=== PATIENT | female | born 1945 | race Caucasian/White ===

== ENCOUNTER → 2016-06-07 | Outpatient (CLI) | payer MEDICARE ==
[~2016-06-07] MED LIST: ASPI-587 PO; ESCI20TA2 PO; ESTR0.5T PO; FLT05NA16 NSEACH; MEDR2.5T PO; METO25TA PO; OMEG1CAP51 PO; PNT40TEC PO; SIMV40TA4 PO
--- OUTSIDE RECORDS SUMMARY | 2016-06-07 14:22 | XMS REPORT | Continuity of Care Document ---
Author Author [facility] Organization [facility] Address Unknown Phone Unavailable Allergies Active Description Code Type Severity Reaction Onset Reported/Identified Relationship to Patient Clinical Status Yes NKANo Known Allergies NKA Miscellaneous Allergy Mild N/A 11/10/2005 Medications Problems Date Dx Coded Attending Type Code Diagnosis Diagnosed By 10/29/2014 DEAN LUONG DO Ot 715.90 10/29/2014 DEAN LUONG DO Ot 724.3 11/21/2014 DEAN LUONG DO Ot 715.90 11/21/2014 DEAN LUONG DO Ot 724.3 11/27/2014 DEAN LUONG DO Ot 715.90 11/27/2014 DEAN LUONG DO Ot 724.3 Procedures Results Encounters ACCT No. Visit Date/Time Discharge Status Pt. Type Provider Facility Loc./Unit Complaint [id number] 10/27/2014 14:53:00 2014 23:59:59 CLS Outpatient DEAN LUONG DO [facility] RAD [id number] 06/18/2013 12:20:00 2013 15:55:00 DIS Outpatient [id number] 06/12/2013 07:29:00 2013 23:59:59 CLS Outpatient
--- NOTE | 2016-06-23 19:01 | Diagnostic Imaging Report ---
Bilateral screening mammogram The current study was also evaluated with a Computer Aided Detection (CAD) system. Indication: Screening. No current complaints stated on the questionnaire. COMPARISON: 04/09/15. FINDINGS: The breasts are composed of heterogeneously dense parenchyma which may decrease mammographic sensitivity. There are benign-appearing calcifications seen. Allowing for technique and positional differences, no suspicious change is seen. IMPRESSION: Dense breasts with no definite change. ACR BI-RADS Category 2: Benign findings. Result letter will be mailed to the patient. Note: At least 10% of breast cancer is not imaged by mammography. Dictated by: Dictated on workstation # [id number]
== END ==
LOC: RAD 14:19
PROVIDERS: ATTEND Obstetrics & Gynecology
DX: Z12.31 Encounter for screening mammogram for malignant neoplasm of breast (principal)
CPT/HCPCS: 77067

== ENCOUNTER → 2017-01-13 | Outpatient (CLI) | payer MEDICARE ==
[~2017-01-13] MED LIST changes: +CATHETER FLUSH 10 ML SYR IV PRN; +REGADENOSON 0.4 MG/5 ML SYR (LEXISCAN) IV ONE
[2017-01-13 08:07] VITALS: BP 176/103
--- NOTE | 2017-01-14 10:04 | STRESS TEST ---
DATE OF SERVICE: 01/13/2017 RESTING AND POST REGADENOSON TECHNETIUM 99M TETROFOSMIN SPECT CT IMAGING ORDERING PHYSICIAN: Dr. Lopes. PRIMARY PHYSICIAN: Dr. Lopes. CLINICAL DIAGNOSES: Fatigue, hypertension. Baseline images were carried out after injection of 10.75 mCi of technetium-99m Tetrofosmin. This was followed by 0.4 mg regadenoson and 30.5 mCi of technetium-99m Tetrofosmin under Dr. Lopes's supervision and the electrocardiographic portion of the study is reported separately by him. Review of images at rest and following stress does not indicate any significant perfusion defects consistent with any significant myocardial ischemia or infarction. Gated images show normal global left ventricular systolic function with normal regional wall motion. Left ventricular ejection fraction is calculated to be 67%. Left ventricular end-diastolic volume is 30 mL. TID is absent (1.11). CONCLUSIONS: 1. No evidence of any significant myocardial ischemia or infarction on this study. 2. Normal global left ventricular systolic function with a calculated ejection fraction of 67%. 3. Normal regional wall motion. Job ID: [id number] DocumentID: [id number] Dictated Date: 01/13/2017 10:12:00 Tour Operator Date: 01/13/2017 10:52:30 Dictated By: WILLIAM HENNING MD, MA, FACP, FACC,
== END ==
LOC: CARD 06:41
PROVIDERS: ATTEND Internal Medicine
DX: R53.83 Other fatigue (principal); I10 Essential (primary) hypertension
CPT/HCPCS: 78452; 93017

== ENCOUNTER 2018-08-07 05:34 | Outpatient (CLI) | payer MEDICARE ==
[~2018-08-07] VITALS: Ht 162.6 cm; Wt 59.4 kg
[~2018-08-07 05:34] MED LIST changes: -CATHETER FLUSH 10 ML SYR IV PRN; -REGADENOSON 0.4 MG/5 ML SYR (LEXISCAN) IV ONE
[2018-08-07] MEDS ORDERED: METO-370 PO (13:37)
[2018-08-07] MEDS ORDERED: UBID100C17 PO (13:37)
[2018-08-07] MEDS ORDERED: TR1C15 TP (13:37)
[2018-08-07] MEDS ORDERED: OMG1KC PO (13:37)
[2018-08-07] MEDS ORDERED: OMEP20CA12 PO (13:37)
[2018-08-07] MEDS ORDERED: CHOL500044 PO (13:37)
[2018-08-07] MEDS ORDERED: LORA10TA7 PO (13:37)
[2018-08-07] MEDS ORDERED: DOCU-238 PO (13:37)
[2018-08-07] MEDS ORDERED: ESCI20TA PO (13:37)
[2018-08-07] MEDS ORDERED: AMLO5TAB9 PO (13:37)
[2018-08-07] MEDS ORDERED: SIMV40TA4 PO (13:37)
[2018-08-07] MEDS ORDERED: FLUT9.9S NS (13:37)
[2018-08-07] MEDS ORDERED: ASPI-586 PO (13:37)
== END 2018-08-07 14:08 | disposition home or self-care (01) ==
LOC: PREOP 05:34
PROVIDERS: ATTEND Surgery
DX: Z01.818 Encounter for other preprocedural examination (principal)

== ENCOUNTER 2018-08-14 07:01 | Day surgery (SDC) | payer MEDICARE ==
[~2018-08-14] VITALS: Ht 162.6 cm; Wt 59.4 kg
[~2018-08-14 07:01] MED LIST changes: +AMLO5TAB9 PO; +ASPI-586 PO; +CHOL500044 PO; +DOCU-238 PO; +ESCI20TA PO; +FLUT9.9S NS; +LORA10TA7 PO; +METO-370 PO; +OMEP20CA12 PO; +OMG1KC PO; +TR1C15 TP; +UBID100C17 PO
[2018-08-14] MEDS ORDERED: LACTATED RINGERS 1,000 ML IV STA (07:02)
--- OUTSIDE RECORDS SUMMARY | 2018-08-14 07:04 | XMS REPORT | Continuity of Care Document ---
Author Organization Unknown Address Unknown Allergies Active Description Code Type Severity Reaction Onset Reported/Identified Relationship to Patient Clinical Status Yes NKANo Known Allergies NKA Miscellaneous Allergy Mild N/A 11/10/2005 Yes clindamycin [id number] Drug Allergy Mild RASH 08/07/2018 Yes phenytoin [id number] Drug Allergy Mild HIVES 08/07/2018 Medications There is no data. Problems Date Dx Coded Attending Type Code Diagnosis Diagnosed By 06/18/2013 LEWIS BUENO DO Ot 530.11 REFLUX ESOPHAGITIS 06/18/2013 LEWIS BUENO DO Ot 530.81 ESOPHAGEAL REFLUX 06/18/2013 LEWIS BUENO DO Ot 553.3 DIAPHRAGMATIC HERNIA 06/18/2013 LEWIS BUENO DO Ot 562.10 DIVERTICULOSIS COLON (W/O MENT OF HEMORR 06/18/2013 LEWIS BUENO DO Ot V16.0 FAMILY HX-GI MALIGNANCY 10/29/2014 DEAN LUONG DO Ot 715.90 10/29/2014 DEAN LUONG DO Ot 724.3 11/21/2014 DEAN LUONG DO Ot 715.90 11/21/2014 DEAN LUONG DO Ot 724.3 11/27/2014 DEAN LUONG DO Ot 715.90 11/27/2014 DEAN LUONG DO Ot 724.3 06/07/2016 ROLANDO TREVINO, GRACIELA Patel Ot Z12.31 ENCNTR SCREEN MAMMOGRAM FOR MALIGNANT NE 06/07/2016 GRACIELA MARSHALL MD Ot Z12.31 ENCNTR SCREEN MAMMOGRAM FOR MALIGNANT NE 06/07/2016 GRACIELA MARSHALL MD Ot Z12.31 ENCNTR SCREEN MAMMOGRAM FOR MALIGNANT NE 06/09/2016 LEWIS BUENO DO Ot V72.84 EXAM PRE-OPERATIVE NOS 06/09/2016 DEAN LUONG DO Ot 715.90 OSTEOARTHROS NOS-UNSPEC 06/09/2016 DEAN LUONG DO Ot 724.3 SCIATICA 06/09/2016 ROLANDO TREVINO, GRACIELA Patel Ot Z12.31 ENCNTR SCREEN MAMMOGRAM FOR MALIGNANT NE 06/28/2016 GRACIELA MARSHALL MD Ot Z12.31 ENCNTR SCREEN MAMMOGRAM FOR MALIGNANT NE 01/16/2017 DEAN LUONG DO Ot I10 ESSENTIAL (PRIMARY) HYPERTENSION 01/16/2017 DEAN LUONG DO Ot R53.83 OTHER FATIGUE 02/06/2017 DEAN LUONG DO Ot I10 ESSENTIAL (PRIMARY) HYPERTENSION 02/06/2017 DEAN LUONG DO Ot R53.83 OTHER FATIGUE 02/10/2017 DEAN LUONG DO Ot I10 ESSENTIAL (PRIMARY) HYPERTENSION 02/10/2017 DEAN LUONG DO Ot R53.83 OTHER FATIGUE 08/07/2018 LEWIS BUENO DO Ot Z01.818 ENCOUNTER FOR OTHER PREPROCEDURAL EXAMIN 08/10/2018 LEWIS BUENO DO Ot V72.84 EXAM PRE-OPERATIVE NOS 08/10/2018 DEAN LUONG DO Ot 715.90 OSTEOARTHROS NOS-UNSPEC 08/10/2018 DEAN LUONG DO Ot 724.3 SCIATICA 08/10/2018 ROLANDO TREVINO, GRACIELA Patel Ot Z12.31 ENCNTR SCREEN MAMMOGRAM FOR MALIGNANT NE 08/10/2018 DEAN LUONG DO Ot I10 ESSENTIAL (PRIMARY) HYPERTENSION 08/10/2018 DEAN LUONG DO Ot R53.83 OTHER FATIGUE Procedures There is no data. Results There is no data. Encounters ACCT No. Visit Date/Time Discharge Status Pt. Type Provider Facility Loc./Unit Complaint [id number] 08/07/2018 05:34:00 08/07/2018 14:08:00 DIS Outpatient LEWIS BUENO DO [facility] PREOP COLONOSCOPY/EGD [id number] 01/13/2017 06:41:00 01/13/2017 23:59:59 CLS Outpatient DEAN LUONG DO [facility] CARD FATIGUE,HTN [id number] 06/07/2016 14:19:00 06/07/2016 23:59:59 CLS Outpatient ROLANDO TREVINO, GRACIELA Patel [facility] RAD SCREENING [id number] 10/27/2014 14:53:00 10/27/2014 23:59:59 CLS Outpatient DEAN LUONG DO [facility] RAD SCIATICA OSTEOARTHRITIS [id number] 06/18/2013 12:20:00 06/18/2013 15:55:00 DIS [facility];REFLUX [id number] 06/12/2013 07:29:00 06/12/2013 23:59:59 CLS Outpatient LEWIS BUENO DO [facility] PREOP FAMILY HISTORY COLON CANCER;REFLUX [id number] 08/14/2018 08:00:00 PEN Preadmit LEWIS BUENO DO [facility] ENDO SCREENING/FAMILY HX COLON CA/GERD
[2018-08-14] MEDS ORDERED: LACTATED RINGERS 1,000 ML IV ONE (07:09)
[2018-08-14] MEDS ORDERED: HURRICAINE EXT TUBE (BENZOCAINE) XX PRN (07:15)
[2018-08-14 07:24] VITALS: BP 166/90
[2018-08-14] MEDS ORDERED: PROPOFOL INJECTION 50 ML IV ONE (07:28)
[2018-08-14] MEDS ORDERED: MIDAZOLAM 2 MG/2 ML (VERSED) VIAL ONE (07:28)
[2018-08-14] MEDS ORDERED: HURRICAINE EXT TUBE (BENZOCAINE) ONE (08:09)
--- NOTE | 2018-08-14 08:18 | Progress Note-Pre Operative ---
Pre-Operative Progress Note H&P Reviewed The H&P was reviewed, patient examined and no changes noted. Date Seen by Provider: August 14, 2018 Time Seen by Provider: 08:00 Date H&P Reviewed: August 14, 2018 Time H&P Reviewed: 08:00 Pre-Operative Diagnosis: family history colon cancer, gerd LEWIS BUENO DO August 14, 2018 08:18
--- NOTE | 2018-08-14 08:50 | Progress Note-Post Operative ---
Post-Operative Progess Note Surgeon (s)/Sales/Marketing (s) Surgeon LEWIS BUENO DO Sales/Marketing: na Pre-Operative Diagnosis family history colon cancer, gerd Post-Operative Diagnosis hiatal hernia, normal colon Procedure & Operative Findings Date of Procedure 08/14/18 Procedure Performed/Findings egd c biopsies, colonoscopy Anesthesia Type per rotor balancer Estimated Blood Loss Estimated blood loss (mL): none Specimens/Packing Specimens Removed antrum, ge LEWIS BUENO DO August 14, 2018 08:50
[2018-08-14] MEDS ORDERED: PANT40TA2 PO (08:51)
[2018-08-14 09:00] VITALS: BP 115/70
[2018-08-14 09:25] VITALS: BP 154/80
[2018-08-14 09:26] VITALS: BP 154/80
--- NOTE | 2018-08-14 11:12 | Anesthesia-General Post-Op ---
MAC Patient Condition Mental Status/LOC: Same as Preop Cardiovascular: Satisfactory Nausea/Vomiting: Absent Respiratory: Satisfactory Pain: Controlled Complications: Absent Post Op Complications Complications None Follow Up Care/Instructions Patient Instructions None needed. Anesthesiology Discharge Order Discharge Order Patient is doing well, no complaints, stable vital signs, no apparent adverse anesthesia problems. No complications reported per nursing. MARIA INES BROWN CRNA August 14, 2018 11:12
--- NOTE | 2018-08-14 12:43 | OPERATIVE REPORT ---
DATE OF SERVICE: 08/14/2018 PREOPERATIVE DIAGNOSES: Family history of colon cancer and GERD. POSTOPERATIVE DIAGNOSES: Hiatal hernia, normal colon. PROCEDURES: EGD with biopsies, colonoscopy. SURGEON: Lewis Santillan DO ANESTHESIA: Per PODOPEDIATRICIAN. ESTIMATED BLOOD LOSS: None. COMPLICATIONS: None. INDICATIONS: The patient is a 72-year-old female with a family history of colon cancer and increasing reflux symptoms. She understands the risk and benefits of procedure and wished to proceed with procedure. Consent was signed and on the chart. DESCRIPTION OF PROCEDURE: The patient was taken to the endoscopy suite, placed in left lateral recumbent position. Timeout was performed. Scope was inserted in the mouth, down the esophagus, stomach and into the duodenum without difficulty. There were no polyps, masses or ulcerations of the duodenum. Scope was then slowly retracted back into the stomach, which was further insufflated. No polyps, masses or ulcerations were present in the stomach. Biopsy of the antrum was obtained. Scope was retroflexed noting a small hiatal hernia. No other pathology was noted. Scope was returned to its normal position, slowly withdrawn to distal esophagus, which had no polyps, masses or ulcerations. Biopsy of the GE junction was obtained. Scope was then slowly retracted back to completely removed, noting no other pathology. Digital rectal exam was performed. No palpable polyps, masses or ulcerations. The scope was inserted in the rectum and advanced all the way to the cecum with minimal difficulty. Prep was adequate. Scope was then slowly retracted back. There were no polyps, masses or ulcerations in the cecum, ascending, transverse, descending and sigmoid colon. Once in the rectum, scope was retroflexed noting no other pathology. Scope was returned to its normal position, slowly withdrawn until completely removed. The patient tolerated the procedure well without any complication. She was taken to recovery room in stable condition. RECOMMENDATIONS: The patient will follow up in the office in 2 weeks to discuss pathology results. If she has any problems before that she should be seen at that time. We will stop the omeprazole and start Protonix 40 mg daily to see if she has any improvement. If no improvement, we will consider working up her gallbladder. Job ID: [id number] DocumentID: [id number] Dictated Date: 08/14/2018 08:54:24 Video Control Operator Date: 08/14/2018 12:43:01 Dictated By: LEWIS SANTILLAN DO
== END 2018-08-14 09:30 | disposition home or self-care (01) ==
LOC: ENDO 07:01
PROVIDERS: ATTEND Surgery
DX: Z12.11 Encounter for screening for malignant neoplasm of colon (principal); Z80.0 Family history of malignant neoplasm of digestive organs; K21.9 Gastro-esophageal reflux disease without esophagitis; K44.9 Diaphragmatic hernia without obstruction or gangrene; I10 Essential (primary) hypertension; E78.5 Hyperlipidemia, unspecified; F41.9 Anxiety disorder, unspecified; Z79.899 Other long term (current) drug therapy; Z79.82 Long term (current) use of aspirin
CPT/HCPCS: 43239; G0105

== ENCOUNTER → 2018-09-11 | Outpatient (CLI) | payer MEDICARE ==
[~2018-09-11] MED LIST changes: +PANT40TA2 PO
--- NOTE | 2018-09-11 10:16 | Diagnostic Imaging Report ---
PROCEDURE: US Gallbladder. TECHNIQUE: Multiple real-time grayscale images were obtained over the right upper quadrant in various projections. INDICATION: Epigastric pain. COMPARISON: None available. FINDINGS: The liver is normal in size and echogenicity. There is no focal hepatic mass. The main portal vein is patent with antegrade flow. The gallbladder is distended without gallstones, wall thickening, or pericholecystic fluid. The common bile duct measures up to 0.5 cm in diameter. No intrahepatic biliary dilation. The visualized portions of the pancreas are normal. Portions of the head and tail are obscured by overlying bowel gas. The right kidney is normal in size. No hydronephrosis, shadowing calculi, or suspicious mass lesion. IMPRESSION: 1. No cholelithiasis or features of acute cholecystitis. 2. No biliary duct dilatation. Dictated by: Dictated on workstation # [id number]
== END ==
LOC: RAD 07:52
PROVIDERS: ATTEND Surgery
DX: R10.13 Epigastric pain (principal)
CPT/HCPCS: 76705

== ENCOUNTER → 2018-09-24 | Outpatient (CLI) | payer MEDICARE ==
[~2018-09-24] MED LIST changes: +CATHETER FLUSH 10 ML SYR IV PRN
--- NOTE | 2018-09-24 20:33 | Diagnostic Imaging Report ---
INDICATION: Epigastric pain. TECHNIQUE: Acquisitions were acquired of the abdomen after the administration of 5.22 mCi of technetium-99m Choletec. The ejection fraction was calculated after the patient ingested 8 ounces of Ensure one hour into the examination. FINDINGS: There is homogeneous uptake of isotope throughout the liver. There is significant accumulation in the gallbladder by 30 minutes. There is free flow of activity in the small bowel. The ejection fraction was calculated to be 82%. IMPRESSION: Normal hepatobiliary scan and ejection fraction. Dictated by: Dictated on workstation # [id number]
== END ==
LOC: CARD 12:52
PROVIDERS: ATTEND Surgery
DX: R10.13 Epigastric pain (principal)
CPT/HCPCS: 78227

== ENCOUNTER 2019-05-06 19:58 | Outpatient (CLI) | payer MEDICARE ==
[~2019-05-06 19:58] MED LIST changes: -CATHETER FLUSH 10 ML SYR IV PRN; -METO-370 PO; +METO50TA7 PO; +OMEP-280 PO; -OMEP20CA12 PO; +SIMV40TA25 PO
== END 2019-05-07 06:42 | disposition home or self-care (01) ==
LOC: SLEEP 19:58
PROVIDERS: ATTEND Internal Medicine Sleep Medicine
DX: G47.33 Obstructive sleep apnea (adult) (pediatric) (principal); I10 Essential (primary) hypertension; E78.00 Pure hypercholesterolemia, unspecified; D32.9 Benign neoplasm of meninges, unspecified; Z80.2 Family history of malignant neoplasm of other respiratory and intrathoracic organs
CPT/HCPCS: 95811

== ENCOUNTER 2020-01-24 07:15 | Outpatient (RCR) | payer MEDICARE ==
[~2020-01-24] VITALS: Ht 162 cm; Wt 62.0 kg
[~2020-01-24 07:15] MED LIST changes: +AMLO-250 PO; -AMLO5TAB9 PO; -OMEP-280 PO; +OMEP20CA18 PO
[2020-01-24] MEDS ORDERED: CATHETER FLUSH 10 ML SYR IV PRN (07:30)
[2020-01-24] MEDS ORDERED: REGADENOSON 0.4 MG/5 ML SYR (LEXISCAN) IV ONE ×3 (08:03→08:45)
[2020-01-24 08:33] VITALS: BP 165/88
--- NOTE | 2020-01-24 11:22 | Cardiology Stress Test Report ---
Stress Test Report Date of Procedure/Referring: Date of Procedure: Jan 24, 2020 PCP Colton Lopes DO Admitting Physician Colton Lopes DO Indications: CAD Baseline Vital Signs Vital Signs Date Time Temp Pulse Resp B/P (MAP) Pulse Ox O2 Delivery O2 Flow Rate FiO2 01/24/20 08:33 88 18 165/88 (344) 97 Summary: Patient receive a resting and stress dose of Myoview, images were acquired and reviewed in the short axis view, horizontal long axis view and vertical long axis view. TID: 1.08 SSS: 0 SDS: 0 EF: 64 1. No ischemia or infarction on SPECT images 2. Normal left ventricular size, EF 64 percent HELEN VARGAS MD Jan 24, 2020 11:22
== END 2020-04-23 | disposition home or self-care (01) ==
LOC: CARD 07:15 → EDSTATUS 07:15 → CARD 08:16
PROVIDERS: ATTEND Internal Medicine
DX: I25.10 Atherosclerotic heart disease of native coronary artery without angina pectoris (principal); R19.7 Diarrhea, unspecified
CPT/HCPCS: 78452; 93017; A9502

== ENCOUNTER 2021-05-04 13:17 | Inpatient (IN) | payer MEDICARE ==
[~2021-05-04] VITALS: Ht 162.1 cm; Wt 63.0 kg
[~2021-05-04 13:17] MED LIST changes: +ACET-2267 PO; +ALPRAZolam 0.25 MG (XANAX) TAB PO PRN; +ASPI-1238 PO; +ATOR80TA76 PO; +BISACODYL 10 MG SUPP (DULCOLAX) PR PRN; +CALCIUM CARBONATE 500 MG (TUMS) TAB.CHEW PO PRN; +CHOL-34 PO; +DEXA4TAB PO; +DOCU-143 PO; -DOCU-238 PO; +DOCU-26 PO; +DOCUSATE SODIUM 100 MG (COLACE) CAP PO PRN; +ESCI20TA39 PO; +FAMO1TAB3 PO; +FLEET ENEMA ADULT 1 EA BTL PR PRN; +FLUT9.9S NSEACH; +LACTULOSE SYRUP 10GM/15ML (ENULOSE) 30ML UDC PO PRN; +LEVE500T95 PO; +LOPERAMIDE 2 MG (IMODIUM) TABLET PO PRN; +MELATONIN 3 MG TABLET PO PRN; +METH-731 PO; +METO50TA15 PO; +OMEG-157 PO; +ONDANSETRON 4 MG (ZOFRAN) ORAL DISSOLVE TAB PO PRN; +OXYC-473 PO; +SENN-109 PO; +UBID100C44 PO; +diphenhydrAMINE 25 MG TAB (BENADRYL) PO PRN; +guaiFENesin/CODEINE (ROBITUSSIN AC) 10ML UDC PO PRN
[2021-05-04 14:00] VITALS: BP 142/76
--- NOTE | 2021-05-04 14:14 | Occupational Therapy Eval ---
OT Evaluation-General/PLF Medical Diagnosis Admission Date May 04, 2021 at 13:17 Medical Diagnosis: CVA Onset Date: Apr 27, 2021 Therapy Diagnosis Therapy Diagnosis: decreased ADL status Height/Weight Height (Feet): 5 Height (Inches): 4.00 Weight (Pounds): 131 Weight (Ounces): 0.0 Referral Physician: Aurora Referral Reason: Activity Tolerance, Self Care, Evaluation/Treatment, Strengthening/ROM Medical History Additional Medical History arthritis, GERD, hiatal hernia, hyperlipidemia, HTN, meningioma s/p resection 2005, DILLON on CPAP Current History recurrent meningioma s/p 2nd resection 04/29/21. IR on 04/27 for pre op emboli complicated by thrombus in BETO; s/p IA tPA TICI achieved. Social History Home: Multilevel Current Living Status: Spouse Entry Into Home: Stairs With Railing Steps Into Home: 3 Steps Inside Home: 12 Pt lives in a 2 story house, her primary bedroom/bathroom in the basement. There is a bedroom/bathroom on the main level, but pt doesn't want to use. ADL-Prior Level of Function SCALE: Activities may be completed with or without assistive devices. 2-Eojngxajwg-pohqspn completes the activity by him/herself with no assistance from a helper. 5-Set-up or Clean-up Assistance-helper sets up or cleans up; patient completes activity. Avella assists only prior to or following the activity. 4-Supervision or Touching Assistance-helper provides verbal cues and/or touching/steadying and/or contact guard assistance as patient completes activity. Assistance may be provided throughout the activity or intermittently. 3-Partial/Moderate Assistance-helper does LESS THAN HALF the effort. Avella lifts, holds or supports trunk or limbs, but provides less than half the effort. 2-Substantial/Maximal Assistance-helper does MORE THAN HALF the effort. Avella lifts or holds trunk or limbs and provides more than half the effort. 6-Jvndclowv-zllvop does ALL the effort. Patient does none of the effort to complete the activity. Or, the assistance of 2 or more helpers is required for the patient to complete the activity. If activity was not attempted, code reason: 7-Patient Refused. 9-Not Applicable-not attempted and the patient did not perform the activity before the current illness, exacerbation or injury. 10-Not Attempted due to Environmental Limitations-(lack of equipment, weather restraints, etc.). 88-Not Attempted due to Medical Conditions or Safety Concerns. ADL PLOF Comments Pt reports IND with ADLs and functional mobility at [facility], no AD/AE. Pt is able to go up/down the flight of stairs within her home multiple times throughout the day. In the primary bathroom downstairs, she has a walk in shower with a SC. On the main level she has a bathroom with a tub/shower and one that is handicap accessible that has a shower and grab bars. Self Care: Independent Functional Cognition: Independent DME/Equipment: Bath Chair, Shower DME/Equipment Comments owns a walker and a cane OT Current Status Subjective Pt arrived to [facility] with daughter and . Pt denied pain Mental Status/Objective Patient Orientation: Person, Place, Situation Current Glasses/Contacts: Yes Hearing Aids: No Dentures/Partials: No Hand Dominance: Right Upper Extremity ROM WFL, BUE shoulder flexion to approx 150 degrees Upper Extremity Coordination WFL Upper Extremity Sensation WFL Upper Extremity Strength grossly 4+/5 ADL-Treatment Eating (QC): 6 (IND with breakfast per pt report.) Oral Hygiene (QC): 7 Shower/Bathe Self (QC): 7 Upper Body Dressing (QC): 7 Lower Body Dressing (QC): 7 On/Off Footwear (QC): 7 Toileting Hygiene (QC): 7 Other Treatments OT evaluation complete. OT/PT cotreat due to skill of 2 clinicians required which a rehabilitation caseworker could not perform in order to coordinate UE/LEs, decrease fall risk, focus on higher level balance tasks, and due to pt's limitations in strength and activity tolerance. OT focused on UE placement, cues for sequencing and safety, and ADLs, PT focused on LE placement, gross overall movements, transfers/mobility. Pt completed functional mobility around [facility] common area using FWW, car transfer, bed mobility, stairs, and uneven surface, taking rest breaks as needed. Pt completed visual scanning task, locating mcclain bags throughout upper/lower cabinets and drawers. Pt able to complete x2 trials, min verbal cues to locate all objects. Pt taken to therapy gym, completing balloon batting activity. Pt attempted to complete without UE support, but unsteady, instead completing 1 round using RUE and 1 round LUE. Pt returned to room, transferring to recliner. Post tx, pt in recliner, call light in reach and all needs met IND with rolling and supine to/from sit, sit to/from stand transfer CGA, CGA car transfer. Functional mobility 200' using FWW, CGA. Pt needed occasional cues for positioning and safety. Education OT Patient Education: Correct positioning, Energy conservation, Modified ADL techniques, Progress toward Goal/Update tx plan, Purpose of tx/functional activities, Rehab process Teaching Recipient: Patient Teaching Methods: Discussion Response to Teaching: Verbalize Understanding OT Short Term Goals Short Term Goals Time Frame: May 12, 2021 Toileting hygiene: 4 Upper body dressin Lower body dressin OT Shelter Goals Disability Benefits Specialist Goals Time Frame: May 28, 2021 Eating (QC): 6 Oral Hygiene (QC): 6 Toileting Hygiene (QC): 6 Shower/Bathe Self (QC): 6 Upper Body Dressing (QC): 6 Lower Body Dressing (QC): 6 On/Off Footwear (QC): 6 Additional Goals: 1-Demonstrate ADL Tasks, 2-Verbalize Understanding, 3- ImproveStrength/Liang 1=Demonstrate adherence to instructed precautions during ADL tasks. 2=Patient will verbalize/demonstrate understanding of assistive devices/modifications for ADL. 3=Patient will improve strength/tolerance for activity to enable patient to perform ADL's. OT Education/Plan Problem List/Assessment Assessment: Decreased Activ Tolerance, Decreased UE Strength, Impaired Funct Balance, Impaired I ADL's, Impaired Self-Care Skills Discharge Recommendations Plan/Recommendations: Continue POC Treatment Plan/Plan of Care Patient would benefit from OT for education, treatment and training to promote independence in ADL's, mobility, safety and/or upper extremity function for ADL's. Plan of Care: ADL Retraining, Functional Mobility, Group Exercise/Act as Ind, UE Funct Exercise/Act Treatment Duration: May 28, 2021 Frequency: At least 5 of 7 days/Wk (IRF) Estimated Hrs Per Day: 1.5 hours per day Agreement: Yes Rehab Potential: Good Time/GCodes Start Time: 13:25 Stop Time: 14:55 Total Time Billed (hr/min): 90 Billed Treatment Time 5545-9111 OT evaluation, 2942-6781 OT/PT cotreat 1, EVM (10'), FA 5 (80') HIREN HORN OT May 04, 2021 14:14
--- NOTE | 2021-05-04 14:31 | Progress Note ---
CHARO GROSSMAN 05/04/21 1431: Progress Note History and physical: Selena is a 75yo F referred to the rehabilitation unit from the [facility](). She was admitted to to have a repeat resection of a meningioma. On 04/27/21 she was having a preoperative intra-angiogram when she had a left BETO occlusion and MCA embolism. She had tPA done with complete perfusion achieved. After the cerebral infarction she had worsening expressive aphasia and a complete right facial droop. She had the resection of the meningioma done on 04/29/21 and it was successful without intraoperative complications. After her surgery she was meeting with PT/OT/ST to work on returning her to baseline activities. She had a high anion gap metabolic acidosis on 04/30/21. Due to impaired balance, fatigue, decreased activities of daily living, and moderately impaired written/verbal expression she was referred to the rehabilitation program. 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 No history of smoking, drinking, or illicit drug use. ROS- Patient says she can hear a squeaking sound in her head since her resection surgery. She finds it hard to concentrate during conversations because of the noise she is hearing. She says she feels fatigued and weak. She denies a headache, chest pain, palpitations, shortness of breath, dysuria, diarrhea, constipation, and vomiting. Exam- Patient was alert and eating a snack during the interview. She says the transport from [place] to [place] went well. CN 3-12 exam showed mild weakness of right facial muscles when smiling and raising eyebrows. 3/5 strength in the right arm with flexion and extension at the elbow with resistance. Bilateral lower extremities had 5/5 strength. Patient was oriented X3. Vitals- HR-78 RR-18 BP-142/76 KARLEY MARTÍNEZ DO 05/05/21 0548: Supervisory-Addendum Brief Verification & Attestation Participated in pt care: history, MDM, physical Personally performed: exam, history, MDM, supervision of care Care discussed with: Medical Student Procedures: n/a Results interpretation: Verified all documentation Verification and Attestation of Medical Student E/M Service A medical student performed and documented this service in my presence. I reviewed and verified all information documented by the medical student and made modifications to such information, when appropriate. I personally performed the physical exam and medical decision making. Karley Martínez, May 05, 2021,05:48 CHARO GROSSMAN May 04, 2021 14:31 KARLEY MARTÍNEZ DO May 05, 2021 05:48
--- NOTE | 2021-05-04 14:45 | Physical Therapy Evaluation ---
PT Evaluation-General Medical Diagnosis Admission Date May 04, 2021 at 13:17 Medical Diagnosis: CVA Onset Date: Apr 27, 2021 Therapy Diagnosis Therapy Diagnosis: impaired mobility, strength, endurance, balance Height/Weight Height (Feet): 5 Height (Inches): 4.00 Weight (Pounds): 131 Weight (Ounces): 0.0 Precautions Precautions/Isolations: Fall Prevention, Standard Precautions Referral Physician: Karley Simon DO Reason for Referral: Evaluation/Treatment Medical History Pertinent Medical History: Arthritis, GERD, HTN Additional Medical History hiatal hernia, hyperlipidemia, meningioma s/p resection 2005, DILLON on CPAP Current History recurrent meningioma s/p 2nd resection 04/29/21. IR on 04/27 for pre op emboli complicated by thrombus in BETO; s/p IA tPA TICI achieved. Reviewed History: Yes Social History Home: Multilevel Current Living Status: Spouse Entry Into Home: Stairs With Railing PT Steps Into Home: 3 PT Steps Inside Home: 12 Prior Prior Level of Function SCALE: Activities may be completed with or without assistive devices. 7-Djiocllkvl-npxnjzy completes the activity by him/herself with no assistance from a helper. 5-Set-up or Clean-up Assistance-helper sets up or cleans up; patient completes activity. [place] assists only prior to or following the activity. 4-Supervision or Touching Assistance-helper provides verbal cues and/or touching/steadying and/or contact guard assistance as patient completes activity. Assistance may be provided throughout the activity or intermittently. 3-Partial/Moderate Assistance-helper does LESS THAN HALF the effort. [place] lifts, holds or supports trunk or limbs, but provides less than half the effort. 2-Substantial/Maximal Assistance-helper does MORE THAN HALF the effort. [place] lifts or holds trunk or limbs and provides more than half the effort. 9-Gidvihras-xejurq does ALL the effort. Patient does none of the effort to complete the activity. Or, the assistance of 2 or more helpers is required for the patient to complete the activity. If activity was not attempted, code reason: 7-Patient Refused. 9-Not Applicable-not attempted and the patient did not perform the activity before the current illness, exacerbation or injury. 10-Not Attempted due to Environmental Limitations-(lack of equipment, weather restraints, etc.). 88-Not Attempted due to Medical Conditions or Safety Concerns. Bed Mobility: 6 Transfers (B,C,W/C): 6 Gait: 6 Stairs: 6 Indoor Mobility (Ambulation): Independent Stairs: Independent PT Evaluation-Current Subjective Patient comes to hospital via family transport, get the patient from there. Patient has no complaints of pain. Will be co-treating with OT for part of tx due to poor patient mobility, strength, endurance, severe fatigue after long drive, coordinate UE and LE during activity, safety and reduce risk of falls. Pt/Family Goals to be independent at home. Objective Patient Orientation: Person, Place, Situation ROM/Strength ROM Lower Extremities WNL Strength Lower Extremities LLE (hip flexion 3+/5, knee flexion 4+/5, knee extension 4+/5, dorsiflexion 3+/5), RLE (hip flexion 3+/5, knee flexion 4+/5, knee extension 4+/5, dorsiflexion 3+/5) Neuromuscular (Tone, Coordination, Reflexes) patient has intact peripheral vision and tracking Sensory Vision: Wears Glasses Hearing: Functional Hand Dominance: Right Sensation Right Lower Extremit: Intact Sensation Left Lower Extremity: Intact Transfers Roll Left & Right (QC): 6 Sit to Lying (QC): 6 Lying to Sitting/Side of Bed(Q: 6 Sit to Stand (QC): 4 Chair/Feu-db-Mebjr Xfer(QC): 4 Toilet Transfer (QC): 4 Car Transfer (QC): 4 Patient performs rolling and supine <-> sit with independence, sit <-> stand and transfers with CGA, car transfer CGA. Patient needs occasional cues for positioning and safety. Gait Does the Patient Walk?: Yes Mode of Locomotion: Walk Anticipated Mode of Locomotion: Walk Walk 10 feet (QC): 4 Walk 50 ft with 2 Turns(QC): 4 Walk 150 ft (QC): 4 Walking 10ft/uneven surface-QC: 4 Distance: 200', 120', 150' Gait Assistive Device: FWW Comments/Gait Description Patient can ambulate 200' with a rolling walker with CGA (including 50' with at least 2 turns of 90 degrees and 10' over an uneven surface). Patient has slow ambulation, moments of unsteadiness but no vaughn LOB Wheelchair Training Does the Pt Use a Wheelchair?: No Wheel 50 ft with 2 turns (QC): 9 Wheel 150 ft (QC): 9 Stairs #of Steps: 4 1 Step (curb) (QC): 4 4 Steps (QC): 4 12 Steps (QC): 88 Patient can go up and down 4 steps using 2 handrails with CGA, cues for safety and foot placement Balance Sitting Static: Normal Sitting Dynamic: Normal Standing Static: Good Standing Dynamic: Fair Picking up an Object (QC): 4 (using broadcast maintenance technician) Treatment PT performed bed mobility and transfers, ambulation, stair training, balance and safety during balance activity, OT performed balance activities, UE positioning and safety during activity. Patient performed a standing balance activity hitting balloon with one hand on walker, she tried it with no hands on walker but lost her balance too much. Patient also performed an activity where she had to use the walker and find objects and different heights and return them to a basket, working on balance and turning and vision. Assessment/Needs Patient in recliner post tx with nurse call, phone, tray, all needs met. Patient has impaired mobility, strength, endurance. Patient is mostly CGA with mobility, she does have some unsteadiness on occasion with ambulation. Rehab Potential: Fair PT Short Term Goals Short Term Goals Time Frame: May 11, 2021 Roll Left & Right: 6 Sit to lyin Lying to sitting on side of be: 6 Sit to stand: 4 (SBA) Chair/hrv-oi-iemvk transfer: 4 (SBA) Walk 10 feet: 4 (SBA) Walk 50 feet with two turns: 4 (SBA) Walk 150 feet: 4 (SBA) PT Personal Care Attendant Goals Personal Care Attendant Goals PT Personal Care Attendant Goals Time Frame: May 25, 2021 Roll Left & Right (QC): 6 Sit to Lying (QC): 6 Lying-Sitting on Side/Bed(QC): 6 Sit to Stand (QC): 6 Chair/Rbe-dp-Bvysg Xfer(QC): 6 Toilet Transfer (QC): 6 Car Transfer (QC): 6 Does the Patient Walk: Yes Walk 10 feet (QC): 6 Walk 50ft with 2 Turns (QC): 6 Walk 150 ft (QC): 6 Walking 10ft on Uneven Surface: 6 1 Step (curb) (QC): 4 (SBA) 4 Steps (QC): 4 (SBA) 12 Steps (QC): 4 (SBA) Picking up an Object (QC): 4 (SBA) Wheel 50 feet with 2 turns (QC: 9 Wheel 150 feet: 9 PT Plan Problem List Problem List: Activity Tolerance, Functional Strength, Safety, Balance, Gait, Transfer, Bed Mobility, ROM Treatment/Plan Treatment Plan: Continue Plan of Care Treatment Plan: Bed Mobility, Education, Functional Activity Liang, Functional Strength, Group Therapy, Gait, Safety, Therapeutic Exercise, Transfers Treatment Duration: May 25, 2021 Frequency: At least 5 of 7 days/Wk (IRF) Estimated Hrs Per Day: 1.5 hours per day Patient and/or Family Agrees t: Yes Safety Risks/Education Patient Education: Gait Training, Transfer Techniques, Steps, Correct Positioning, Safety Issues Teaching Recipient: Patient Teaching Methods: Demonstration, Discussion Response to Teaching: Reinforcement Needed Discharge Recommendations Plan Patient will perform bed mobility and transfer training, balance and endurance training, functional strengthening, stair training, gait training, and education, to improve functional mobility and independence at home. Therapy Discharge Recommendati: Home & Family, Post Acute PT Time/GCodes Time In: 1315 Time Out: 1455 Total Billed Treatment Time: 90 Total Billed Treatment 1 visit EVM 10' NM 30' FA 50' PT eval from [id number], OT eval from [id number], co-treat from [id number] ESMER LAWSON PT May 04, 2021 14:44
[2021-05-04] MEDS: DOCUSATE SODIUM 100 MG (COLACE) CAP PO SCH ×2 (15:39→20:23)
[2021-05-04] MEDS: polyethylene glycoL POWDER 17 GM (MIRALAX) PACK PO SCH ×2 (15:39→20:22)
[2021-05-04] MEDS: SENNA W/DOCUSATE (SENOKOT S) TABLET PO SCH ×2 (15:40→20:23)
--- NOTE | 2021-05-04 17:54 | PM&R Post Admission Assessment ---
PM&R HP Date of Visit: May 04, 2021 Time of Visit: 14:00 History of Present Illness CC: Debility from CVA HPI: 75 year old WF pt of Dr. Lopes with recurrent meningioma status post second resection on 04/29/21 at . With interventional radiology on 04/27/21 for pre-op embolization complicated by a thrombosis in the BETO. She is status post TPA with occlusion resolution. Pt has mild expressive aphasia and right vision loss. She has steroid induced hyperglycemia with vasogenic cerebral edema. She was previously independent without the use of an assisted device, currently she is walking 100 feet but needs help with ADLs. History and physical: Selena is a 75yo F referred to the rehabilitation unit from the [facility](). She was admitted to to have a repeat resection of a meningioma. On 04/27/21 she was having a preoperative intra-angiogram when she had a left BETO occlusion and MCA embolism. She had tPA done with complete perfusion achieved. After the cerebral infarction she had worsening expressive aphasia and a complete right facial droop. She had the resection of the meningioma done on 04/29/21 and it was successful without intraoperative complications. After her surgery she was meeting with PT/OT/ST to work on returning her to baseline activities. She had a high anion gap metabolic acidosis on 04/30/21. Due to impaired balance, fatigue, decreased activities of daily living, and moderately impaired written/verbal expression she was referred to the rehabilitation program. 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 No history of smoking, drinking, or illicit drug use. ROS- Patient says she can hear a squeaking sound in her head since her resection surgery. She finds it hard to concentrate during conversations because of the noise she is hearing. She says she feels fatigued and weak. She denies a headache, chest pain, palpitations, shortness of breath, dysuria, diarrhea, constipation, and vomiting. Exam- Patient was alert and eating a snack during the interview. She says the transport from [place] to [place] went well. CN 3-12 exam showed mild weakness of right facial muscles when smiling and raising eyebrows. 3/5 strength in the right arm with flexion and extension at the elbow with resistance. Bilateral lower extremities had 5/5 strength. Patient was oriented X3. Vitals- HR-78 RR-18 BP-142/76 Past Sxjlzhf-Dmnikz-Vhgkot Hx Past Med/Social Hx: Reviewed Nursing Past Med/Soc Hx, Reviewed and Corrections made Patient Social History Marrital Status: Employed/Student: retired Alcohol Use: Denies Use Smoking Status: Never a Smoker 2nd Hand Smoke Exposure: No Recent Hopitalizations: No Immunizations Up To Date Tetanus Booster (TDap): Unknown Date of Pneumonia Vaccine: Jan 10, 2016 Date of Influenza Vaccine: Jan 01, 2018 Seasonal Allergies Seasonal Allergies: Yes Past Medical History Currently Using CPAP: No Currently Using BIPAP: No Cardiac: High Cholesterol, Hypertension Neurological: Stroke Sexually Transmitted Disease: No HIV/AIDS: No Female Reproductive Disorders: Denies Gastrointestinal: Gastroesophageal Reflux, Chronic Constipation Musculoskeletal: Arthritis, Chronic Back Pain Loss of Vision: Denies Hearing Impairment: Denies Psychosocial: Anxiety, Depression History of Blood Disorders: No Adverse Reaction to Blood Shea: No (HAS HAD BLOOD WITH NO REACTION) Prior Level of Function Bed Mobility: 6 Transfers: 6 Gait: 6 Stairs: 6 Indoor Mobility (Ambulation): Independent Stairs: Independent Self Care: Independent Functional Cognition: Independent Current Level of Fuctioning Roll Left to Right: 6 Sit to Lyin Lying to Sitting/Side of Bed: 6 Sit to Stand: 4 Chair/Gmo-cz-Ixahq Xfer: 4 Car Transfer: 4 Does the Patient Walk: Yes Mode of Locomotion: Walk Anticipated Mode of Locomotion: Walk Walk 10 feet: 4 Walk 50 ft with 2 Turns: 4 Walk 150 ft: 4 Walking 10ft on uneven surface: 4 Gait Assistive Device: FWW Does the Pt Use a Wheelchair: No Wheel 50 ft with 2 turns: 9 Wheel 150 ft: 9 #of Steps: 4 1 Step (curb): 4 4 Steps: 4 12 Steps: 88 Picking up an Object: 4 (using supervising law enforcement analyst) Eatin (IND with breakfast per pt report.) Oral Hygiene: 7 Shower/Bathe Self: 7 Upper Body Dressin Lower Body Dressin On/Off Footwear: 7 Toileting Hygiene: 7 PM&R Allergy/Meds/Data Review Allergies Coded Allergies: clindamycin (Verified Allergy, Mild, RASH, 08/07/18) phenytoin (Verified Allergy, Mild, HIVES, 08/07/18) Home Medications Scheduled Acetaminophen (Tylenol Extra Strength), 1,000 MG PO Q6H, (Reported) Amlodipine Besylate (Amlodipine Besylate), 5 MG PO HS, (Reported) Aspirin (Aspirin EC), 81 MG PO DAILY, (Reported) Atorvastatin Calcium (Atorvastatin Calcium), 80 MG PO HS, (Reported) Cholecalciferol (Vitamin D3) (Vitamin D3), 100 MCG PO DAILY, (Reported) Dexamethasone (Dexamethasone), 4 MG PO Q12H, (Reported) Dexamethasone (Dexamethasone), 2 MG PO Q12H, (Reported) Escitalopram Oxalate (Escitalopram Oxalate), 20 MG PO HS, (Reported) Fluticasone Propionate (Flonase Allergy Relief), 1 SPRAY NSEACH HS, (Reported) Levetiracetam (Levetiracetam ER), 500 MG PO BID, (Reported) Loratadine (Loratadine), 10 MG PO DAILY, (Reported) Metoprolol Tartrate (Metoprolol Tartrate), 50 MG PO HS, (Reported) [place]-3S/Dha/Epa/Fish Oil (Sea-[place] 1,000 mg Softgel), 1 EACH PO DAILY, (Reported) Omeprazole (Omeprazole), 20 MG PO DAILY, (Reported) Triamcinolone Acet (Triamcinolone Acetonide 0.1% Cream), 1 APPLIC TP BID, (Reported) Ubidecarenone (Co Q-10), 100 MG PO DAILY, (Reported) Scheduled PRN Docusate Sodium (Colace), 100 MG PO DAILY PRN for CONSTIPATION-1ST LINE, (Reported) Famotidine/Ca Carb/Mag Hydrox (Tums Dual Action Tablet Chew), 1 EACH PO DAILY PRN for HEARTBURN, (Reported) Methocarbamol (Methocarbamol), 500 MG PO BID PRN for MUSCLE CRAMPS, (Reported) Oxycodone HCl (Roxicodone), 5-10 MG PO Q4H PRN for PAIN-SEVERE (8-10), (Reported) Sennosides/Docusate Sodium (Senna-S Tablet), 1 EACH PO BID PRN for CONSTIPATION- 6TH LINE, (Reported) Discontinued Medications Aspirin (Aspir 81), 81 MG PO DAILY, (Reported) Discontinued Reason: No Longer Taking Cholecalciferol (Vitamin D3) (Vitamin D3), 5,000 UNIT PO DAILY, (Reported) Discontinued Reason: No Longer Taking Docusate Sodium (Stool Softener), 100 MG PO DAILY, (Reported) Discontinued Reason: No Longer Taking Escitalopram Oxalate (Lexapro), 20 MG PO HS, (Reported) Discontinued Reason: No Longer Taking Fluticasone Propionate (Flonase Allergy Relief), 1 SPRAY NS DAILY, (Reported) Discontinued Reason: No Longer Taking Loratadine (Loratadine), 10 MG PO DAILY, (Reported) Discontinued Reason: No Longer Taking Metoprolol Succinate (Metoprolol Succinate), 50 MG PO DAILY, (Reported) Discontinued Reason: No Longer Taking [place] 3 Polyunsat Fatty Acids (Fish Oil 1,000 mg Capsule), 1,000 MG PO DAILY, ( Reported) Discontinued Reason: No Longer Taking Pantoprazole Sodium (Protonix), 40 MG PO DAILY Discontinued Reason: No Longer Taking Simvastatin (Simvastatin), 40 MG PO HS, (Reported) Discontinued Reason: No Longer Taking Triamcinolone Acet (Triamcinolone Acetonide 0.1% Cream), 15 GM TP PRN, (Reported) Discontinued Reason: No Longer Taking Ubidecarenone (Coq-10), PO DAILY, (Reported) Discontinued Reason: No Longer Taking Current Medications Current Medications Reviewed Review of Systems Constitutional: see HPI, malaise, weakness EENTM: blurred vision Respiratory: no symptoms reported Cardiovascular: no symptoms reported Gastrointestinal: no symptoms reported Genitourinary: no symptoms reported Musculoskeletal: back pain, joint pain Skin: no symptoms reported Psychiatric/Neurological: See HPI, Weakness All Other Systems Reviewed Negative Unless Noted: Yes Physical Exam Physical Exam Vital Signs Vital Signs - First Documented 05/04/21 14:00 Temp 36.2 Pulse 78 Resp 18 B/P (MAP) 142/76 (98) Pulse Ox 96 O2 Delivery Room Air Capillary Refill : Height, Weight, BMI Height: 5'4.00" Weight: 131lbs. 0.0oz. [id number]; 23.25 BMI Method: General Appearance: No Apparent Distress, WD/WN, Chronically ill Eyes: Bilateral Eye Normal Inspection, Bilateral Eye PERRL HEENT: PERRL/EOMI, Normal ENT Inspection, Pharynx Normal Neck: Full Range of Motion, Normal Inspection, Non Tender, Supple, Carotid Bruit Respiratory: Chest Non Tender, Lungs Clear, Normal Breath Sounds, No Accessory Muscle Use, No Respiratory Distress Cardiovascular: Regular Rate, Rhythm, No Edema, No Gallop, No JVD, No Murmur, Normal Peripheral Pulses Gastrointestinal: Normal Bowel Sounds, No Organomegaly, No Pulsatile Mass, Non Tender, Soft Back: Normal Inspection, No CVA Tenderness, No Vertebral Tenderness Extremity: Normal Capillary Refill, Normal Inspection, Normal Range of Motion, Non Tender, No Calf Tenderness, No Pedal Edema Neurologic/Psychiatric: Alert, Oriented x3, Abnormal Gait, Depressed Affect, Facial Droop (Right), Motor Weakness (Right-sided 3/5) Skin: Normal Color, Warm/Dry Lymphatic: No Adenopathy PM&R Medical Assessment & Plan REHAB/MEDICAL ASSESSMENT AND PLAN: REHAB IMPAIRMENT GROUP: CVA ETIOLOGIC DIAGNOSIS: CVA The comorbidities that impact the patients function and/or functional outcome by: Advanced age, severity of weakness, status post craniotomy REHAB PLAN: The patient is being admitted to our comprehensive inpatient rehabilitation facility and can tolerate the intensity of service consisting of at least: 180 minutes of therapy a day, 5 out of 7 days a week Rehab treatment will consist of: PT and OT will focus on use of assistive devices due to right upper extremity weakness and speech therapy will work on cognitive processes The patient/family has a good understanding of our discharge process and will benefit from an interdisciplinary inpatient rehabilitation program. The patient has potential to make improvement and is in need of at least two of the following multidisciplinary therapies including but not limited to physical, occupational, speech, and prosthetics and orthotics. Additionally the patient will need services from respiratory, nutritional services, wound care, psychology, etc. (Customize this to each patient). Given the patients complex condition and risk of further medical complications, rehabilitation services cannot be safely or effectively provided at a lower level of care such as a custodial facility. BARRIERS TO DISCHARGE: Severity weakness ESTIMATED LOS: 10 days DISPOSITION: Home RELEVANT CHANGES SINCE PREADMISSION SCREENING: I have compared the patients medical and functional status at the time of the preadmission screening and there are: PROGNOSIS: Good REHABILITATION GOALS: 1. PT and OT will focus on use of assistive devices due to right upper extremity weakness and speech therapy will work on cognitive processes All the above goals were reviewed with the patient and he/she is in agreement. By signing this document, I acknowledge that I have personally performed a full physical examination on this patient within 24 hours of admission to this inpatient rehabilitation facility and have determined the patient to be able to tolerate the above course of treatment at an intensive level for a reasonable period of time. I will be completing a detailed individualized Plan of Care for this patient by day #4 of the patients stay based upon the Preadmission Screen, the Post-Admission Evaluation, and the therapy evaluations. Admission Dx/Comorbidities: (1) Hypertension ICD Codes: I10 - Essential (primary) hypertension (2) Right arm weakness ICD Codes: R29.898 - Other symptoms and signs involving the musculoskeletal system (3) Facial droop ICD Codes: R29.810 - Facial weakness (4) S/P craniotomy ICD Codes: Z98.890 - Other specified postprocedural states (5) CVA (cerebral vascular accident) ICD Codes: I63.9 - Cerebral infarction, unspecified (6) GERD (gastroesophageal reflux disease) ICD Codes: K21.9 - Gastro-esophageal reflux disease without esophagitis Assessment/Plan Assessment and Plan Assess & Plan/Chief Complaint Assessment: CVA with right-sided weakness Right facial droop Hypertension Hyperlipidemia Depression Anxiety Status post craniotomy Plan: Restart home meds and [facility] meds Aggressive rehab Supportive care MASOOD MARTÍNEZ DO May 04, 2021 17:54
[2021-05-04] MEDS ORDERED: FAMOTIDINE PO PRN (18:00)
[2021-05-04] MEDS ORDERED: MAG HYDROX PO PRN (18:00)
[2021-05-04] MEDS ORDERED: METHOCARBAMOL 500 MG (ROBAXIN) TABLET PO PRN (18:00)
[2021-05-04] MEDS ORDERED: CA CARB PO PRN (18:00)
[2021-05-04] MEDS ORDERED: SENNA W/DOCUSATE (SENOKOT S) TABLET PO PRN (18:00)
[2021-05-04] MEDS ORDERED: [UNRECOGNIZED DRUG - OTHER] PO PRN (18:00)
[2021-05-04] MEDS ORDERED: DOCUSATE SODIUM 100 MG (COLACE) CAP PO PRN (18:00)
[2021-05-04] MEDS ORDERED: CALCIUM CARBONATE 500 MG (TUMS) TAB.CHEW FEEDING PRN (18:15)
[2021-05-04 20:00] VITALS: BP 173/74
[2021-05-04] MEDS: meTOprolol TARTRATE 50 MG (LOPRESSOR) TAB PO SCH (20:22)
[2021-05-04] MEDS: FLUTICASONE NASAL SPRAY (FLONASE) 16 GM BTL NS SCH (20:22)
[2021-05-04] MEDS: amLODIPine 5 MG (NORVASC) TAB PO SCH (20:22)
[2021-05-04] MEDS: TRIAMCINOLONE 0.1% CR (KENALOG) 15 GM TUBE TP SCH (20:24)
[2021-05-04] MEDS ORDERED: NON-FORMULARY MEDICATION 1 EA EA (Escitalopram Oxalate 20 MG) PO SCH (21:00)
[2021-05-04] MEDS ORDERED: NON-FORMULARY MEDICATION 1 EA EA (Fluticasone Propionate (Flonase Allergy Relief) 1 SPRAY) NSEACH SCH (21:00)
[2021-05-05 05:58] LABS: BASOPHILS % (AUTO) 0 % (0-10); EOSINOPHILS % (AUTO) 0 % (0-10); HEMATOCRIT 28 % (35-52); HEMOGLOBIN 8.8 g/dL (11.5-16.0); LYMPHOCYTES # (AUTO) 2.3 10^3/uL (1.0-4.0); LYMPHOCYTES % (AUTO) 14 % (12-44); MEAN CORPUSCULAR HEMOGLOBIN 28 pg (25-34); MEAN CORPUSCULAR HGB CONC 31 g/dL (32-36); MEAN CORPUSCULAR VOLUME 89 fL (80-99); MEAN PLATELET VOLUME 12.6 fL (9.0-12.2); MONOCYTES # (AUTO) 1.4 10^3/uL (0.0-1.0); MONOCYTES % (AUTO) 9 % (0-12); NEUTROPHILS # (AUTO) 11.6 10^3/uL (1.8-7.8); NEUTROPHILS % (AUTO) 73 % (42-75); PLATELET COUNT 416 10^3/uL (130-400); WHITE BLOOD COUNT 15.9 10^3/uL (4.3-11.0)
[2021-05-05 06:12] LABS: ALBUMIN 3.7 GM/DL (3.2-4.5); POTASSIUM 3.9 MMOL/L (3.6-5.0)
[2021-05-05 06:13] LABS: CALCIUM 8.3 MG/DL (8.5-10.1)
[2021-05-05 06:14] LABS: TOTAL PROTEIN 6.7 GM/DL (6.4-8.2)
[2021-05-05 06:16] LABS: BILIRUBIN,TOTAL 0.6 MG/DL (0.1-1.0)
[2021-05-05 06:19] LABS: CREATININE SERUM 0.65 MG/DL (0.60-1.30)
[2021-05-05 06:20] LABS: BAND NEUTROPHILS 3 %; BASOPHILS % (MANUAL) 0 %; EOSINOPHILS % (MANUAL) 0 %; LYMPHOCYTES % (MANUAL) 13 %; METAMYELOCYTES % 2 %; MONOCYTES % (MANUAL) 8 %; NEUTROPHILS % (MANUAL) 70 %; NUCLEATED RED BLOOD CELLS 4; REACTIVE LYMPHOCYTES 4 %
[2021-05-05 06:21] LABS: ANISOCYTOSIS SLIGHT; POLYCHROMASIA SLIGHT
--- NOTE | 2021-05-05 06:50 | Individualized Plan of Care ---
Individualized Plan of Care Rehab Nursing IPOC Order Admission Date May 04, 2021 at 13:17 Current Orders Orders Admission Order(Inpt,Obs,Sdc) (05/04/21 08:49) Michele Scales (05/04/21 08:49) Sequential Compression Device (05/04/21 08:49) Vp Organizational Development-Inpt Rehab Con (05/04/21 08:49) Rehab Nursing Orders-Ipoc (05/04/21 08:49) Physical Therapy Rehab Orders (05/04/21 08:49) Occupational Therapy Rehab Ord (05/04/21 08:49) Speech Therapy Rehab Orders (05/04/21 08:49) Cbc With Automated Diff (05/05/21 06:00) Comprehensive Metabolic Panel (05/05/21 06:00) Precautions (Aru) (05/04/21 08:49) Weekly Weight WEEK (05/04/21 08:49) Rehab-Intensity Of Therapy (05/04/21 08:49) Alprazolam Tablet (Xanax Tablet) (05/04/21 09:00) Calcium Carbonate Chew Tablet (Antacid C (05/04/21 09:00) Diphenhydramine Tablet (Benadryl Tablet) (05/04/21 09:00) Docusate Sodium Capsule (Colace Capsule) (05/04/21 09:00) Docusate Sodium Capsule (Colace Capsule) (05/04/21 09:00) Bisacodyl Suppository (Dulcolax Supposit (05/04/21 09:00) Lactulose Oral Solution (Enulose Oral So (05/04/21 09:00) Na Phos/Na Biphos Enema (Fleet Enema Jamari (05/04/21 09:00) Guaifenesin/Codeine Syrup (Robitussin Ac (05/04/21 09:00) Loperamide Tablet (Imodium Tablet) (05/04/21 09:00) Melatonin Tablet (Melatonin Tablet) (05/04/21 09:00) Polyethylene Glycol Powder Pkt (Miralax (05/04/21 09:00) Ondansetron Oral Dissolve Tab (Zofran (05/04/21 09:00) Senna S Tablet (Senokot S Tablet) (05/04/21 09:00) Acetaminophen Tablet/Caplet (Tylenol T (05/04/21 09:00) Code/Resuscitation (05/04/21 08:49) Sequential Compression Device ONCE (05/04/21 08:49) Initiate Admission Nursing Pro .admission (05/04/21 08:49) Admission Arrival Bed Request (05/04/21 13:17) General/Regular (05/04/21 Lunch) Transfer - Bed/Room/Location (05/04/21 13:15) Patient Visit (05/04/21 ) Pt Eval Moderate Complexity (05/04/21 ) Ex Neuromuscular, Ea 15 Min (05/04/21 ) Functional Activities, Ea 15 (05/04/21 ) Amlodipine Tablet (Norvasc Tablet) (05/04/21 21:00) Aspirin Enteric Coated Tablet (Ecotrin T (05/05/21 09:00) Atorvastatin Tablet (Lipitor Tablet) (05/04/21 21:00) Cholecalciferol Capsule/Tablet (Vitamin (05/05/21 09:00) Dexamethasone Tablet (Decadron Tablet) (05/04/21 18:00) Docusate Sodium Capsule (Colace Capsule) (05/04/21 18:00) Loratadine Tablet (Claritin Tablet) (05/05/21 09:00) Methocarbamol Tablet (Robaxin Tablet) (05/04/21 18:00) Metoprolol Tartrate (Ir) Tab (Lopressor (05/04/21 21:00) Omeprazole (Non-Formulary) (Prilosec (No (05/05/21 09:00) Oxycodone Immediate Rel Tablet (Oxyir Ta (05/04/21 18:00) Senna S Tablet (Senokot S Tablet) (05/04/21 18:00) Triamcinolone 0.1% Cream 15 Gm (Kenalog (05/04/21 21:00) (Nf) Escitalopram Oxalate (05/04/21 21:00) (Nf) Famotidine/Ca Carb/Mag Hydrox (Tums (05/04/21 18:00) (Nf) Fluticasone Propionate (Flonase All (05/04/21 21:00) (Nf) Levetiracetam (Levetiracetam Er) (05/04/21 21:00) (Nf) Reading-3s/Dha/Epa/Fish Oil (Sea-Omeg (05/05/21 09:00) (Nf) Ubidecarenone (Co Q-10) (05/05/21 09:00) Reading 3 Capsule (Fish Oil Capsule) (05/05/21 09:00) Pantoprazole Tablet (Protonix Tablet) (05/05/21 09:00) Citalopram Tablet (Celexa Tablet) (05/04/21 21:00) Fluticasone Nasal [place] (Flonase Nasal S (05/04/21 21:00) Famotidine Tablet (Pepcid Tablet) (05/04/21 18:15) Calcium Carbonate Chew Tablet (Antacid C (05/04/21 18:15) Levetiracetam Tablet (Keppra Tablet) (05/04/21 21:00) Manual Differential (05/05/21 05:23) Calcium Carbonate Chew Tablet (Antacid C (05/05/21 07:15) Patient May Use Own Med,Single (Patient (05/05/21 11:00) Patient Visit (05/05/21 ) Speech Sound Lang Comp (05/05/21 ) Treat. Speech/Lang/Voice (05/05/21 ) Patient Visit (05/05/21 ) Exercise Therap, Ea 15 Min (05/05/21 ) Gait Training, Ea 15 Min (05/05/21 ) Ex Neuromuscular, Ea 15 Min (05/05/21 ) Rehab Nursing Orders: Ongoing Assess. of Cognitive Status, Ongoing Assess. of Function Status, Bladder Management, Bladder Scan, Bladder Training, Bowel Management, Bowel Training, Disease Management & Educaiton, DVT Prophylaxis, Fall Prevention, Fluid/Electrolyte/Nutrition Mgmt, Infection Prevention, Medication Management & Education, Management of Risks & Complications, Management of Skin Intergrity, Nutrition Management, Pain Management, Patient/Family Support, Safety Management, Wound Management Intensity of Therapy to be met Patient to be seen: Min.3h per day/5 of 7d PT IPOC Problem List: Activity Tolerance, Functional Strength, Safety, Balance, Gait, Transfer, Bed Mobility, ROM Treatment Plan: Continue Plan of Care Bed Mobility, Education, Functional Activity Liang, Functional Strength, Group Therapy, Gait, Safety, Therapeutic Exercise, Transfers Treatment Duration: May 25, 2021 Frequency: At least 5 of 7 days/Wk (IRF) Estimated Hrs Per Day: 1.5 hours per day OT IPOC Problems: Decreased Activ Tolerance, Decreased UE Strength, Impaired Funct Balance, Impaired I ADL's, Impaired Self-Care Skills OT Treatment, Training and Edu: Yes Plan of Care: ADL Retraining, Functional Mobility, Group Exercise/Act as Ind, UE Funct Exercise/Act Treatment Duration: May 28, 2021 Frequency: At least 5 of 7 days/Wk (IRF) Estimated Hrs Per Day: 1.[address] IPOC Speech Therapy Treatment Plan: Continue Plan of Care Treatment Duration: May 05, 2021 Frequency: 5 times per week Estimated Hrs Per Day: Other Vp Organizational Development/Case Mgmt Vp Organizational Development/Case Managemen: Discharge Planning Dietitian/Title Officer Dietitian/Title Officer to monitor nutritional status and make changes and/or recommendations as needed and work with speech pathology on dietary upgrades as the occur. Physician IPOC Medical Issues being managed closely and that require the 24 hour availability of a physician: Reason neurosurgery with craniotomy along with steroid administration and elevated liver enzymes will require close monitoring for any decline in decompensation risk Medical Issues: Bowel/Bladder Function, DVT Prophylaxis, Falls Precautions, Fluid/Electrolyte/Nutrition Balance, Infection Protection, Pain Management, Wound Care Brief Synthesis of Preadmission Screen, Post-Admission Evaluation, and Therapy Evaluations: PT and OT will focus on regaining function of right arm with the use of assistive devices in order to regain enough function to go home to live indepen dently Medical Prognosis: Good Anticipated Length of Stay: 7 days MASOOD MARTÍNEZ DO May 05, 2021 06:50
--- NOTE | 2021-05-05 06:50 | PM&R Progress Note ---
Subjective HPI/CC On Admission Date Seen by Provider: May 05, 2021 Time Seen by Provider: 11:00 Subjective/Events-last exam 05/05/2021: Pt is doing very well Working on stationary bike Checked meds and labs Hemoglobin was 8.8 [place] [address] on steroids Checked bp Overall feels really good Review of Systems General: Fatigue, Malaise Neurological: Weakness Objective Exam Vital Signs Vital Signs Date Time Temp Pulse Resp B/P (MAP) Pulse Ox O2 Delivery O2 Flow Rate FiO2 05/05/21 20:27 99 Room Air 05/05/21 20:24 36.6 68 18 176/80 (112) Capillary Refill : General Appearance: No Apparent Distress, WD/WN, Chronically ill HEENT: PERRL/EOMI, Normal ENT Inspection, Pharynx Normal Neck: Full Range of Motion, Normal Inspection, Non Tender, Supple, Carotid Bruit Respiratory: Chest Non Tender, Lungs Clear, Normal Breath Sounds, No Accessory Muscle Use, No Respiratory Distress Cardiovascular: Regular Rate, Rhythm, No Edema, No Gallop, No JVD, No Murmur, Normal Peripheral Pulses Gastrointestinal: Normal Bowel Sounds, No Organomegaly, No Pulsatile Mass, Non Tender, Soft Back: Normal Inspection, No CVA Tenderness, No Vertebral Tenderness Extremity: Normal Capillary Refill, Normal Inspection, Normal Range of Motion, Non Tender, No Calf Tenderness, No Pedal Edema Neurologic/Psychiatric: Alert, Oriented x3, Abnormal Gait, Depressed Affect, Facial Droop (Right), Motor Weakness (Right-sided 3/5) Skin: Normal Color, Warm/Dry Lymphatic: No Adenopathy Results/Procedures Lab Laboratory Tests 05/05/21 05:23 Patient resulted labs reviewed. FIM Transfers Therapy Code Descriptions/Definitions Functional [place] Measure: 0=Not Assessed/NA 4=Minimal Assistance 1=Total Assistance 5=Supervision or Setup 2=Maximal Assistance 6=Modified [place] 3=Moderate Assistance 7=Complete IndependenceSCALE: Activities may be completed with or without assistive devices. 9-Ddamtonezw-mjsyise completes the activity by him/herself with no assistance from a helper. 5-Set-up or Clean-up Assistance-helper sets up or cleans up; patient completes activity. [place] assists only prior to or following the activity. 4-Supervision or Touching Assistance-helper provides verbal cues and/or touching/steadying and/or contact guard assistance as patient completes activity. Assistance may be provided throughout the activity or intermittently. 3-Partial/Moderate Assistance-helper does LESS THAN HALF the effort. [place] lifts, holds or supports trunk or limbs, but provides less than half the effort. 2-Substantial/Maximal Assistance-helper does MORE THAN HALF the effort. [place] lifts or holds trunk or limbs and provides more than half the effort. 1-Gyytjkydt-ifiyci does ALL the effort. Patient does none of the effort to complete the activity. Or, the assistance of 2 or more helpers is required for the patient to complete the activity. If activity was not attempted, code reason: 7-Patient Refused. 9-Not Applicable-not attempted and the patient did not perform the activity before the current illness, exacerbation or injury. 10-Not Attempted due to Environmental Limitations-(lack of equipment, weather restraints, etc.). 88-Not Attempted due to Medical Conditions or Safety Concerns. Roll Left to Right (QC): 6 Sit to Lying (QC): 6 Sit to Stand (QC): 4 Chair/Tqe-qf-Xzcht Xfer(QC): 4 Car Transfer (QC): 4 Gait Training Does the Patient Walk?: Yes Walk 10 feet (QC): 4 Walk 50 ft with 2 Turns(QC): 4 Walk 150 ft (QC): 4 Walking 10ft/uneven surface-QC: 4 Gait Assistive Device: FWW Wheelchair Training Does the Pt Use a Wheelchair?: No Wheel 50 ft with 2 turns (QC): 9 Wheel 150 ft (QC): 9 Stair Training #of Steps: 4 1 Step (curb) (QC): 4 4 Steps (QC): 4 12 Steps (QC): 88 Balance Picking up an Object (QC): 4 (using gallery manager) ADL-Treatment Eating (QC): 6 (IND with breakfast per pt report.) Oral Hygiene (QC): 7 Shower/Bathe Self (QC): 7 Upper Body Dressing (QC): 7 Lower Body Dressing (QC): 7 On/Off Footwear (QC): 7 Toileting Hygiene (QC): 7 Assessment/Plan Assessment and Plan Assess & Plan/Chief Complaint Assessment: CVA with right-sided weakness Right facial droop Hypertension Hyperlipidemia Depression Anxiety Status post craniotomy Anemia Leukocytosis from steroids Elevated liver enzymes Elevated platelet count Plan: Restart home meds and [facility] meds Aggressive rehab Supportive care 05/05/2021: Pain control Aggressive rehab (1) Hypertension (2) Right arm weakness (3) Facial droop (4) S/P craniotomy (5) CVA (cerebral vascular accident) (6) GERD (gastroesophageal reflux disease) MASOOD MARTÍNEZ DO May 05, 2021 06:50
[2021-05-05 07:10] VITALS: BP 166/76
[2021-05-05] MEDS ORDERED: CALCIUM CARBONATE 500 MG (TUMS) TAB.CHEW FEEDING PRN (07:15)
[2021-05-05] MEDS: SENNA W/DOCUSATE (SENOKOT S) TABLET PO SCH ×2 (08:51→20:15)
[2021-05-05] MEDS: LORATADINE (CLARITIN) 10 MG TAB PO SCH (08:51)
[2021-05-05] MEDS: DOCUSATE SODIUM 100 MG (COLACE) CAP PO SCH ×2 (08:51→20:15)
[2021-05-05] MEDS: OMEGA 3 (FISH OIL) 1000 MG CAP PO SCH (08:51)
[2021-05-05] MEDS: PANTOPRAZOLE 20 MG TABLET (PROTONIX) PO SCH (08:51)
[2021-05-05] MEDS: ASPIRIN E.C. 81 MG (ECOTRIN) TAB PO SCH (08:51)
[2021-05-05] MEDS: VITAMIN D3 25 MCG (1,000 UNITS) TABLET PO SCH (08:54)
[2021-05-05] MEDS: polyethylene glycoL POWDER 17 GM (MIRALAX) PACK PO SCH ×2 (08:56→20:15)
[2021-05-05] MEDS: TRIAMCINOLONE 0.1% CR (KENALOG) 15 GM TUBE TP SCH ×2 (08:56→20:15)
[2021-05-05] MEDS ORDERED: EPA PO SCH (09:00)
[2021-05-05] MEDS ORDERED: FISH OIL PO SCH (09:00)
[2021-05-05] MEDS ORDERED: OMEGA PO SCH (09:00)
[2021-05-05] MEDS ORDERED: NON-FORMULARY MEDICATION 1 EA EA (Ubidecarenone (Co Q-10) 100 MG) PO SCH (09:00)
[2021-05-05] MEDS ORDERED: [UNRECOGNIZED DRUG - OTHER] PO SCH (09:00)
[2021-05-05] MEDS ORDERED: DHA PO SCH (09:00)
[2021-05-05] MEDS ORDERED: OMEPRAZOLE 20 MG (PriLOSEC) CAP NON-FORMULARY PO SCH (09:00)
--- NOTE | 2021-05-05 09:10 | Occupational Ther Daily Note ---
OT Current Status-Daily Note Subjective Pt alert, sitting in recliner when OT entered. Pt agreed to therapy. Pt stated she was feeling crummy this morning. Mental Status/Objective Patient Orientation: Person, Place, Time, Situation Attachments: IV ADL-Treatment Pt agreed to complete shower. Pt sit-stand from recliner to FWW with CGA. Pt ambulated to bathroom using FWW and transferred to toilet with CGA. Pt completed toilet hygiene with close supervision. Pt transferred to shower bench. While standing, pt doffed LB dressing. Pt threaded BLE out of LB dressing by using figure 4 technique. Pt became unstable when threading LLE over R leg due to decreased dynamic sitting balance. Pt was able to quickly regain balance. Pt was able to cleanse/dry UB, chest, abdomen, upper LB and LB, buttocks, and jonn area. Pt required shower bench, grab bars, hand held shower head to complete shower safely. Pt SPT from shower bench to chair. Pt required min A to don UB dressing due to stitches on head. After set up, pt able to don footwear using figure 4 technique. Pt required min A to thread LLE through LB dressing. Pt sit stand from chair to FWW to hike LB dressing with CGA. Pt ambulated to bathroom sink using FWW and completed oral hygiene while standing with CGA. After session, pt sitting in recliner. All needs met and call light in reach. Therapy Code Descriptions/Definitions Functional [place] Measure: 0=Not Assessed/NA 4=Minimal Assistance 1=Total Assistance 5=Supervision or Setup 2=Maximal Assistance 6=Modified [place] 3=Moderate Assistance 7=Complete IndependenceSCALE: Activities may be completed with or without assistive devices. 8-Jggrvnihdd-nyrhqom completes the activity by him/herself with no assistance from a helper. 5-Set-up or Clean-up Assistance-helper sets up or cleans up; patient completes activity. [place] assists only prior to or following the activity. 4-Supervision or Touching Assistance-helper provides verbal cues and/or touching/steadying and/or contact guard assistance as patient completes activity. Assistance may be provided throughout the activity or intermittently. 3-Partial/Moderate Assistance-helper does LESS THAN HALF the effort. [place] lifts, holds or supports trunk or limbs, but provides less than half the effort. 2-Substantial/Maximal Assistance-helper does MORE THAN HALF the effort. [place] lifts or holds trunk or limbs and provides more than half the effort. 8-Etzdsqhui-njmewg does ALL the effort. Patient does none of the effort to complete the activity. Or, the assistance of 2 or more helpers is required for the patient to complete the activity. If activity was not attempted, code reason: 7-Patient Refused. 9-Not Applicable-not attempted and the patient did not perform the activity before the current illness, exacerbation or injury. 10-Not Attempted due to Environmental Limitations-(lack of equipment, weather restraints, etc.). 88-Not Attempted due to Medical Conditions or Safety Concerns. Oral Hygiene (QC): 4 Bathing Location: L Arm, R Arm, L Upper Leg, R Upper Leg, L Lower Leg (including foot), R Lower Leg (including foot), Chest, Abdomen, Buttocks, Perineal Area Shower/Bathe Self (QC): 4 (Pt required CGA when cleansing buttocks in standing.) Upper Body Dressing (QC): 3 Lower Body Dressing (QC): 3 On/Off Footwear: 5 Toileting Hygiene (QC): 4 Toilet Transfer (QC): 4 Throughout treatment, pt required frequent resting breaks to catch breath. Pt r equired demonstration of pursed lip breathing. Education OT Patient Education: Correct positioning, Modified ADL techniques, Purpose of tx/functional activities, Transfer techniques Teaching Recipient: Patient Teaching Methods: Demonstration, Discussion Response to Teaching: Verbalize Understanding, Return Demonstration OT Short Term Goals Short Term Goals Time Frame: May 12, 2021 Toileting hygiene: 4 Upper body dressin Lower body dressin OT [facility] Goals Forepart Rounder Goals Time Frame: May 28, 2021 Eating (QC): 6 Oral Hygiene (QC): 6 Toileting Hygiene (QC): 6 Shower/Bathe Self (QC): 6 Upper Body Dressing (QC): 6 Lower Body Dressing (QC): 6 On/Off Footwear (QC): 6 Additional Goals: 1-Demonstrate ADL Tasks, 2-Verbalize Understanding, 3- ImproveStrength/Liang 1=Demonstrate adherence to instructed precautions during ADL tasks. 2=Patient will verbalize/demonstrate understanding of assistive devices/modifications for ADL. 3=Patient will improve strength/tolerance for activity to enable patient to perform ADL's. OT Education/Plan Problem List/Assessment Assessment: Decreased Activ Tolerance, Decreased Safety Aware, Impaired Coordination, Impaired Funct Balance, Impaired I ADL's, Impaired Self-Care Skills Discharge Recommendations Plan/Recommendations: Continue POC Treatment Plan/Plan of Care Patient would benefit from OT for education, treatment and training to promote independence in ADL's, mobility, safety and/or upper extremity function for ADL's. Plan of Care: ADL Retraining, Functional Mobility, Group Exercise/Act as Ind, UE Funct Exercise/Act Treatment Duration: May 28, 2021 Frequency: At least 5 of 7 days/Wk (IRF) Estimated Hrs Per Day: 1.5 hours per day Agreement: Yes Rehab Potential: Fair Time/GCodes Start Time: 08:00 Stop Time: 09:15 Total Time Billed (hr/min): 75 Billed Treatment Time 1 visit- ADL 5 ( 75 mins) NERY FELIX May 05, 2021 09:10
[2021-05-05] MEDS ORDERED: PATIENT MAY USE OWN MED,SINGLE MED PO SCH (11:00)
[2021-05-05] MEDS: LEVETIRACETAM 500 MG PO SCH ×3 (11:24→20:16)
--- NOTE | 2021-05-05 11:27 | ST Cognitive Linguistic Eval ---
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 Karley Simon Reason for Referral: Evaluation/Treatment Medical History Pertinent Medical History: Arthritis, GERD, HTN Current History The patient is a 75 year-old female, who was referred to the rehabilitation unit from the [facility] (). She was admitted to to have a repeat resection of a meningioma. On 04/27/21 she was having a preoperative intra-angiogram when she had a left BETO occlusion and MCA embolism. She had tPA done with complete perfusion achieved. After the cerebral infarction she had worsening expressive aphasia and a complete right facial droop. She had the resection of the meningioma done on 04/29/21 and it was successful without intraoperative complications. After her surgery she was meeting with PT/OT/ST to work on returning her to baseline activities. She had a high anion gap metabolic acidosis on 04/30/21. Due to impaired balance, fatigue, decreased activities of daily living, and moderately impaired written/verbal expression she was referred to the rehabilitation program. Past medical history- Expressive aphasia, Adies pupil, cerebral infarct, right homonymous hemianopia, hypertension, meningioma, GERD, hyperlipidemia, hiatal hernia, arthritis, restless leg syndrome, obstructive sleep apnea on CPAP, history of blood transfusions Reviewed History: Yes Social History Current Living Status: Spouse Speech PLF-Current Status Prior Level of Function Prior to hospitalization, the patient was independent with ADL's. Subjective The patient was seated upright in her recliner upon entrance to the room. The patient greeted the clinician appropriately and was agreeable to participation in the cognitive linguistic evaluation. Prior to the evaluation, the patient denied concerns or difficulties with her speech, language, cognition, or swallowing. Language Eval: Auditory Comprehends Simple Yes/No Ques: Functional Indent/Objects Multiple [place]: Functional Ident/Pics in Multiple [place]: Functional Follows 1-Step Commands: Functional Follows Complex Directions: Functional Follows General Conversations: Functional Language Eval: Verbal Language Completes Spontaneous Greeting: Functional Produces Auto, Serial Info: Functional Imitates Simple Words/Phrases: Functional Word Finding: Moderate Requests Basic Needs: Functional States Basic Personal Info: Functional Expresses Complex Ideas: Mild Language Evaluation: Writing Writes to Simple Dictation: Mild (Per patient, writing is difficult due to her right visual impairment.) Cognitive Patient Orientation The patient is independently oriented to self, location, city, month, day of week, date, and year. Objective Cognitive Domain Attention: Mild Memory: Mild Problem Solving: Mild Executive Functions: Mild Visuospatial Skills: Moderate Clock Drawing Severity Rating: Mild Objective Formal/Standardized Tests [facility] Results The patient displayed a result of +13/30 on the SLUMS correlating to a result of "dementia." Oral Motor/Speech Production The patient did not display dysarthria or apraxia of speech on this date. The patient remained 100% intelligible in known and unknown contexts. Impression The patient displayed moderate expressive aphasia on this date, most notably in the area of word-finding. While the patient did display a +13/30 on the SLUMS, the clinician believes the score was negatively impacted by the patient's language impairment rather than a true severe cognitive deficit. The patient displayed difficulties in the areas of attention, executive function, word- finding, and memory. The patient reported fatigue on two occasions throughout the session, therefore, two to five minute cognitive breaks were provided. Speech Patient Assess Expression of Ideas/Wants: Exhibits (3) Understanding Verbal Content: Understands (4) Brief Interview-Mental Status: Yes Repetition of Three Words: Three (3) Temporal Orientation: Year: Correct (3) Temporal Orientation: Month: Accurate within 5 days(2) Temporal Orientation: Day: Correct (1) Recall : Wear to say "Sock": Yes, no cue required (2) Recall : Color: Yes, no cue required (2) Recall : Bed: Yes, no cue required (2) Memory/Recall Ability: Current season, That he or she is in a hsp/hsp unit Speech Short Term Goals Short Term Goals Short Term Goals 1. The patient will demonstrate word-finding strategies with 90% accuracy, independently. 2. The patient will demonstrate 90% accuracy with executive function tasks, independently. Speech Technical Clerk Goals Technical Clerk Goals 1. The patient will demonstrate increased functional language and cognition for safe discharge to the least restricted environment. Speech-Plan Treatment Plan Speech Therapy Treatment Plan: Continue Plan of Care Frequency: 4 times per week (Four to five.) Estimated Hrs Per Day: .5 hour per day Rehab Potential: Fair Pt/Family Agrees to Plan: Yes Safety Risks/Education Teaching Recipient: Patient Teaching Methods: Discussion Response to Teaching: Verbalize Understanding Education Topics Provided: Plan of care, Goals of Speech Pathology Time Speech Therapy Time In: 09:15 Speech Therapy Time Out: 09:45 Total Billed Time: 30 Billed Treatment Time 1, MIKA GIVENS [facility] ST May 05, 2021 11:27
--- NOTE | 2021-05-05 12:16 | Physical Therapy Daily Note ---
PT Daily Note-Current Subjective Pt. agrees to Rx, shares that she is overwhelmed and a bit depressed. "My is older than me, he needs my help, he is diabetic, there is no money, my daughter really only comes for holidays" Pt. states she is having joint pain that she had had previously "come back" Pt. c/o pain in her knees and hands at 4/10 with activity Pain Numeric Pain Scale: 4 Location: Left (and rigt ) Location Body Site: Knee Pain Description: Ache Mental Status Patient Orientation: Normal For Age Transfers SCALE: Activities may be completed with or without assistive devices. 5-Rhienwvyuj-kranfgv completes the activity by him/herself with no assistance from a helper. 5-Set-up or Clean-up Assistance-helper sets up or cleans up; patient completes activity. [place] assists only prior to or following the activity. 4-Supervision or Touching Assistance-helper provides verbal cues and/or touching/steadying and/or contact guard assistance as patient completes activity. Assistance may be provided throughout the activity or intermittently. 3-Partial/Moderate Assistance-helper does LESS THAN HALF the effort. [place] lifts, holds or supports trunk or limbs, but provides less than half the effort. 2-Substantial/Maximal Assistance-helper does MORE THAN HALF the effort. [place] lifts or holds trunk or limbs and provides more than half the effort. 9-Uhixhrwpv-dhbdmq does ALL the effort. Patient does none of the effort to complete the activity. Or, the assistance of 2 or more helpers is required for the patient to complete the activity. If activity was not attempted, code reason: 7-Patient Refused. 9-Not Applicable-not attempted and the patient did not perform the activity before the current illness, exacerbation or injury. 10-Not Attempted due to Environmental Limitations-(lack of equipment, weather restraints, etc.). 88-Not Attempted due to Medical Conditions or Safety Concerns. Roll Left & Right (QC): 6 Sit to Lying (QC): 6 Lying to Sitting/Side of Bed(Q: 6 Sit to Stand (QC): 6 Chair/Yvj-oh-Wpjky Xfer(QC): 6 Gait Training Does the Patient Walk?: Yes Walk 10 feet (QC): 5 Walk 50 ft with 2 Turns(QC): 5 Walk 150 ft (QC): 5 Gait Persons Needed: 1 Gait Assistive Device: FWW pt. needs lead to destination, states her right leg "just isnt doing what I ask" no LOB, no incident Exercises Supine Ex: Bridging, Ankle pumps, Rolling, Heel Slides, Straight leg raise, Hip abd/add (sidelying) Supine Reps: 12 Seated Therapy Exercises: Ankle pumps, Sit to stand, Long arc quads, Hip flexion, Hip abd/add Seated Reps: 12 Standing: Hip Abduction, Hamstring curls, Heel/toe raises, Marching Standing Reps: 12 NuStep Minutes: 8 NuStep Workload: 1 Treatments LE ex seated, supine and in standing, Nustep, gait with FWW, pt. fatigues quickly, needs rests Assessment Current Status: Good Progress PT Short Term Goals Short Term Goals Time Frame: May 11, 2021 Roll Left & Right: 6 Sit to lyin Lying to sitting on side of be: 6 Sit to stand: 4 (SBA) Chair/vqe-tb-iyxot transfer: 4 (SBA) Walk 10 feet: 4 (SBA) Walk 50 feet with two turns: 4 (SBA) Walk 150 feet: 4 (SBA) PT Welder Railcar Mechanic Goals Welder Railcar Mechanic Goals PT Welder Railcar Mechanic Goals Time Frame: May 25, 2021 Roll Left & Right (QC): 6 Sit to Lying (QC): 6 Lying-Sitting on Side/Bed(QC): 6 Sit to Stand (QC): 6 Chair/Etf-hd-Twpof Xfer(QC): 6 Toilet Transfer (QC): 6 Car Transfer (QC): 6 Does the Patient Walk: Yes Walk 10 feet (QC): 6 Walk 50ft with 2 Turns (QC): 6 Walk 150 ft (QC): 6 Walking 10ft on Uneven Surface: 6 1 Step (curb) (QC): 4 (SBA) 4 Steps (QC): 4 (SBA) 12 Steps (QC): 4 (SBA) Picking up an Object (QC): 4 (SBA) Wheel 50 feet with 2 turns (QC: 9 Wheel 150 feet: 9 PT Plan Treatment/Plan Treatment Plan: Continue Plan of Care Treatment Plan: Bed Mobility, Education, Functional Activity Liang, Functional Strength, Group Therapy, Gait, Safety, Therapeutic Exercise, Transfers Treatment Duration: May 25, 2021 Frequency: At least 5 of 7 days/Wk (IRF) Estimated Hrs Per Day: 1.5 hours per day Patient and/or Family Agrees t: Yes Safety Risks/Education Patient Education: Gait Training, Transfer Techniques, Correct Positioning, Safety Issues Teaching Recipient: Patient Teaching Methods: Demonstration, Discussion Response to Teaching: Verbalize Understanding, Return Demonstration, Reinforcement Needed Time/GCodes Time In: 1100 Time Out: 1200 Total Billed Treatment Time: 60 Total Billed Treatment 1,GT25m,EX35m VALARIE GRACIA SCENIC ARTIST May 05, 2021 12:16
--- NOTE | 2021-05-05 13:58 | Physical Therapy Daily Note ---
PT Daily Note-Current Subjective Pt. agrees to Rx. Wants a snack and then wants to go to bed after Tx. Pain Location: No Pain Reported Mental Status Patient Orientation: Normal For Age Transfers SCALE: Activities may be completed with or without assistive devices. 5-Vqcrisbths-pirhzqs completes the activity by him/herself with no assistance from a helper. 5-Set-up or Clean-up Assistance-helper sets up or cleans up; patient completes activity. [place] assists only prior to or following the activity. 4-Supervision or Touching Assistance-helper provides verbal cues and/or touching/steadying and/or contact guard assistance as patient completes activity. Assistance may be provided throughout the activity or intermittently. 3-Partial/Moderate Assistance-helper does LESS THAN HALF the effort. [place] lifts, holds or supports trunk or limbs, but provides less than half the effort. 2-Substantial/Maximal Assistance-helper does MORE THAN HALF the effort. [place] lifts or holds trunk or limbs and provides more than half the effort. 4-Rmqmmvchk-ihynuv does ALL the effort. Patient does none of the effort to complete the activity. Or, the assistance of 2 or more helpers is required for the patient to complete the activity. If activity was not attempted, code reason: 7-Patient Refused. 9-Not Applicable-not attempted and the patient did not perform the activity bef ore the current illness, exacerbation or injury. 10-Not Attempted due to Environmental Limitations-(lack of equipment, weather r estraints, etc.). 88-Not Attempted due to Medical Conditions or Safety Concerns. all chair and bed TRFs as well as toilet TRFs SBA Gait Training Gait Assistive Device: FWW about her room 50 ft x3 SBA to CGA Neuromuscular pt. participated in balance challenges derived from BRANDON , will complete BRANDON 2- 10 Treatments gait, TRFs and balance challenges Assessment Current Status: Good Progress PT Short Term Goals Short Term Goals Time Frame: May 11, 2021 Roll Left & Right: 6 Sit to lyin Lying to sitting on side of be: 6 Sit to stand: 4 (SBA) Chair/etp-yn-tigwq transfer: 4 (SBA) Walk 10 feet: 4 (SBA) Walk 50 feet with two turns: 4 (SBA) Walk 150 feet: 4 (SBA) PT It Disaster Recovery Manager Goals It Disaster Recovery Manager Goals PT [facility] Goals Time Frame: May 25, 2021 Roll Left & Right (QC): 6 Sit to Lying (QC): 6 Lying-Sitting on Side/Bed(QC): 6 Sit to Stand (QC): 6 Chair/Cko-vv-Pgary Xfer(QC): 6 Toilet Transfer (QC): 6 Car Transfer (QC): 6 Does the Patient Walk: Yes Walk 10 feet (QC): 6 Walk 50ft with 2 Turns (QC): 6 Walk 150 ft (QC): 6 Walking 10ft on Uneven Surface: 6 1 Step (curb) (QC): 4 (SBA) 4 Steps (QC): 4 (SBA) 12 Steps (QC): 4 (SBA) Picking up an Object (QC): 4 (SBA) Wheel 50 feet with 2 turns (QC: 9 Wheel 150 feet: 9 PT Plan Treatment/Plan Treatment Plan: Continue Plan of Care Treatment Plan: Bed Mobility, Education, Functional Activity Liang, Functional Strength, Group Therapy, Gait, Safety, Therapeutic Exercise, Transfers Treatment Duration: May 25, 2021 Frequency: At least 5 of 7 days/Wk (IRF) Estimated Hrs Per Day: 1.5 hours per day Patient and/or Family Agrees t: Yes Safety Risks/Education Patient Education: Transfer Techniques, Correct Positioning, Safety Issues Teaching Recipient: Patient Teaching Methods: Demonstration, Discussion Response to Teaching: Verbalize Understanding, Return Demonstration, Reinforcement Needed Time/GCodes Time In: 1300 Time Out: 1320 Total Billed Treatment Time: 20 Total Billed Treatment 1,NM 20m VALARIE GRACIA [employer]RIX SYSTEMS ADMINISTRATOR May 05, 2021 13:58
[2021-05-05] MEDS: FAMOTIDINE 20 MG (PEPCID) TABLET PO PRN (16:21)
[2021-05-05] MEDS: FLUTICASONE NASAL SPRAY (FLONASE) 16 GM BTL NS SCH (20:14)
[2021-05-05] MEDS: meTOprolol TARTRATE 50 MG (LOPRESSOR) TAB PO SCH (20:16)
[2021-05-05] MEDS: amLODIPine 5 MG (NORVASC) TAB PO SCH (20:16)
[2021-05-05 20:24] VITALS: BP 176/80
[2021-05-06 07:13] VITALS: BP 134/60
[2021-05-06] MEDS: PANTOPRAZOLE 20 MG TABLET (PROTONIX) PO SCH (08:45)
[2021-05-06] MEDS: OMEGA 3 (FISH OIL) 1000 MG CAP PO SCH (08:45)
[2021-05-06] MEDS: ASPIRIN E.C. 81 MG (ECOTRIN) TAB PO SCH (08:45)
[2021-05-06] MEDS: VITAMIN D3 25 MCG (1,000 UNITS) TABLET PO SCH (08:45)
[2021-05-06] MEDS: LORATADINE (CLARITIN) 10 MG TAB PO SCH (08:45)
[2021-05-06] MEDS: DOCUSATE SODIUM 100 MG (COLACE) CAP PO SCH ×2 (08:48→20:11)
[2021-05-06] MEDS: polyethylene glycoL POWDER 17 GM (MIRALAX) PACK PO SCH ×2 (08:48→20:11)
[2021-05-06] MEDS: SENNA W/DOCUSATE (SENOKOT S) TABLET PO SCH ×2 (08:48→20:12)
[2021-05-06] MEDS: LEVETIRACETAM 500 MG PO SCH ×2 (08:52→20:10)
[2021-05-06] MEDS: TRIAMCINOLONE 0.1% CR (KENALOG) 15 GM TUBE TP SCH ×2 (08:54→20:11)
--- NOTE | 2021-05-06 08:55 | Physical Therapy Daily Note ---
PT Daily Note-Current Subjective Patient in recliner pre tx, agrees to PT, has minor pain in head. Appearance Patient in recliner post tx with nurse call, phone, tray, all needs met. Mental Status Patient Orientation: Person, Place, Situation Transfers SCALE: Activities may be completed with or without assistive devices. 4-Avwjmiieey-aiztwtw completes the activity by him/herself with no assistance from a helper. 5-Set-up or Clean-up Assistance-helper sets up or cleans up; patient completes activity. [place] assists only prior to or following the activity. 4-Supervision or Touching Assistance-helper provides verbal cues and/or touchi ng/steadying and/or contact guard assistance as patient completes activity. Assistance may be provided throughout the activity or intermittently. 3-Partial/Moderate Assistance-helper does LESS THAN HALF the effort. [place] lifts, holds or supports trunk or limbs, but provides less than half the effort. 2-Substantial/Maximal Assistance-helper does MORE THAN HALF the effort. [place] lifts or holds trunk or limbs and provides more than half the effort. 9-Kkrydfoij-dyxiwn does ALL the effort. Patient does none of the effort to complete the activity. Or, the assistance of 2 or more helpers is required for the patient to complete the activity. If activity was not attempted, code reason: 7-Patient Refused. 9-Not Applicable-not attempted and the patient did not perform the activity before the current illness, exacerbation or injury. 10-Not Attempted due to Environmental Limitations-(lack of equipment, weather restraints, etc.). 88-Not Attempted due to Medical Conditions or Safety Concerns. Sit to Stand (QC): 4 Chair/Npx-xe-Anqnm Xfer(QC): 4 SBA Gait Training Distance: 300', 150'x2 Walk 10 feet (QC): 4 Walk 50 ft with 2 Turns(QC): 4 Walk 150 ft (QC): 4 Gait Persons Needed: 1 Gait Assistive Device: FWW SBA, slow but steady ambulation, has a bit of a deviating path Exercises Standing: Heel/toe raises, Mini squats Standing Reps: 20 Attempted step-ups onto the airex for balance training with two fingers on parallel bars for balance but patient had too much difficulty to continue and she had some stiffness in her right leg and significant fatigue. NuStep Minutes: 15 NuStep Workload: 5 Treatments transfers, ambulation, balance training, functional strengthening Assessment Current Status: Fair Progress Patient seemed to fatigue very easily today PT Short Term Goals Short Term Goals Time Frame: May 11, 2021 Roll Left & Right: 6 Sit to lyin Lying to sitting on side of be: 6 Sit to stand: 4 (SBA) Chair/vca-ed-bfvte transfer: 4 (SBA) Walk 10 feet: 4 (SBA) Walk 50 feet with two turns: 4 (SBA) Walk 150 feet: 4 (SBA) PT Compressed Yeast Supervisor Goals [place] Goals PT Compressed Yeast Supervisor Goals Time Frame: May 25, 2021 Roll Left & Right (QC): 6 Sit to Lying (QC): 6 Lying-Sitting on Side/Bed(QC): 6 Sit to Stand (QC): 6 Chair/Jjn-ic-Dswlk Xfer(QC): 6 Toilet Transfer (QC): 6 Car Transfer (QC): 6 Does the Patient Walk: Yes Walk 10 feet (QC): 6 Walk 50ft with 2 Turns (QC): 6 Walk 150 ft (QC): 6 Walking 10ft on Uneven Surface: 6 1 Step (curb) (QC): 4 (SBA) 4 Steps (QC): 4 (SBA) 12 Steps (QC): 4 (SBA) Picking up an Object (QC): 4 (SBA) Wheel 50 feet with 2 turns (QC: 9 Wheel 150 feet: 9 PT Plan Problem List Problem List: Activity Tolerance, Functional Strength, Safety, Balance, Gait, Transfer, Bed Mobility, ROM Treatment/Plan Treatment Plan: Continue Plan of Care Treatment Plan: Bed Mobility, Education, Functional Activity Liang, Functional Strength, Group Therapy, Gait, Safety, Therapeutic Exercise, Transfers Treatment Duration: May 25, 2021 Frequency: At least 5 of 7 days/Wk (IRF) Estimated Hrs Per Day: 1.5 hours per day Patient and/or Family Agrees t: Yes Safety Risks/Education Patient Education: Gait Training, Transfer Techniques, Correct Positioning, Safety Issues Teaching Recipient: Patient Teaching Methods: Demonstration, Discussion Response to Teaching: Reinforcement Needed Time/GCodes Time In: 0800 Time Out: 0900 Total Billed Treatment Time: 60 Total Billed Treatment 1 visit EX 30' FA 30' ESMER LAWSON PT May 06, 2021 08:55
--- NOTE | 2021-05-06 09:44 | Speech Therapy Daily Note ---
Speech Daily Progress Note Subjective Date Seen by Provider: May 06, 2021 Time Seen by Provider: 09:00 The patient was seated upright in her recliner upon entrance. The patient greeted the clinician appropriately and was agreeable to participation in the cognitive linguistic treatment session. The patient denied pain or discomfort to the clinician at this time. Objective -Orientation: The patient is oriented to date, month, year, day of the week, place, and city. Initially, the patient stated her prior hospital location, however, self-corrected without the use of clinician cues. - MOCA Version One: The clinician initiated the MoCA Version One on this date. The patient appears to cognitively fatigue quickly, requesting frequent breaks (approximately two minutes in length) periodically throughout the treatment session. The patient completed trail-making, repetition of five digits forward and three digits in reverse, repetition of phrases, and comparison of two items with 100% accuracy. The patient displayed difficulty with serial seven subtraction, cube copying, and placing the clock hands on the accurate time. Assessment Assessment Current Status: Fair Progress Treatment Plan Continue Plan of Care Speech Short Term Goals Short Term Goals Short Term Goals 1. The patient will demonstrate word-finding strategies with 90% accuracy, independently. 2. The patient will demonstrate 90% accuracy with executive function tasks, independently. Speech Brazing Furnace Operator Goals [facility] Goals 1. The patient will demonstrate increased functional language and cognition for safe discharge to the least restricted environment. Speech-Plan Treatment Plan Speech Therapy Treatment Plan: Continue Plan of Care Treatment Duration: May 05, 2021 Frequency: 5 times per week Estimated Hrs Per Day: Other Rehab Potential: Fair Safety Risks/Education Teaching Recipient: Patient Teaching Methods: Discussion Response to Teaching: Verbalize Understanding Education Topics Provided: Plan of Care, Results of MoCA Time Speech Therapy Time In: 09:00 Speech Therapy Time Out: 09:30 Total Billed Time: 30 Billed Treatment Time 1CRISTABRANNON AGUILARHENRRY Anders May 06, 2021 09:44
--- NOTE | 2021-05-06 10:19 | PM&R Progress Note ---
Subjective HPI/CC On Admission Date Seen by Provider: May 06, 2021 Time Seen by Provider: 18:30 Subjective/Events-last exam 05/06/2021: Pt is doing well Took a shower Right sided weakness improved Depression screening for behavioral health consult will be ordered due to daughter's concern Checked meds and labs Overall has no concerns 05/05/2021: Pt is doing very well Working on stationary bike Checked meds and labs Hemoglobin was 8.8 [place] was [address] on steroids Checked bp Overall feels really good Review of Systems General: Fatigue, Malaise Neurological: Weakness Objective Exam Vital Signs Vital Signs Date Time Temp Pulse Resp B/P (MAP) Pulse Ox O2 Delivery O2 Flow Rate FiO2 05/06/21 20:22 98 Room Air 05/06/21 20:00 36.7 67 20 173/74 (107) Capillary Refill : General Appearance: No Apparent Distress, WD/WN, Chronically ill HEENT: PERRL/EOMI, Normal ENT Inspection, Pharynx Normal Neck: Full Range of Motion, Normal Inspection, Non Tender, Supple, Carotid Bruit Respiratory: Chest Non Tender, Lungs Clear, Normal Breath Sounds, No Accessory Muscle Use, No Respiratory Distress Cardiovascular: Regular Rate, Rhythm, No Edema, No Gallop, No JVD, No Murmur, Normal Peripheral Pulses Gastrointestinal: Normal Bowel Sounds, No Organomegaly, No Pulsatile Mass, Non Tender, Soft Back: Normal Inspection, No CVA Tenderness, No Vertebral Tenderness Extremity: Normal Capillary Refill, Normal Inspection, Normal Range of Motion, Non Tender, No Calf Tenderness, No Pedal Edema Neurologic/Psychiatric: Alert, Oriented x3, Abnormal Gait, Depressed Affect, Facial Droop (Right), Motor Weakness (Right-sided 3/5) Skin: Normal Color, Warm/Dry Lymphatic: No Adenopathy Results/Procedures Lab Patient resulted labs reviewed. FIM Transfers Therapy Code Descriptions/Definitions Functional [place] Measure: 0=Not Assessed/NA 4=Minimal Assistance 1=Total Assistance 5=Supervision or Setup 2=Maximal Assistance 6=Modified [place] 3=Moderate Assistance 7=Complete IndependenceSCALE: Activities may be completed with or without assistive devices. 1-Jthlhkpxrd-pizdwdz completes the activity by him/herself with no assistance from a helper. 5-Set-up or Clean-up Assistance-helper sets up or cleans up; patient completes activity. [place] assists only prior to or following the activity. 4-Supervision or Touching Assistance-helper provides verbal cues and/or touching/steadying and/or contact guard assistance as patient completes activity. Assistance may be provided throughout the activity or intermittently. 3-Partial/Moderate Assistance-helper does LESS THAN HALF the effort. [place] lifts, holds or supports trunk or limbs, but provides less than half the effort. 2-Substantial/Maximal Assistance-helper does MORE THAN HALF the effort. [place] lifts or holds trunk or limbs and provides more than half the effort. 2-Wjswtwvtk-eivgxw does ALL the effort. Patient does none of the effort to complete the activity. Or, the assistance of 2 or more helpers is required for the patient to complete the activity. If activity was not attempted, code reason: 7-Patient Refused. 9-Not Applicable-not attempted and the patient did not perform the activity before the current illness, exacerbation or injury. 10-Not Attempted due to Environmental Limitations-(lack of equipment, weather restraints, etc.). 88-Not Attempted due to Medical Conditions or Safety Concerns. Roll Left to Right (QC): 6 Sit to Lying (QC): 6 Sit to Stand (QC): 4 Chair/Rah-cz-Hhegd Xfer(QC): 4 Car Transfer (QC): 4 Gait Training Does the Patient Walk?: Yes Distance: 300', 150'x2 Walk 10 feet (QC): 4 Walk 50 ft with 2 Turns(QC): 4 Walk 150 ft (QC): 4 Walking 10ft/uneven surface-QC: 4 Gait Persons Needed: 1 Gait Assistive Device: FWW Wheelchair Training Does the Pt Use a Wheelchair?: No Wheel 50 ft with 2 turns (QC): 9 Wheel 150 ft (QC): 9 Stair Training #of Steps: 4 1 Step (curb) (QC): 4 4 Steps (QC): 4 12 Steps (QC): 88 Balance Picking up an Object (QC): 4 (using creative services intern) ADL-Treatment Eating (QC): 6 (IND with breakfast per pt report.) Oral Hygiene (QC): 4 Bathing Location: L Arm, R Arm, L Upper Leg, R Upper Leg, L Lower Leg (including foot), R Lower Leg (including foot), Chest, Abdomen, Buttocks, Perineal Area Shower/Bathe Self (QC): 4 (Pt required CGA when cleansing buttocks in standing.) Upper Body Dressing (QC): 3 Lower Body Dressing (QC): 3 On/Off Footwear (QC): 5 Toileting Hygiene (QC): 4 Toilet Transfer (QC): 4 Assessment/Plan Assessment and Plan Assess & Plan/Chief Complaint Assessment: CVA with right-sided weakness Right facial droop Hypertension Hyperlipidemia Depression Anxiety Status post craniotomy Anemia Leukocytosis from steroids Elevated liver enzymes Elevated platelet count Major depression evaluated by behavioral consult 05/06/2021 Plan: Restart home meds and [facility] meds Aggressive rehab Supportive care 05/05/2021: Pain control Aggressive rehab 05/06/2021: Review home meds for necessity Entertain changing Lexapro or adding Effexor (1) Hypertension (2) Right arm weakness (3) Facial droop (4) S/P craniotomy (5) CVA (cerebral vascular accident) (6) GERD (gastroesophageal reflux disease) MASOOD MARTÍNEZ DO May 06, 2021 10:19
--- NOTE | 2021-05-06 10:56 | Occupational Ther Daily Note ---
OT Current Status-Daily Note Subjective Pt alert, sitting in recliner. Pt states that she is depressed. Pt appears frustrated and tired. Pt agrees to therapy though closes eyes and has difficulty with choosing between 2 options. Mental Status/Objective Patient Orientation: Person, Place, Time, Situation Attachments: IV ADL-Treatment Supervision for safety to complete toileting and toilet transfer with FWW. Cues to call staff when finished with toileting for safety. Pt agrees to shower. Setup and SBA for shower, sitting in shower bench pt able to complete shower using grabbars and hand held shower for safety. SBA while pt stands to cleanse buttocks/jonn area. Verbal cues to have pt sit during certain tasks for safety. Pt able to doff lower body clothing and bra, assist to doff shirt due to bringing over head to miss kb. After set up, pt able to don lower body clothing with SBA for safety then dons bra and footwear by self. Assist to don shirt due to kb. Pt declines to complete oral care. After therapy, pt sitting in recliner with call light/phone in reach. All needs met in room. Therapy Code Descriptions/Definitions Functional [place] Measure: 0=Not Assessed/NA 4=Minimal Assistance 1=Total Assistance 5=Supervision or Setup 2=Maximal Assistance 6=Modified [place] 3=Moderate Assistance 7=Complete IndependenceSCALE: Activities may be completed with or without assistive devices. 9-Qekuucsohq-ozuyunf completes the activity by him/herself with no assistance from a helper. 5-Set-up or Clean-up Assistance-helper sets up or cleans up; patient completes activity. [place] assists only prior to or following the activity. 4-Supervision or Touching Assistance-helper provides verbal cues and/or touching/steadying and/or contact guard assistance as patient completes activity. Assistance may be provided throughout the activity or intermittently. 3-Partial/Moderate Assistance-helper does LESS THAN HALF the effort. [place] lifts, holds or supports trunk or limbs, but provides less than half the effort. 2-Substantial/Maximal Assistance-helper does MORE THAN HALF the effort. [place] lifts or holds trunk or limbs and provides more than half the effort. 7-Ghhmppxgv-gdgbfa does ALL the effort. Patient does none of the effort to complete the activity. Or, the assistance of 2 or more helpers is required for the patient to complete the activity. If activity was not attempted, code reason: 7-Patient Refused. 9-Not Applicable-not attempted and the patient did not perform the activity before the current illness, exacerbation or injury. 10-Not Attempted due to Environmental Limitations-(lack of equipment, weather restraints, etc.). 88-Not Attempted due to Medical Conditions or Safety Concerns. Eating (QC): 6 (per clinical judgment.) Oral Hygiene (QC): 7 Shower/Bathe Self (QC): 4 (SBA) Upper Body Dressing (QC): 3 (Kb in head, assist to thread shirt over head) Lower Body Dressing (QC): 4 On/Off Footwear: 5 Toileting Hygiene (QC): 4 (supervision) OT Short Term Goals Short Term Goals Time Frame: May 12, 2021 Toileting hygiene: 4 Upper body dressin Lower body dressin OT Robotic Machine Operator Goals Long-Term Goals Time Frame: May 28, 2021 Eating (QC): 6 Oral Hygiene (QC): 6 Toileting Hygiene (QC): 6 Shower/Bathe Self (QC): 6 Upper Body Dressing (QC): 6 Lower Body Dressing (QC): 6 On/Off Footwear (QC): 6 Additional Goals: 1-Demonstrate ADL Tasks, 2-Verbalize Understanding, 3- ImproveStrength/Liang 1=Demonstrate adherence to instructed precautions during ADL tasks. 2=Patient will verbalize/demonstrate understanding of assistive devices/modifications for ADL. 3=Patient will improve strength/tolerance for activity to enable patient to perform ADL's. OT Education/Plan Problem List/Assessment Assessment: Decreased Activ Tolerance, Decreased Safety Aware, Impaired Cognition, Impaired Self-Care Skills Discharge Recommendations Plan/Recommendations: Continue POC Treatment Plan/Plan of Care Patient would benefit from OT for education, treatment and training to promote independence in ADL's, mobility, safety and/or upper extremity function for ADL's. Plan of Care: ADL Retraining, Functional Mobility, Group Exercise/Act as Ind, UE Funct Exercise/Act Treatment Duration: May 28, 2021 Frequency: At least 5 of 7 days/Wk (IRF) Estimated Hrs Per Day: 1.5 hours per day Agreement: Yes Rehab Potential: Fair Time/GCodes Start Time: 09:30 Stop Time: 10:45 Total Time Billed (hr/min): 75 Billed Treatment Time 1 visit-ADL 5 (75 min) ELIDIA SAHA May 06, 2021 10:56
--- NOTE | 2021-05-06 11:03 | Physical Therapy Daily Note ---
PT Daily Note-Current Subjective Patient in recliner pre tx, agrees to PT, states she doesn't have much pain. Patient states she is very tired from therapy, she agrees to seated LE exercises. Appearance Patient in recliner post tx with nurse call, phone, tray, all needs met. Mental Status Patient Orientation: Person, Place, Situation Transfers SCALE: Activities may be completed with or without assistive devices. 7-Dtldhtdxdh-whfmtaz completes the activity by him/herself with no assistance from a helper. 5-Set-up or Clean-up Assistance-helper sets up or cleans up; patient completes activity. [place] assists only prior to or following the activity. 4-Supervision or Touching Assistance-helper provides verbal cues and/or touching/steadying and/or contact guard assistance as patient completes activity. Assistance may be provided throughout the activity or intermittently. 3-Partial/Moderate Assistance-helper does LESS THAN HALF the effort. [place] lifts, holds or supports trunk or limbs, but provides less than half the effort. 2-Substantial/Maximal Assistance-helper does MORE THAN HALF the effort. [place] lifts or holds trunk or limbs and provides more than half the effort. 0-Rdoakrilh-wqyazd does ALL the effort. Patient does none of the effort to complete the activity. Or, the assistance of 2 or more helpers is required for the patient to complete the activity. If activity was not attempted, code reason: 7-Patient Refused. 9-Not Applicable-not attempted and the patient did not perform the activity before the current illness, exacerbation or injury. 10-Not Attempted due to Environmental Limitations-(lack of equipment, weather restraints, etc.). 88-Not Attempted due to Medical Conditions or Safety Concerns. Exercises Seated Therapy Exercises: Ankle pumps, Hip flexion, Hip abd/add (with ball and RTB) LAQ alternating for 5 min Treatments LE strengthening Assessment Current Status: Fair Progress overall progressing with functional mobility PT Short Term Goals Short Term Goals Time Frame: May 11, 2021 Roll Left & Right: 6 Sit to lyin Lying to sitting on side of be: 6 Sit to stand: 4 (SBA) Chair/ymd-dn-ikndd transfer: 4 (SBA) Walk 10 feet: 4 (SBA) Walk 50 feet with two turns: 4 (SBA) Walk 150 feet: 4 (SBA) PT Retirement Goals Retirement Goals PT Cinder Pit Crane Operator Goals Time Frame: May 25, 2021 Roll Left & Right (QC): 6 Sit to Lying (QC): 6 Lying-Sitting on Side/Bed(QC): 6 Sit to Stand (QC): 6 Chair/Vso-ct-Wiugc Xfer(QC): 6 Toilet Transfer (QC): 6 Car Transfer (QC): 6 Does the Patient Walk: Yes Walk 10 feet (QC): 6 Walk 50ft with 2 Turns (QC): 6 Walk 150 ft (QC): 6 Walking 10ft on Uneven Surface: 6 1 Step (curb) (QC): 4 (SBA) 4 Steps (QC): 4 (SBA) 12 Steps (QC): 4 (SBA) Picking up an Object (QC): 4 (SBA) Wheel 50 feet with 2 turns (QC: 9 Wheel 150 feet: 9 PT Plan Problem List Problem List: Activity Tolerance, Functional Strength, Safety, Balance, Gait, Transfer, Bed Mobility, ROM Treatment/Plan Treatment Plan: Continue Plan of Care Treatment Plan: Bed Mobility, Education, Functional Activity Liang, Functional Strength, Group Therapy, Gait, Safety, Therapeutic Exercise, Transfers Treatment Duration: May 25, 2021 Frequency: At least 5 of 7 days/Wk (IRF) Estimated Hrs Per Day: 1.5 hours per day Patient and/or Family Agrees t: Yes Safety Risks/Education Patient Education: Correct Positioning, Safety Issues Teaching Recipient: Patient Teaching Methods: Demonstration, Discussion Response to Teaching: Reinforcement Needed Time/GCodes Time In: 1045 Time Out: 1100 Total Billed Treatment Time: 15 Total Billed Treatment 1 visit EX ESMER DIAZ PT May 06, 2021 11:03
--- NOTE | 2021-05-06 14:52 | Behavioral Health Consult ---
Consult- Consult Date Seen by Provider: May 06, 2021 Time Seen by Provider: 12:50 CPT Code: 70294 Psychodiagnostic Examination, 89073 +Interactive Complexity, 1 unit(s) Start Time: 1250 Stop Time: 1345 Chief Complaint: depression Referral: Selena Gibson is a 75-year-old, , female referred by Dr. Simon for a clinical diagnostic assessment. Information for this evaluation was gathered from self-report and medical records. Therapists talked with RN and manager social services prior to meeting with Selena. Presenting Problem: The presenting clinical problem is depression. Selena acknowledge that she has depression and has been on Lexapro for many years. She thought it has been over 20 years. She reported that one time it was increased, but then she has remained on the same dose for a long time. She stated she is uncertain about the effectiveness of Lexapro and is open to having it increased or changed. She reported she is open to having all her medications evaluated as she does not feel like they have been really looked at in many years. She denied any suicidal thoughts. Therapist was informed that Selena made a statement about wishing she had during surgery. Therapist asked Selena about this and she stated that she does not recall making this statement. She stated she does not want to do anything to hurt herself but is ready to when her time comes. She reported frustration that her tumor returned but is hopeful she will recover as she did last time. She talked about the unused space in her house where her mother lived prior to her . She stated she does not know what to do with all the things in that part of the house as no one wants the items. She reported it was overwhelming so she just stopped doing anything with all it. Overall symptoms observed or reported requiring current level of care include appetite disturbance, depressed mood, familial stress/strain, grief, irritability, medical problems, memory problems, and worry. Observations/Mental Status: Selena was sitting in a chair in her hospital room when therapist arrived. Overall appearance was unremarkable clinically. Selena appeared to be an adequate historian. Observed gait and gross motor movements were not observed. In regards to pain, no problems were reported. Laure general approach to the evaluation was guarded at first, but then cooperative. Orientation was intact for person, place, time, and situation. Selena evidenced good understanding of the reason for the appointment. Laure in-session behavior was cooperative. The predominant mood was depressed with restricted affect. Immediate attention and concentration was grossly intact. Memory functioning appeared to be intact. Level of intellectual functioning compared to same age peers was estimated to be in the average range. Thought processes were found to be appropriate and focused during the appointment. Thought content appeared normal. There was no report or evidence of hallucinations or delusions. Psychomotor functioning was within normal limits. Tone of voice was normal and controlled. Expressive speech was marked by fluent speech and language. Eye contact was good. Insight was average. Overall, style of interacting during the appointment was appropriate and motivated. Current/Previous Mental Health Treatment: Past psychiatric history was reported as prescribed Lexapro by her PCP for many years. She denied any psychotherapy. History of self or other harm: denied. Abuse history: none reported. Medical History: Medical conditions were reported as expressive aphasia, Adies pupil, cerebral infarct, right homonymous hemianopia, hypertension, meningioma, GERD, hyperlipidemia, hiatal hernia, arthritis, restless leg syndrome, obstructive sleep apnea on CPAP, and history of blood transfusions. Drug allergies: clindamycin and phenytoin. Current physician is Dr. Lopes. Recreational Drug Usage: Substance abuse history was reported as none. 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 Legal History: Legal history was reported as none. Family and Social Histories: Selena lives with her in [place], [place]. She stated she has a daughter that lives in [place], [place] and two adult grandchildren. She reported her has health issues and she had taken care of him. She stated she does not have any activities and mostly cleans her house during the day. Strengths/Weaknesses: Strengths/Resources: supportive family Liabilities/Barriers: health problems Summary and Recommendations: Selena is a 75-year-old female with history of depression and significant health issues. Following current assessment, presenting problem and symptoms appear consistent with a preliminary diagnosis of F33.1 Major Depressive Disorder, Recurrent, Moderate. Current emotional symptoms are of moderate intensity. Overall, prognosis is estimated to be good. Overall Selena seems to be doing well emotional given her significant health issues. She admits to depression but denies any suicidal ideation. She talked about future activities. She reported some struggles with memory but could not describe. She stated they seem to be improving. She appeared positive about her progress. It is recommended that her antidepressant be evaluated to determine if an increase or change in medication is appropriate. She reported that she has been on many of her medications for a while and that a doctor should look at them and make sure she still needs to be on them. She denied any need for psychotherapy at this time. Therapist told her how to access services if she changes her mind. ICD-10 Diagnostic Impressions: F33.1 Major Depressive Disorder, Recurrent, Moderate ALVIN [facility] May 06, 2021 14:52
[2021-05-06 20:00] VITALS: BP 173/74
[2021-05-06] MEDS: amLODIPine 5 MG (NORVASC) TAB PO SCH (20:07)
[2021-05-06] MEDS: meTOprolol TARTRATE 50 MG (LOPRESSOR) TAB PO SCH (20:07)
[2021-05-06] MEDS: ACETAMINOPHEN 325 MG TABLET PO PRN (20:08)
[2021-05-06] MEDS: FLUTICASONE NASAL SPRAY (FLONASE) 16 GM BTL NS SCH (20:10)
--- NOTE | 2021-05-07 06:19 | PM&R Progress Note ---
Subjective HPI/CC On Admission Date Seen by Provider: May 07, 2021 Time Seen by Provider: 09:00 Subjective/Events-last exam 05/07/2021: Patient doing well No pain is reported Will review a change to her Lexapro Check meds labs Major depression diagnosed by [facility] 05/06/2021: Pt is doing well Took a shower Right sided weakness improved Depression screening for behavioral health consult will be ordered due to daughter's concern Checked meds and labs Overall has no concerns 05/05/2021: Pt is doing very well Working on stationary bike Checked meds and labs Hemoglobin was 8.8 [place] [address] on steroids Checked bp Overall feels really good Review of Systems General: Fatigue, Malaise Objective Exam Vital Signs Vital Signs Date Time Temp Pulse Resp B/P (MAP) Pulse Ox O2 Delivery O2 Flow Rate FiO2 05/07/21 20:50 98 Room Air 05/07/21 20:15 36.3 67 20 155/70 (98) Capillary Refill : General Appearance: No Apparent Distress, WD/WN, Chronically ill HEENT: PERRL/EOMI, Normal ENT Inspection, Pharynx Normal Neck: Full Range of Motion, Normal Inspection, Non Tender, Supple, Carotid Bruit Respiratory: Chest Non Tender, Lungs Clear, Normal Breath Sounds, No Accessory Muscle Use, No Respiratory Distress Cardiovascular: Regular Rate, Rhythm, No Edema, No Gallop, No JVD, No Murmur, Normal Peripheral Pulses Gastrointestinal: Normal Bowel Sounds, No Organomegaly, No Pulsatile Mass, Non Tender, Soft Back: Normal Inspection, No CVA Tenderness, No Vertebral Tenderness Extremity: Normal Capillary Refill, Normal Inspection, Normal Range of Motion, Non Tender, No Calf Tenderness, No Pedal Edema Neurologic/Psychiatric: Alert, Oriented x3, Abnormal Gait, Depressed Affect, Facial Droop (Right), Motor Weakness (Right-sided 3/5) Skin: Normal Color, Warm/Dry Lymphatic: No Adenopathy Results/Procedures Lab Patient resulted labs reviewed. FIM Transfers Therapy Code Descriptions/Definitions Functional [place] Measure: 0=Not Assessed/NA 4=Minimal Assistance 1=Total Assistance 5=Supervision or Setup 2=Maximal Assistance 6=Modified [place] 3=Moderate Assistance 7=Complete IndependenceSCALE: Activities may be completed with or without assistive devices. 4-Hxrrhuevxn-jdwmwcf completes the activity by him/herself with no assistance from a helper. 5-Set-up or Clean-up Assistance-helper sets up or cleans up; patient completes activity. [place] assists only prior to or following the activity. 4-Supervision or Touching Assistance-helper provides verbal cues and/or touching/steadying and/or contact guard assistance as patient completes activity. Assistance may be provided throughout the activity or intermittently. 3-Partial/Moderate Assistance-helper does LESS THAN HALF the effort. [place] lifts, holds or supports trunk or limbs, but provides less than half the effort. 2-Substantial/Maximal Assistance-helper does MORE THAN HALF the effort. [place] lifts or holds trunk or limbs and provides more than half the effort. 9-Kctvhvkvv-mxaxrw does ALL the effort. Patient does none of the effort to complete the activity. Or, the assistance of 2 or more helpers is required for the patient to complete the activity. If activity was not attempted, code reason: 7-Patient Refused. 9-Not Applicable-not attempted and the patient did not perform the activity before the current illness, exacerbation or injury. 10-Not Attempted due to Environmental Limitations-(lack of equipment, weather restraints, etc.). 88-Not Attempted due to Medical Conditions or Safety Concerns. Roll Left to Right (QC): 6 Sit to Lying (QC): 6 Sit to Stand (QC): 4 Chair/Umn-ea-Lkcfs Xfer(QC): 4 Car Transfer (QC): 4 Gait Training Does the Patient Walk?: Yes Distance: 300', 150'x2 Walk 10 feet (QC): 4 Walk 50 ft with 2 Turns(QC): 4 Walk 150 ft (QC): 4 Walking 10ft/uneven surface-QC: 4 Gait Persons Needed: 1 Gait Assistive Device: FWW Wheelchair Training Does the Pt Use a Wheelchair?: No Wheel 50 ft with 2 turns (QC): 9 Wheel 150 ft (QC): 9 Stair Training #of Steps: 4 1 Step (curb) (QC): 4 4 Steps (QC): 4 12 Steps (QC): 88 Balance Picking up an Object (QC): 4 (using meat and seafood clerk) ADL-Treatment Eating (QC): 6 (per clinical judgment.) Oral Hygiene (QC): 7 Bathing Location: L Arm, R Arm, L Upper Leg, R Upper Leg, L Lower Leg (including foot), R Lower Leg (including foot), Chest, Abdomen, Buttocks, Per ineal Area Shower/Bathe Self (QC): 4 (SBA) Upper Body Dressing (QC): 3 ([place] in head, assist to thread shirt over head) Lower Body Dressing (QC): 4 On/Off Footwear (QC): 5 Toileting Hygiene (QC): 4 (supervision) Toilet Transfer (QC): 4 Assessment/Plan Assessment and Plan Assess & Plan/Chief Complaint Assessment: CVA with right-sided weakness Right facial droop Hypertension Hyperlipidemia Depression Anxiety Status post craniotomy Anemia Leukocytosis from steroids Elevated liver enzymes Elevated platelet count Major depression evaluated by behavioral consult 05/06/2021 Plan: Restart home meds and [facility] meds Aggressive rehab Supportive care 05/05/2021: Pain control Aggressive rehab 05/06/2021: Review home meds for necessity Entertain changing Lexapro or adding Effexor 05/07/2021: Still reviewing all of her medication as she requested Supportive care (1) Hypertension (2) Right arm weakness (3) Facial droop (4) S/P craniotomy (5) CVA (cerebral vascular accident) (6) GERD (gastroesophageal reflux disease) MASOOD MARTÍNEZ DO May 07, 2021 06:19
[2021-05-07 07:22] VITALS: BP 146/67
[2021-05-07] MEDS: ASPIRIN E.C. 81 MG (ECOTRIN) TAB PO SCH (07:22)
[2021-05-07] MEDS: LORATADINE (CLARITIN) 10 MG TAB PO SCH (07:23)
[2021-05-07] MEDS: PANTOPRAZOLE 20 MG TABLET (PROTONIX) PO SCH (07:23)
[2021-05-07] MEDS: OMEGA 3 (FISH OIL) 1000 MG CAP PO SCH (07:24)
[2021-05-07] MEDS: VITAMIN D3 25 MCG (1,000 UNITS) TABLET PO SCH (07:24)
[2021-05-07] MEDS: DOCUSATE SODIUM 100 MG (COLACE) CAP PO SCH ×2 (07:25→20:39)
[2021-05-07] MEDS: SENNA W/DOCUSATE (SENOKOT S) TABLET PO SCH ×2 (07:25→20:39)
[2021-05-07] MEDS: TRIAMCINOLONE 0.1% CR (KENALOG) 15 GM TUBE TP SCH (07:27)
[2021-05-07] MEDS: LEVETIRACETAM 500 MG PO SCH ×2 (07:27→20:38)
[2021-05-07] MEDS: polyethylene glycoL POWDER 17 GM (MIRALAX) PACK PO SCH ×2 (08:24→20:53)
--- NOTE | 2021-05-07 09:01 | Occupational Ther Daily Note ---
OT Current Status-Daily Note Subjective Pt alert, sitting in recliner. Pt agrees to therapy. No c/o pain at this time. Pt does have difficulty with choices of 2 items and loses track of what she is doing next, cues needed when this happens. Mental Status/Objective Patient Orientation: Person, Place, Time, Situation ADL-Treatment Pt declines shower, stating that one was completed yesterday. Pt independent with eating. Nrsg in room to administer meds. Pt ambulated with FWW to bathroom to complete oral care and grooming standing at sink independently, stabilizing with counter. Pt then ambulated to closet to retrieve clothing, cues given to place clothes over FWW instead of carrying with one arm and using other arm to push FWW. Pt then completed dressing, assist to problem solve what to initiate first then to follow through when pt had difficulty with remembering what to do next. Pt able to dress self with cues. Pt then ambulated using FWW to laundry room in anticipation of pt completing own laundry at later time. This was completed for pt's comfort if family unable to launder clothing. After therapy, pt sitting in recliner with call light/phone in reach. All needs met in room. Therapy Code Descriptions/Definitions Functional [place] Measure: 0=Not Assessed/NA 4=Minimal Assistance 1=Total Assistance 5=Supervision or Setup 2=Maximal Assistance 6=Modified [place] 3=Moderate Assistance 7=Complete IndependenceSCALE: Activities may be completed with or without assistive devices. 6-Yxhhhylvfl-stlqcax completes the activity by him/herself with no assistance from a helper. 5-Set-up or Clean-up Assistance-helper sets up or cleans up; patient completes activity. [place] assists only prior to or following the activity. 4-Supervision or Touching Assistance-helper provides verbal cues and/or touching/steadying and/or contact guard assistance as patient completes activity. Assistance may be provided throughout the activity or intermittently. 3-Partial/Moderate Assistance-helper does LESS THAN HALF the effort. [place] lifts, holds or supports trunk or limbs, but provides less than half the effort. 2-Substantial/Maximal Assistance-helper does MORE THAN HALF the effort. [place] lifts or holds trunk or limbs and provides more than half the effort. 3-Qwrjzjlbl-bddxpw does ALL the effort. Patient does none of the effort to complete the activity. Or, the assistance of 2 or more helpers is required for the patient to complete the activity. If activity was not attempted, code reason: 7-Patient Refused. 9-Not Applicable-not attempted and the patient did not perform the activity before the current illness, exacerbation or injury. 10-Not Attempted due to Environmental Limitations-(lack of equipment, weather restraints, etc.). 88-Not Attempted due to Medical Conditions or Safety Concerns. Eating (QC): 6 Oral Hygiene (QC): 6 Upper Body Dressing (QC): 4 Lower Body Dressing (QC): 4 On/Off Footwear: 4 OT Short Term Goals Short Term Goals Time Frame: May 12, 2021 Toileting hygiene: 4 Upper body dressin Lower body dressin OT Nursing Home Goals Nursing Home Goals Time Frame: May 28, 2021 Eating (QC): 6 Oral Hygiene (QC): 6 Toileting Hygiene (QC): 6 Shower/Bathe Self (QC): 6 Upper Body Dressing (QC): 6 Lower Body Dressing (QC): 6 On/Off Footwear (QC): 6 Additional Goals: 1-Demonstrate ADL Tasks, 2-Verbalize Understanding, 3- ImproveStrength/Liang 1=Demonstrate adherence to instructed precautions during ADL tasks. 2=Patient will verbalize/demonstrate understanding of assistive devices/modifications for ADL. 3=Patient will improve strength/tolerance for activity to enable patient to perform ADL's. OT Education/Plan Problem List/Assessment Assessment: Decreased Activ Tolerance, Decreased Safety Aware, Impaired Cognition Discharge Recommendations Plan/Recommendations: Continue POC Treatment Plan/Plan of Care Patient would benefit from OT for education, treatment and training to promote independence in ADL's, mobility, safety and/or upper extremity function for ADL's. Plan of Care: ADL Retraining, Functional Mobility, Group Exercise/Act as Ind, UE Funct Exercise/Act Treatment Duration: May 28, 2021 Frequency: At least 5 of 7 days/Wk (IRF) Estimated Hrs Per Day: 1.5 hours per day Agreement: Yes Rehab Potential: Fair Time/GCodes Start Time: 07:00 Stop Time: 08:15 Total Time Billed (hr/min): 75 Billed Treatment Time 1 visit-ADL 5 (75 min) ELIDIA SAHA May 07, 2021 09:01
--- NOTE | 2021-05-07 09:46 | Speech Therapy Daily Note ---
Speech Daily Progress Note Subjective Date Seen by Provider: May 07, 2021 Time Seen by Provider: 09:00 The patient was seated upright in her recliner, awake and alert upon entrance. The patient greeted the clinician appropriately and was agreeable to participation in the cognitive linguistic treatment session however does report fatigue. Objective - Orientation: The patient remains independently oriented to self, location, city, month, day of week, date, and year. - The patient completed the MoCA on this date. The patient's score was a +24/30 correlating to a mild cognitive linguistic impairment. The patient displayed impairment in the areas of delayed recall (recalled two of five items following a five minute delay), serial seven subtraction, cube copying (executive functioning), and word finding (the patient was able to name four animal within a minute, WNL=15). - Word Finding Task: The patient was provided a specific category and asked to provide a word beginning with the initial letter provided. The patient displayed fair accuracy with moderate clinician verbal cueing. The patient required one three minute break in the middle of the treatment session due to fatigue. Assessment Assessment Current Status: Fair Progress Treatment Plan Continue Plan of Care Speech Short Term Goals Short Term Goals Short Term Goals 1. The patient will demonstrate word-finding strategies with 90% accuracy, indep endently. 2. The patient will demonstrate 90% accuracy with executive function tasks, independently. Speech Piano Teacher Goals Assisted Goals 1. The patient will demonstrate increased functional language and cognition for safe discharge to the least restricted environment. Speech-Plan Treatment Plan Speech Therapy Treatment Plan: Continue Plan of Care Treatment Duration: May 05, 2021 Frequency: 5 times per week Estimated Hrs Per Day: Other Rehab Potential: Fair Safety Risks/Education Teaching Recipient: Patient Teaching Methods: Discussion Response to Teaching: Verbalize Understanding, Reinforcement Needed Education Topics Provided: Plan of Care, MoCA Results Time Speech Therapy Time In: 09:00 Speech Therapy Time Out: 09:30 Total Billed Time: 30 Billed Treatment Time Saundra CRISTABRANNON HENRRY MACHADO May 07, 2021 09:46
--- NOTE | 2021-05-07 10:22 | Physical Therapy Daily Note ---
PT Daily Note-Current Subjective Pt.agrees to Rx reluctantly, "what exactly are we doing"?"why do we have to go in that room" ? " Its so confusing". Pain Numeric Pain Scale: 5-Moderate Pain Location: Left (and right) Location Body Site: Knee Pain Description: Ache Mental Status pt. appears depressed perhaps, mentions that she doesnt know what to do about her home and her future Transfers SCALE: Activities may be completed with or without assistive devices. 0-Wzriagbrih-mngmhup completes the activity by him/herself with no assistance from a helper. 5-Set-up or Clean-up Assistance-helper sets up or cleans up; patient completes activity. [place] assists only prior to or following the activity. 4-Supervision or Touching Assistance-helper provides verbal cues and/or touching/steadying and/or contact guard assistance as patient completes activity. Assistance may be provided throughout the activity or intermittently. 3-Partial/Moderate Assistance-helper does LESS THAN HALF the effort. [place] lifts, holds or supports trunk or limbs, but provides less than half the effort. 2-Substantial/Maximal Assistance-helper does MORE THAN HALF the effort. [place] lifts or holds trunk or limbs and provides more than half the effort. 0-Nxosnzsvl-dffjcn does ALL the effort. Patient does none of the effort to complete the activity. Or, the assistance of 2 or more helpers is required for the patient to complete the activity. If activity was not attempted, code reason: 7-Patient Refused. 9-Not Applicable-not attempted and the patient did not perform the activity b efore the current illness, exacerbation or injury. 10-Not Attempted due to Environmental Limitations-(lack of equipment, weather restraints, etc.). 88-Not Attempted due to Medical Conditions or Safety Concerns. Roll Left & Right (QC): 6 Sit to Lying (QC): 6 Lying to Sitting/Side of Bed(Q: 6 Sit to Stand (QC): 6 Chair/Qxv-vi-Wbarl Xfer(QC): 6 Gait Training Does the Patient Walk?: Yes Walk 10 feet (QC): 5 Walk 50 ft with 2 Turns(QC): 5 Walk 150 ft (QC): 5 Gait Persons Needed: 1 Gait Assistive Device: FWW gait 400ft x 2 150 ft x 1, SBA and many cues for direction and turning, side stepping , retro gait with FWW, 360 deg turns bilat, fig 8s x 4, no LOB but needs instructd several times Stair Training Stair Training: Handrails/: 2 handrails #of Steps: 4 4 Steps (QC): 4 Stairs: Pattern: Step to pt. with knee pain ascended and descended protecting left Exercises Seated Therapy Exercises: Ankle pumps, Sit to stand, Long arc quads, Hip flexion, Hip abd/add Seated Reps: 15 Standing: Hip Abduction, Heel/toe raises, Marching, Side steps Standing Reps: 15 NuStep Minutes: 10 Assessment Current Status: Good Progress PT Short Term Goals Short Term Goals Time Frame: May 11, 2021 Roll Left & Right: 6 Sit to lyin Lying to sitting on side of be: 6 Sit to stand: 4 (SBA) Chair/gap-uh-yylnq transfer: 4 (SBA) Walk 10 feet: 4 (SBA) Walk 50 feet with two turns: 4 (SBA) Walk 150 feet: 4 (SBA) PT Driver/Sales Workers Goals Driver/Sales Workers Goals PT Driver/Sales Workers Goals Time Frame: May 25, 2021 Roll Left & Right (QC): 6 Sit to Lying (QC): 6 Lying-Sitting on Side/Bed(QC): 6 Sit to Stand (QC): 6 Chair/Udh-zj-Djrzh Xfer(QC): 6 Toilet Transfer (QC): 6 Car Transfer (QC): 6 Does the Patient Walk: Yes Walk 10 feet (QC): 6 Walk 50ft with 2 Turns (QC): 6 Walk 150 ft (QC): 6 Walking 10ft on Uneven Surface: 6 1 Step (curb) (QC): 4 (SBA) 4 Steps (QC): 4 (SBA) 12 Steps (QC): 4 (SBA) Picking up an Object (QC): 4 (SBA) Wheel 50 feet with 2 turns (QC: 9 Wheel 150 feet: 9 PT Plan Treatment/Plan Treatment Plan: Continue Plan of Care Treatment Plan: Bed Mobility, Education, Functional Activity Liang, Functional Strength, Group Therapy, Gait, Safety, Therapeutic Exercise, Transfers Treatment Duration: May 25, 2021 Frequency: At least 5 of 7 days/Wk (IRF) Estimated Hrs Per Day: 1.5 hours per day Patient and/or Family Agrees t: Yes Safety Risks/Education Patient Education: Gait Training, Transfer Techniques, Steps, Correct Positioning, Disease Process, Safety Issues Teaching Recipient: Patient Teaching Methods: Demonstration, Discussion Response to Teaching: Verbalize Understanding, Return Demonstration, Reinforcement Needed Time/GCodes Time In: 815 Time Out: 900 Total Billed Treatment Time: 45 Total Billed Treatment 1,GT20m,FA10m,EX15m VALARIE GRACIA EMERGENCY DEPARTMENT AIDE May 07, 2021 10:22
--- NOTE | 2021-05-07 11:37 | Physical Therapy Daily Note ---
PT Daily Note-Current Subjective Pt. agrees to Rx but needs repeated cues as she asks many times what we are doing. Pt. asks to be lead through all of the exercises and wants the CHIEF OF VITAL STATISTICS to count as she feels it is too confusing. Pt. was also tasked to find her room and remember her room number with assist. Pt. asks multiple times for bottled water stating she will not drink the water here, Pt. has approx 1/2 cup water in her Dasani bottle but states it is "stale" and she will not drink it. Bottled water was ordered from cafeteria for pt. to her room Pain Numeric Pain Scale: 4 Location: Left (and right) Location Body Site: Knee Pain Description: Ache Mental Status Patient Orientation: Confused Transfers SCALE: Activities may be completed with or without assistive devices. 6-Qncjuufkal-rdxxtjw completes the activity by him/herself with no assistance from a helper. 5-Set-up or Clean-up Assistance-helper sets up or cleans up; patient completes activity. [place] assists only prior to or following the activity. 4-Supervision or Touching Assistance-helper provides verbal cues and/or touching/steadying and/or contact guard assistance as patient completes activity. Assistance may be provided throughout the activity or intermittently. 3-Partial/Moderate Assistance-helper does LESS THAN HALF the effort. [place] lifts, holds or supports trunk or limbs, but provides less than half the effort. 2-Substantial/Maximal Assistance-helper does MORE THAN HALF the effort. [place] lifts or holds trunk or limbs and provides more than half the effort. 5-Siulmpogi-hkgbdm does ALL the effort. Patient does none of the effort to complete the activity. Or, the assistance of 2 or more helpers is required for the patient to complete the activity. If activity was not attempted, code reason: 7-Patient Refused. 9-Not Applicable-not attempted and the patient did not perform the activity before the current illness, exacerbation or injury. 10-Not Attempted due to Environmental Limitations-(lack of equipment, weather restraints, etc.). 88-Not Attempted due to Medical Conditions or Safety Concerns. in out chair, bed and on off toilet Mod I to SBA Gait Training Does the Patient Walk?: Yes Gait Assistive Device: FWW 175 ft , 200 ft FWW with challenge of finding her room, pt. made her way around entire unit and needed cuing to follow signage and room numbers etc Exercises Supine Ex: Bridging, Ankle pumps, Quad Set, Rolling, Glut sets, Lower trunk rotation, Heel Slides, Short Arc Quads, Scooting, Straight leg raise, Hip abd/add Supine Reps: 12 Treatments up in recliner after above described Tx, call johnson at hand PT Short Term Goals Short Term Goals Time Frame: May 11, 2021 Roll Left & Right: 6 Sit to lyin Lying to sitting on side of be: 6 Sit to stand: 4 (SBA) Chair/tju-mj-ggofw transfer: 4 (SBA) Walk 10 feet: 4 (SBA) Walk 50 feet with two turns: 4 (SBA) Walk 150 feet: 4 (SBA) PT Calender Runner Goals Prison Goals PT Prison Goals Time Frame: May 25, 2021 Roll Left & Right (QC): 6 Sit to Lying (QC): 6 Lying-Sitting on Side/Bed(QC): 6 Sit to Stand (QC): 6 Chair/Xii-gv-Pysjm Xfer(QC): 6 Toilet Transfer (QC): 6 Car Transfer (QC): 6 Does the Patient Walk: Yes Walk 10 feet (QC): 6 Walk 50ft with 2 Turns (QC): 6 Walk 150 ft (QC): 6 Walking 10ft on Uneven Surface: 6 1 Step (curb) (QC): 4 (SBA) 4 Steps (QC): 4 (SBA) 12 Steps (QC): 4 (SBA) Picking up an Object (QC): 4 (SBA) Wheel 50 feet with 2 turns (QC: 9 Wheel 150 feet: 9 PT Plan Treatment/Plan Treatment Plan: Continue Plan of Care Treatment Plan: Bed Mobility, Education, Functional Activity Liang, Functional Strength, Group Therapy, Gait, Safety, Therapeutic Exercise, Transfers Treatment Duration: May 25, 2021 Frequency: At least 5 of 7 days/Wk (IRF) Estimated Hrs Per Day: 1.5 hours per day Patient and/or Family Agrees t: Yes Safety Risks/Education Patient Education: Gait Training, Correct Positioning Teaching Recipient: Patient Response to Teaching: Reinforcement Needed Time/GCodes Time In: 1100 Time Out: 1130 Total Billed Treatment Time: 30 Total Billed Treatment 1,GT15m,EX15m VALARIE GRACIA CHIEF OF VITAL STATISTICS May 07, 2021 11:37
[2021-05-07 20:15] VITALS: BP 155/70
[2021-05-07] MEDS: FLUTICASONE NASAL SPRAY (FLONASE) 16 GM BTL NS SCH (20:37)
[2021-05-07] MEDS: amLODIPine 5 MG (NORVASC) TAB PO SCH (20:39)
[2021-05-07] MEDS: meTOprolol TARTRATE 50 MG (LOPRESSOR) TAB PO SCH (20:40)
[2021-05-07] MEDS: ACETAMINOPHEN 325 MG TABLET PO PRN (20:47)
--- NOTE | 2021-05-08 06:48 | PM&R Progress Note ---
Subjective HPI/CC On Admission Date Seen by Provider: May 08, 2021 Time Seen by Provider: 12:00 Subjective/Events-last exam 05/08/2021: Patient very depressed Effexor started today to add to Celexa to give her a boost I talked to her about her Lipitor dose Checked meds and labs 05/07/2021: Patient doing well No pain is reported Will review a change to her Lexapro Check meds labs Major depression diagnosed by [facility] 05/06/2021: Pt is doing well Took a shower Right sided weakness improved Depression screening for behavioral health consult will be ordered due to daughter's concern Checked meds and labs Overall has no concerns 05/05/2021: Pt is doing very well Working on stationary bike Checked meds and labs Hemoglobin was 8.8 [place] 72785 on steroids Checked bp Overall feels really good Review of Systems General: Fatigue Objective Exam Vital Signs Vital Signs Date Time Temp Pulse Resp B/P (MAP) Pulse Ox O2 Delivery O2 Flow Rate FiO2 05/08/21 20:58 97 Room Air 05/08/21 20:51 127/72 (90) 05/08/21 19:53 36.4 73 16 Capillary Refill : General Appearance: No Apparent Distress, WD/WN, Chronically ill HEENT: PERRL/EOMI, Normal ENT Inspection, Pharynx Normal Neck: Full Range of Motion, Normal Inspection, Non Tender, Supple, Carotid Bruit Respiratory: Chest Non Tender, Lungs Clear, Normal Breath Sounds, No Accessory Muscle Use, No Respiratory Distress Cardiovascular: Regular Rate, Rhythm, No Edema, No Gallop, No JVD, No Murmur, Normal Peripheral Pulses Gastrointestinal: Normal Bowel Sounds, No Organomegaly, No Pulsatile Mass, Non Tender, Soft Back: Normal Inspection, No CVA Tenderness, No Vertebral Tenderness Extremity: Normal Capillary Refill, Normal Inspection, Normal Range of Motion, Non Tender, No Calf Tenderness, No Pedal Edema Neurologic/Psychiatric: Alert, Oriented x3, Abnormal Gait, Depressed Affect, Facial Droop (Right), Motor Weakness (Right-sided 3/5) Skin: Normal Color, Warm/Dry Lymphatic: No Adenopathy Results/Procedures Lab Patient resulted labs reviewed. [facility]IM Transfers Therapy Code Descriptions/Definitions Functional [place] Measure: 0=Not Assessed/NA 4=Minimal Assistance 1=Total Assistance 5=Supervision or Setup 2=Maximal Assistance 6=Modified [place] 3=Moderate Assistance 7=Complete IndependenceSCALE: Activities may be completed with or without assistive devices. 1-Loactbhkjo-jesjjbo completes the activity by him/herself with no assistance from a helper. 5-Set-up or Clean-up Assistance-helper sets up or cleans up; patient completes activity. [place] assists only prior to or following the activity. 4-Supervision or Touching Assistance-helper provides verbal cues and/or touching/steadying and/or contact guard assistance as patient completes activity. Assistance may be provided throughout the activity or intermittently. 3-Partial/Moderate Assistance-helper does LESS THAN HALF the effort. [place] lifts, holds or supports trunk or limbs, but provides less than half the effort. 2-Substantial/Maximal Assistance-helper does MORE THAN HALF the effort. [place] lifts or holds trunk or limbs and provides more than half the effort. 5-Lglbrodje-ggjpyx does ALL the effort. Patient does none of the effort to complete the activity. Or, the assistance of 2 or more helpers is required for the patient to complete the activity. If activity was not attempted, code reason: 7-Patient Refused. 9-Not Applicable-not attempted and the patient did not perform the activity before the current illness, exacerbation or injury. 10-Not Attempted due to Environmental Limitations-(lack of equipment, weather restraints, etc.). 88-Not Attempted due to Medical Conditions or Safety Concerns. Roll Left to Right (QC): 6 Sit to Lying (QC): 6 Sit to Stand (QC): 6 Chair/Umd-ys-Sairr Xfer(QC): 6 Car Transfer (QC): 4 Gait Training Does the Patient Walk?: Yes Distance: 300', 150'x2 Walk 10 feet (QC): 5 Walk 50 ft with 2 Turns(QC): 5 Walk 150 ft (QC): 5 Walking 10ft/uneven surface-QC: 4 Gait Persons Needed: 1 Gait Assistive Device: FWW Wheelchair Training Does the Pt Use a Wheelchair?: No Wheel 50 ft with 2 turns (QC): 9 Wheel 150 ft (QC): 9 Stair Training Stair Training: Handrails/: 2 handrails #of Steps: 4 1 Step (curb) (QC): 4 4 Steps (QC): 4 12 Steps (QC): 88 Stairs: Pattern: Step to Balance Picking up an Object (QC): 4 (using ocular care technician) ADL-Treatment Eating (QC): 6 Oral Hygiene (QC): 6 Bathing Location: L Arm, R Arm, L Upper Leg, R Upper Leg, L Lower Leg (including foot), R Lower Leg (including foot), Chest, Abdomen, Buttocks, Pe rineal Area Shower/Bathe Self (QC): 4 (SBA) Upper Body Dressing (QC): 4 Lower Body Dressing (QC): 4 On/Off Footwear (QC): 4 Toileting Hygiene (QC): 4 (supervision) Toilet Transfer (QC): 4 Assessment/Plan Assessment and Plan Assess & Plan/Chief Complaint Assessment: CVA with right-sided weakness Right facial droop Hypertension Hyperlipidemia Depression Anxiety Status post craniotomy Anemia Leukocytosis from steroids Elevated liver enzymes Elevated platelet count Major depression evaluated by behavioral consult 05/06/2021 so added Effexor to her Celexa Plan: Restart home meds and [facility] meds Aggressive rehab Supportive care 05/05/2021: Pain control Aggressive rehab 05/06/2021: Review home meds for necessity Entertain changing Lexapro or adding Effexor 05/07/2021: Still reviewing all of her medication as she requested Supportive care 05/08/2021: Supportive care Effexor (1) Hypertension (2) Right arm weakness (3) Facial droop (4) S/P craniotomy (5) CVA (cerebral vascular accident) (6) GERD (gastroesophageal reflux disease) MASOOD MARTÍNEZ DO May 08, 2021 06:48
[2021-05-08] MEDS: LORATADINE (CLARITIN) 10 MG TAB PO SCH (08:23)
[2021-05-08] MEDS: polyethylene glycoL POWDER 17 GM (MIRALAX) PACK PO SCH ×2 (08:23→20:37)
[2021-05-08] MEDS: VITAMIN D3 25 MCG (1,000 UNITS) TABLET PO SCH (08:23)
[2021-05-08] MEDS: ASPIRIN E.C. 81 MG (ECOTRIN) TAB PO SCH (08:23)
[2021-05-08] MEDS: PANTOPRAZOLE 20 MG TABLET (PROTONIX) PO SCH (08:23)
[2021-05-08] MEDS: OMEGA 3 (FISH OIL) 1000 MG CAP PO SCH (08:23)
[2021-05-08] MEDS: DOCUSATE SODIUM 100 MG (COLACE) CAP PO SCH ×2 (08:23→20:51)
[2021-05-08] MEDS: SENNA W/DOCUSATE (SENOKOT S) TABLET PO SCH ×2 (08:23→20:51)
[2021-05-08] MEDS: LEVETIRACETAM 500 MG PO SCH ×2 (08:26→20:50)
[2021-05-08 08:27] VITALS: BP 100/57
--- NOTE | 2021-05-08 11:30 | Physical Therapy Daily Note ---
PT Daily Note-Current Subjective Pt in recliner upon arrival and agrees to PT. No pain reported Mental Status Patient Orientation: Person, Place, Time, Normal For Age Transfers SCALE: Activities may be completed with or without assistive devices. 4-Ocpodgnkxw-wmmzast completes the activity by him/herself with no assistance from a helper. 5-Set-up or Clean-up Assistance-helper sets up or cleans up; patient completes activity. [place] assists only prior to or following the activity. 4-Supervision or Touching Assistance-helper provides verbal cues and/or touching/steadying and/or contact guard assistance as patient completes activity. Assistance may be provided throughout the activity or intermittently. 3-Partial/Moderate Assistance-helper does LESS THAN HALF the effort. [place] lifts, holds or supports trunk or limbs, but provides less than half the effort. 2-Substantial/Maximal Assistance-helper does MORE THAN HALF the effort. [place] lifts or holds trunk or limbs and provides more than half the effort. 3-Jzahgepfh-bcllbg does ALL the effort. Patient does none of the effort to complete the activity. Or, the assistance of 2 or more helpers is required for the patient to complete the activity. If activity was not attempted, code reason: 7-Patient Refused. 9-Not Applicable-not attempted and the patient did not perform the activity before the current illness, exacerbation or injury. 10-Not Attempted due to Environmental Limitations-(lack of equipment, weather restraints, etc.). 88-Not Attempted due to Medical Conditions or Safety Concerns. Sit to Stand (QC): 4 Gait Training Does the Patient Walk?: Yes Distance: 500' x 1 Walk 10 feet (QC): 5 Walk 50 ft with 2 Turns(QC): 5 Walk 150 ft (QC): 4 Gait Persons Needed: 1 Gait Assistive Device: FWW Get close to objects on R d/t vision loss Exercises Seated Therapy Exercises: Ankle pumps, Long arc quads, Hip flexion Seated Reps: 20 Treatments Pt amb 500' and then TFs back to recliner and performs seated exs. Pt in recliner upon departure of PT w/ all needs met and call light nearby. Assessment Current Status: Good Progress Reqiures skilled verbal cues for hand and foot placement during TFs. Pt amb slowly and gets close to objects of R side. PT Short Term Goals Short Term Goals Time Frame: May 11, 2021 Roll Left & Right: 6 Sit to lyin Lying to sitting on side of be: 6 Sit to stand: 4 (SBA) Chair/gaa-vp-idfzp transfer: 4 (SBA) Walk 10 feet: 4 (SBA) Walk 50 feet with two turns: 4 (SBA) Walk 150 feet: 4 (SBA) PT Detention Goals Investment Specialist Goals PT Detention Goals Time Frame: May 25, 2021 Roll Left & Right (QC): 6 Sit to Lying (QC): 6 Lying-Sitting on Side/Bed(QC): 6 Sit to Stand (QC): 6 Chair/[place] Xfer(QC): 6 Toilet Transfer (QC): 6 Car Transfer (QC): 6 Does the Patient Walk: Yes Walk 10 feet (QC): 6 Walk 50ft with 2 Turns (QC): 6 Walk 150 ft (QC): 6 Walking 10ft on Uneven Surface: 6 1 Step (curb) (QC): 4 (SBA) 4 Steps (QC): 4 (SBA) 12 Steps (QC): 4 (SBA) Picking up an Object (QC): 4 (SBA) Wheel 50 feet with 2 turns (QC: 9 Wheel 150 feet: 9 PT Plan Problem List Problem List: Activity Tolerance, Functional Strength, Safety Treatment/Plan Treatment Plan: Continue Plan of Care Treatment Plan: Bed Mobility, Education, Functional Activity Liang, Functional Strength, Group Therapy, Gait, Safety, Therapeutic Exercise, Transfers Treatment Duration: May 25, 2021 Frequency: At least 5 of 7 days/Wk (IRF) Estimated Hrs Per Day: 1.5 hours per day Patient and/or Family Agrees t: Yes Safety Risks/Education Patient Education: Gait Training, Transfer Techniques Teaching Recipient: Patient Teaching Methods: Discussion Response to Teaching: Return Demonstration Time/GCodes Time In: 900 Time Out: 915 Total Billed Treatment Time: 15 Total Billed Treatment 1, Ex 15min JIN VASQUEZ SYSTEM ADMINISTRATION MANAGER May 08, 2021 11:30
[2021-05-08] MEDS: VENlafaxine XR 37.5 MG (EFFEXOR XR) CAP PO SCH (12:36)
[2021-05-08] MEDS: FAMOTIDINE 20 MG (PEPCID) TABLET PO PRN (17:58)
[2021-05-08 19:53] VITALS: BP 110/59
[2021-05-08 20:51] VITALS: BP 127/72
[2021-05-08] MEDS: meTOprolol TARTRATE 50 MG (LOPRESSOR) TAB PO SCH (20:51)
[2021-05-08] MEDS: ACETAMINOPHEN 500 MG TAB (TYLENOL) PO PRN (20:51)
[2021-05-08] MEDS: amLODIPine 5 MG (NORVASC) TAB PO SCH (20:51)
[2021-05-08] MEDS: FLUTICASONE NASAL SPRAY (FLONASE) 16 GM BTL NS SCH (20:54)
--- NOTE | 2021-05-09 06:54 | PM&R Progress Note ---
Subjective HPI/CC On Admission Date Seen by Provider: May 09, 2021 Time Seen by Provider: 12:00 Subjective/Events-last exam 05/09/21: Patient doing a lot better Still depressed Check meds labs No falls No pain 05/08/2021: Patient very depressed Effexor started today to add to Celexa to give her a boost I talked to her about her Lipitor dose Checked meds and labs 05/07/2021: Patient doing well No pain is reported Will review a change to her Lexapro Check meds labs Major depression diagnosed by [facility] 05/06/2021: Pt is doing well Took a shower Right sided weakness improved Depression screening for behavioral health consult will be ordered due to daughter's concern Checked meds and labs Overall has no concerns 05/05/2021: Pt is doing very well Working on stationary bike Checked meds and labs Hemoglobin was 8.8 [place] [address] on steroids Checked bp Overall feels really good Review of Systems General: Fatigue, Malaise Objective Exam Vital Signs Vital Signs Date Time Temp Pulse Resp B/P (MAP) Pulse Ox O2 Delivery O2 Flow Rate FiO2 05/09/21 21:00 97 Room Air 05/09/21 19:43 36.5 77 16 116/56 (76) Capillary Refill : General Appearance: No Apparent Distress, WD/WN, Chronically ill HEENT: PERRL/EOMI, Normal ENT Inspection, Pharynx Normal Neck: Full Range of Motion, Normal Inspection, Non Tender, Supple, Carotid Bruit Respiratory: Chest Non Tender, Lungs Clear, Normal Breath Sounds, No Accessory Muscle Use, No Respiratory Distress Cardiovascular: Regular Rate, Rhythm, No Edema, No Gallop, No JVD, No Murmur, Normal Peripheral Pulses Gastrointestinal: Normal Bowel Sounds, No Organomegaly, No Pulsatile Mass, Non Tender, Soft Back: Normal Inspection, No CVA Tenderness, No Vertebral Tenderness Extremity: Normal Capillary Refill, Normal Inspection, Normal Range of Motion, Non Tender, No Calf Tenderness, No Pedal Edema Neurologic/Psychiatric: Alert, Oriented x3, Abnormal Gait, Depressed Affect, Facial Droop (Right), Motor Weakness (Right-sided 3/5) Skin: Normal Color, Warm/Dry Lymphatic: No Adenopathy Results/Procedures Lab Patient resulted labs reviewed. FIM Transfers Therapy Code Descriptions/Definitions Functional [place] Measure: 0=Not Assessed/NA 4=Minimal Assistance 1=Total Assistance 5=Supervision or Setup 2=Maximal Assistance 6=Modified [place] 3=Moderate Assistance 7=Complete IndependenceSCALE: Activities may be completed with or without assistive devices. 0-Qbtmowntvq-czyasho completes the activity by him/herself with no assistance from a helper. 5-Set-up or Clean-up Assistance-helper sets up or cleans up; patient completes activity. [place] assists only prior to or following the activity. 4-Supervision or Touching Assistance-helper provides verbal cues and/or touching/steadying and/or contact guard assistance as patient completes activity. Assistance may be provided throughout the activity or intermittently. 3-Partial/Moderate Assistance-helper does LESS THAN HALF the effort. [place] lifts, holds or supports trunk or limbs, but provides less than half the effort. 2-Substantial/Maximal Assistance-helper does MORE THAN HALF the effort. [place] lifts or holds trunk or limbs and provides more than half the effort. 9-Rrtqxuxon-jlawtf does ALL the effort. Patient does none of the effort to complete the activity. Or, the assistance of 2 or more helpers is required for the patient to complete the activity. If activity was not attempted, code reason: 7-Patient Refused. 9-Not Applicable-not attempted and the patient did not perform the activity before the current illness, exacerbation or injury. 10-Not Attempted due to Environmental Limitations-(lack of equipment, weather restraints, etc.). 88-Not Attempted due to Medical Conditions or Safety Concerns. Roll Left to Right (QC): 6 Sit to Lying (QC): 6 Sit to Stand (QC): 4 Chair/Hnz-ij-Vxohb Xfer(QC): 6 Car Transfer (QC): 4 Gait Training Does the Patient Walk?: Yes Distance: 500' x 1 Walk 10 feet (QC): 5 Walk 50 ft with 2 Turns(QC): 5 Walk 150 ft (QC): 4 Walking 10ft/uneven surface-QC: 4 Gait Persons Needed: 1 Gait Assistive Device: FWW Wheelchair Training Does the Pt Use a Wheelchair?: No Wheel 50 ft with 2 turns (QC): 9 Wheel 150 ft (QC): 9 Stair Training Stair Training: Handrails/: 2 handrails #of Steps: 4 1 Step (curb) (QC): 4 4 Steps (QC): 4 12 Steps (QC): 88 Stairs: Pattern: Step to Balance Picking up an Object (QC): 4 (using loin puller) ADL-Treatment Eating (QC): 6 Oral Hygiene (QC): 6 Bathing Location: L Arm, R Arm, L Upper Leg, R Upper Leg, L Lower Leg (includi ng foot), R Lower Leg (including foot), Chest, Abdomen, Buttocks, Perineal Area Shower/Bathe Self (QC): 4 (SBA) Upper Body Dressing (QC): 4 Lower Body Dressing (QC): 4 On/Off Footwear (QC): 4 Toileting Hygiene (QC): 4 (supervision) Toilet Transfer (QC): 4 Assessment/Plan Assessment and Plan Assess & Plan/Chief Complaint Assessment: CVA with right-sided weakness Right facial droop Hypertension Hyperlipidemia Depression Anxiety Status post craniotomy Anemia Leukocytosis from steroids Elevated liver enzymes Elevated platelet count Major depression evaluated by behavioral consult 05/06/2021 so added Effexor to her Celexa Plan: Restart home meds and [facility] meds Aggressive rehab Supportive care 05/05/2021: Pain control Aggressive rehab 05/06/2021: Review home meds for necessity Entertain changing Lexapro or adding Effexor 05/07/2021: Still reviewing all of her medication as she requested Supportive care 05/08/2021: Supportive care Effexor 05/09/2021: Depression treatment Supportive care (1) Hypertension (2) Right arm weakness (3) Facial droop (4) S/P craniotomy (5) CVA (cerebral vascular accident) (6) GERD (gastroesophageal reflux disease) MASOOD MARTÍNEZ DO May 09, 2021 06:54
[2021-05-09] MEDS: VENlafaxine XR 37.5 MG (EFFEXOR XR) CAP PO SCH (06:57)
[2021-05-09 07:30] VITALS: BP 124/60
[2021-05-09] MEDS: VITAMIN D3 25 MCG (1,000 UNITS) TABLET PO SCH (08:02)
[2021-05-09] MEDS: OMEGA 3 (FISH OIL) 1000 MG CAP PO SCH (08:02)
[2021-05-09] MEDS: LORATADINE (CLARITIN) 10 MG TAB PO SCH (08:02)
[2021-05-09] MEDS: ASPIRIN E.C. 81 MG (ECOTRIN) TAB PO SCH (08:02)
[2021-05-09] MEDS: PANTOPRAZOLE 20 MG TABLET (PROTONIX) PO SCH (08:02)
[2021-05-09] MEDS: LEVETIRACETAM 500 MG PO SCH ×2 (08:03→21:15)
[2021-05-09] MEDS: polyethylene glycoL POWDER 17 GM (MIRALAX) PACK PO SCH ×2 (08:20→21:17)
[2021-05-09] MEDS: SENNA W/DOCUSATE (SENOKOT S) TABLET PO SCH ×2 (08:20→21:17)
[2021-05-09] MEDS: DOCUSATE SODIUM 100 MG (COLACE) CAP PO SCH ×2 (08:20→21:14)
[2021-05-09 19:43] VITALS: BP 116/56
[2021-05-09] MEDS: amLODIPine 5 MG (NORVASC) TAB PO SCH (21:14)
[2021-05-09] MEDS: meTOprolol TARTRATE 50 MG (LOPRESSOR) TAB PO SCH (21:14)
[2021-05-09] MEDS: ACETAMINOPHEN 500 MG TAB (TYLENOL) PO PRN (21:14)
[2021-05-09] MEDS: FLUTICASONE NASAL SPRAY (FLONASE) 16 GM BTL NS SCH (21:15)
[2021-05-10] MEDS: VENlafaxine XR 37.5 MG (EFFEXOR XR) CAP PO SCH (06:39)
[2021-05-10 06:43] LABS: BASOPHILS % (AUTO) 0 % (0-10); EOSINOPHILS # (AUTO) 0.5 10^3/uL (0.0-0.3); EOSINOPHILS % (AUTO) 3 % (0-10); HEMATOCRIT 29 % (35-52); HEMOGLOBIN 8.6 g/dL (11.5-16.0); LYMPHOCYTES # (AUTO) 2.5 10^3/uL (1.0-4.0); LYMPHOCYTES % (AUTO) 15 % (12-44); MEAN CORPUSCULAR HEMOGLOBIN 27 pg (25-34); MEAN CORPUSCULAR HGB CONC 30 g/dL (32-36); MEAN CORPUSCULAR VOLUME 91 fL (80-99); MEAN PLATELET VOLUME 11.2 fL (9.0-12.2); MONOCYTES # (AUTO) 1.4 10^3/uL (0.0-1.0); MONOCYTES % (AUTO) 8 % (0-12); NEUTROPHILS # (AUTO) 11.2 10^3/uL (1.8-7.8); NEUTROPHILS % (AUTO) 67 % (42-75); PLATELET COUNT 424 10^3/uL (130-400); WHITE BLOOD COUNT 16.8 10^3/uL (4.3-11.0)
[2021-05-10 06:54] LABS: ALBUMIN 3.2 GM/DL (3.2-4.5); POTASSIUM 4.3 MMOL/L (3.6-5.0)
[2021-05-10 06:55] LABS: CALCIUM 7.8 MG/DL (8.5-10.1)
[2021-05-10 06:57] LABS: TOTAL PROTEIN 5.5 GM/DL (6.4-8.2)
[2021-05-10 06:58] LABS: BILIRUBIN,TOTAL 0.5 MG/DL (0.1-1.0)
[2021-05-10 07:00] LABS: CREATININE SERUM 0.63 MG/DL (0.60-1.30)
--- NOTE | 2021-05-10 07:33 | Occupational Ther Daily Note ---
OT Current Status-Daily Note Subjective Pt alert, sitting in recliner. Pt agrees to therapy. No c/o pain. Co-treat with PT([id number]), skills of 2 clinicians required to decrease fall risk during higher level balance tasks. Mental Status/Objective Patient Orientation: Person, Place, Time, Situation ADL-Treatment Pt agrees to shower. Pt independent with eating. Set up for dressing and bathing, pt is able to gather supples though when sequence is interrupted, pt has difficulty problem solving new situation. Safety awareness issues during rote tasks when pt has a certain way of completing task without awareness of issues that have developed since hospital stay, ie problem solving deficits. Independent with eating, oral care and toileting. Pt requires multiple recovery breaks throughout session. After session, pt sitting in recliner with call light/phone in reach. All needs met in room. Therapy Code Descriptions/Definitions Functional [place] Measure: 0=Not Assessed/NA 4=Minimal Assistance 1=Total Assistance 5=Supervision or Setup 2=Maximal Assistance 6=Modified [place] 3=Moderate Assistance 7=Complete IndependenceSCALE: Activities may be completed with or without assistive devices. 6-Zrehzgcdes-bwcilar completes the activity by him/herself with no assistance from a helper. 5-Set-up or Clean-up Assistance-helper sets up or cleans up; patient completes activity. [place] assists only prior to or following the activity. 4-Supervision or Touching Assistance-helper provides verbal cues and/or touching/steadying and/or contact guard assistance as patient completes activity. Assistance may be provided throughout the activity or intermittently. 3-Partial/Moderate Assistance-helper does LESS THAN HALF the effort. [place] lifts, holds or supports trunk or limbs, but provides less than half the effort. 2-Substantial/Maximal Assistance-helper does MORE THAN HALF the effort. [place] lifts or holds trunk or limbs and provides more than half the effort. 2-Zaclbbddr-xzggsd does ALL the effort. Patient does none of the effort to complete the activity. Or, the assistance of 2 or more helpers is required for the patient to complete the activity. If activity was not attempted, code reason: 7-Patient Refused. 9-Not Applicable-not attempted and the patient did not perform the activity before the current illness, exacerbation or injury. 10-Not Attempted due to Environmental Limitations-(lack of equipment, weather restraints, etc.). 88-Not Attempted due to Medical Conditions or Safety Concerns. Eating (QC): 6 Oral Hygiene (QC): 6 Shower/Bathe Self (QC): 5 Upper Body Dressing (QC): 5 Lower Body Dressing (QC): 5 On/Off Footwear: 5 Toileting Hygiene (QC): 6 Toilet Transfer (QC): 6 Pt is able to complete all tasks by self when focusing on mobility. Though requires assistance with problem solving when task is interrupted due to some type of obstacle that requires problem solving skills. OT Short Term Goals Short Term Goals Time Frame: May 12, 2021 Toileting hygiene: 4 Upper body dressin Lower body dressin OT Tmd Teacher Assistant Goals Residential Goals Time Frame: May 28, 2021 Eating (QC): 6 (met) Oral Hygiene (QC): 6 (met) Toileting Hygiene (QC): 6 (met) Shower/Bathe Self (QC): 6 (mnot met) Upper Body Dressing (QC): 6 (not met) Lower Body Dressing (QC): 6 (not met) On/Off Footwear (QC): 6 (not met) Additional Goals: 1-Demonstrate ADL Tasks, 2-Verbalize Understanding, 3- ImproveStrength/Liang 1=Demonstrate adherence to instructed precautions during ADL tasks. 2=Patient will verbalize/demonstrate understanding of assistive devices/modifications for ADL. 3=Patient will improve strength/tolerance for activity to enable patient to perform ADL's. OT Education/Plan Problem List/Assessment Assessment: Decreased Activ Tolerance, Impaired Cognition Discharge Recommendations Plan/Recommendations: Continue POC Equpiment Recommendations-D/C: Bath Chair Treatment Plan/Plan of Care Patient would benefit from OT for education, treatment and training to promote independence in ADL's, mobility, safety and/or upper extremity function for ADL's. Plan of Care: ADL Retraining, Functional Mobility, Group Exercise/Act as Ind, UE Funct Exercise/Act Treatment Duration: May 28, 2021 Frequency: At least 5 of 7 days/Wk (IRF) Estimated Hrs Per Day: 1.5 hours per day Agreement: Yes Rehab Potential: Fair Time/GCodes Start Time: 07:15 Stop Time: 08:30 Total Time Billed (hr/min): 75 Billed Treatment Time 1 visit-ADL 5 (75 min) co-treat with PT [id number], individual [id number] ELIDIA SAHA May 10, 2021 07:33
[2021-05-10 07:39] VITALS: BP 134/63
--- NOTE | 2021-05-10 07:46 | PM&R Progress Note ---
Subjective HPI/CC On Admission Date Seen by Provider: May 10, 2021 Time Seen by Provider: 09:00 Subjective/Events-last exam 05/10/2021: Pt doing really well Has a fluid collection in the forehead from the craniotomy incision Checked meds and labs Overall doing well Labs remain stable 05/09/21: Patient doing a lot better Still depressed Check meds labs No falls No pain 05/08/2021: Patient very depressed Effexor started today to add to Celexa to give her a boost I talked to her about her Lipitor dose Checked meds and labs 05/07/2021: Patient doing well No pain is reported Will review a change to her Lexapro Check meds labs Major depression diagnosed by [facility] 05/06/2021: Pt is doing well Took a shower Right sided weakness improved Depression screening for behavioral health consult will be ordered due to daughter's concern Checked meds and labs Overall has no concerns 05/05/2021: Pt is doing very well Working on stationary bike Checked meds and labs Hemoglobin was 8.8 [place] 35496 on steroids Checked bp Overall feels really good Review of Systems General: Fatigue, Malaise Objective Exam Vital Signs Vital Signs Date Time Temp Pulse Resp B/P (MAP) Pulse Ox O2 Delivery O2 Flow Rate FiO2 05/10/21 21:00 98 Room Air 05/10/21 20:00 36.6 79 18 146/69 (94) Capillary Refill : General Appearance: No Apparent Distress, WD/WN, Chronically ill HEENT: PERRL/EOMI, Normal ENT Inspection, Pharynx Normal Neck: Full Range of Motion, Normal Inspection, Non Tender, Supple, Carotid Bruit Respiratory: Chest Non Tender, Lungs Clear, Normal Breath Sounds, No Accessory Muscle Use, No Respiratory Distress Cardiovascular: Regular Rate, Rhythm, No Edema, No Gallop, No JVD, No Murmur, Normal Peripheral Pulses Gastrointestinal: Normal Bowel Sounds, No Organomegaly, No Pulsatile Mass, Non Tender, Soft Back: Normal Inspection, No CVA Tenderness, No Vertebral Tenderness Extremity: Normal Capillary Refill, Normal Inspection, Normal Range of Motion, Non Tender, No Calf Tenderness, No Pedal Edema Neurologic/Psychiatric: Alert, Oriented x3, Abnormal Gait, Depressed Affect, Facial Droop (Right), Motor Weakness (Right-sided 3/5) Skin: Normal Color, Warm/Dry Lymphatic: No Adenopathy Results/Procedures Lab Laboratory Tests 05/10/21 06:27 Patient resulted labs reviewed. FIM Transfers Therapy Code Descriptions/Definitions Functional [place] Measure: 0=Not Assessed/NA 4=Minimal Assistance 1=Total Assistance 5=Supervision or Setup 2=Maximal Assistance 6=Modified [place] 3=Moderate Assistance 7=Complete IndependenceSCALE: Activities may be completed with or without assistive devices. 3-Krkvfrvobx-axlokej completes the activity by him/herself with no assistance from a helper. 5-Set-up or Clean-up Assistance-helper sets up or cleans up; patient completes activity. [place] assists only prior to or following the activity. 4-Supervision or Touching Assistance-helper provides verbal cues and/or touching/steadying and/or contact guard assistance as patient completes activity. Assistance may be provided throughout the activity or intermittently. 3-Partial/Moderate Assistance-helper does LESS THAN HALF the effort. [place] lifts, holds or supports trunk or limbs, but provides less than half the effort. 2-Substantial/Maximal Assistance-helper does MORE THAN HALF the effort. [place] lifts or holds trunk or limbs and provides more than half the effort. 4-Ikuylffxh-qkkztp does ALL the effort. Patient does none of the effort to complete the activity. Or, the assistance of 2 or more helpers is required for the patient to complete the activity. If activity was not attempted, code reason: 7-Patient Refused. 9-Not Applicable-not attempted and the patient did not perform the activity before the current illness, exacerbation or injury. 10-Not Attempted due to Environmental Limitations-(lack of equipment, weather restraints, etc.). 88-Not Attempted due to Medical Conditions or Safety Concerns. Roll Left to Right (QC): 6 Sit to Lying (QC): 6 Sit to Stand (QC): 4 Chair/Oxk-lg-Alvge Xfer(QC): 6 Car Transfer (QC): 4 Gait Training Does the Patient Walk?: Yes Distance: 500' x 1 Walk 10 feet (QC): 5 Walk 50 ft with 2 Turns(QC): 5 Walk 150 ft (QC): 4 Walking 10ft/uneven surface-QC: 4 Gait Persons Needed: 1 Gait Assistive Device: FWW Wheelchair Training Does the Pt Use a Wheelchair?: No Wheel 50 ft with 2 turns (QC): 9 Wheel 150 ft (QC): 9 Stair Training Stair Training: Handrails/: 2 handrails #of Steps: 4 1 Step (curb) (QC): 4 4 Steps (QC): 4 12 Steps (QC): 88 Stairs: Pattern: Step to Balance Picking up an Object (QC): 4 (using donor relations coordinator) ADL-Treatment Eating (QC): 6 Oral Hygiene (QC): 6 Bathing Location: L Arm, R Arm, L Upper Leg, R Upper Leg, L Lower Leg (including foot), R Lower Leg (including foot), Chest, Abdomen, Buttocks, Perineal Area Shower/Bathe Self (QC): 4 (SBA) Upper Body Dressing (QC): 4 Lower Body Dressing (QC): 4 On/Off Footwear (QC): 4 Toileting Hygiene (QC): 4 (supervision) Toilet Transfer (QC): 4 Assessment/Plan Assessment and Plan Assess & Plan/Chief Complaint Assessment: CVA with right-sided weakness Right facial droop Hypertension Hyperlipidemia Depression Anxiety Status post craniotomy Anemia Leukocytosis from steroids Elevated liver enzymes Elevated platelet count Major depression evaluated by behavioral consult 05/06/2021 so added Effexor to her Celexa Plan: Restart home meds and [facility] meds Aggressive rehab Supportive care 05/05/2021: Pain control Aggressive rehab 05/06/2021: Review home meds for necessity Entertain changing Lexapro or adding Effexor 05/07/2021: Still reviewing all of her medication as she requested Supportive care 05/08/2021: Supportive care Effexor 05/09/2021: Depression treatment Supportive care 05/10/2021: Increase Effexor Supportive care (1) Hypertension (2) Right arm weakness (3) Facial droop (4) S/P craniotomy (5) CVA (cerebral vascular accident) (6) GERD (gastroesophageal reflux disease) MASOOD MARTÍNEZ DO May 10, 2021 07:46
--- NOTE | 2021-05-10 08:54 | Physical Therapy Daily Note ---
PT Daily Note-Current Subjective Patient in restroom pre tx, already working with OT, has no complaints of pain, agrees to PT. Will be co-treating with OT due to poor patient mobility, strength, endurance, increased fatigue, coordinate UE and LE during activity, safety and reduce risk of falls. Appearance Patient in recliner post tx with nurse call, phone, tray, all needs met. Mental Status Patient Orientation: Person, Place, Situation Transfers SCALE: Activities may be completed with or without assistive devices. 6-Tgvndwagod-uitlcuy completes the activity by him/herself with no assistance from a helper. 5-Set-up or Clean-up Assistance-helper sets up or cleans up; patient completes activity. [place] assists only prior to or following the activity. 4-Supervision or Touching Assistance-helper provides verbal cues and/or touching/steadying and/or contact guard assistance as patient completes activity. Assistance may be provided throughout the activity or intermittently. 3-Partial/Moderate Assistance-helper does LESS THAN HALF the effort. [place] lifts, holds or supports trunk or limbs, but provides less than half the effort. 2-Substantial/Maximal Assistance-helper does MORE THAN HALF the effort. [place] lifts or holds trunk or limbs and provides more than half the effort. 4-Vwbpevxwh-ixkrjp does ALL the effort. Patient does none of the effort to complete the activity. Or, the assistance of 2 or more helpers is required for the patient to complete the activity. If activity was not attempted, code reason: 7-Patient Refused. 9-Not Applicable-not attempted and the patient did not perform the activity before the current illness, exacerbation or injury. 10-Not Attempted due to Environmental Limitations-(lack of equipment, weather restraints, etc.). 88-Not Attempted due to Medical Conditions or Safety Concerns. Roll Left & Right (QC): 6 Sit to Lying (QC): 6 Lying to Sitting/Side of Bed(Q: 6 Sit to Stand (QC): 6 Chair/Fdb-yi-Qvwhx Xfer(QC): 6 Toilet Transfer (QC): 6 Car Transfer (QC): 6 Patient performs rolling and supine <-> sit with independence, sit <-> stand and transfers with independence, independent with car transfer. Co-treated with OT to finish up shower and bathing, PT worked on safety and positioning, patient was able to bend over and pickup her shoe during dressing with SBA. Patient was extremely fatigued after shower and dressing and needed a significant rest break. Gait Training Distance: 120', 300' Walk 10 feet (QC): 6 Walk 50 ft with 2 Turns(QC): 6 Walk 150 ft (QC): 6 Walking 10ft/uneven surface-QC: 4 Gait Assistive Device: FWW Patient can ambulate 300' with a rolling walker with independence (including 50' with at least 2 turns of 90 degrees but needs SBA to ambulate 10' over an uneven surface). Gait is slow but steady. Stair Training Stair Training: Handrails/: 2 handrails #of Steps: 12 1 Step (curb) (QC): 4 4 Steps (QC): 4 12 Steps (QC): 4 Stairs: Pattern: Reciprocal Patient can go up and down 12 steps using 2 handrails with SBA. She does need cues for safety, her right heel tends to catch on the step when descending Balance Picking up an Object (QC): 4 Treatments PT performed bed mobility and transfers, ambulation, stair training, gait training, standing and safety during bathing/dressing, OT performed bathing/dressing, UE positioning and safety during activity Assessment Current Status: Fair Progress Patient still needs SBA for more difficult activities PT Short Term Goals Short Term Goals Time Frame: May 11, 2021 Roll Left & Right: 6 Sit to lyin Lying to sitting on side of be: 6 Sit to stand: 4 (SBA) Chair/frn-jw-isamo transfer: 4 (SBA) Walk 10 feet: 4 (SBA) Walk 50 feet with two turns: 4 (SBA) Walk 150 feet: 4 (SBA) PT Surgical Garment Inspector Goals Surgical Garment Inspector Goals PT [facility] Goals Time Frame: May 25, 2021 Roll Left & Right (QC): 6 Sit to Lying (QC): 6 Lying-Sitting on Side/Bed(QC): 6 Sit to Stand (QC): 6 Chair/Jqb-ht-Zzhmf Xfer(QC): 6 Toilet Transfer (QC): 6 Car Transfer (QC): 6 Does the Patient Walk: Yes Walk 10 feet (QC): 6 Walk 50ft with 2 Turns (QC): 6 Walk 150 ft (QC): 6 Walking 10ft on Uneven Surface: 6 1 Step (curb) (QC): 4 (SBA) 4 Steps (QC): 4 (SBA) 12 Steps (QC): 4 (SBA) Picking up an Object (QC): 4 (SBA) Wheel 50 feet with 2 turns (QC: 9 Wheel 150 feet: 9 PT Plan Problem List Problem List: Activity Tolerance, Functional Strength, Safety, Balance, Gait, Transfer, ROM Treatment/Plan Treatment Plan: Continue Plan of Care Treatment Plan: Bed Mobility, Education, Functional Activity Liang, Functional Strength, Group Therapy, Gait, Safety, Therapeutic Exercise, Transfers Treatment Duration: May 25, 2021 Frequency: At least 5 of 7 days/Wk (IRF) Estimated Hrs Per Day: 1.5 hours per day Patient and/or Family Agrees t: Yes Safety Risks/Education Patient Education: Gait Training, Transfer Techniques, Steps, Correct Positioning, Safety Issues Teaching Recipient: Patient Teaching Methods: Demonstration, Discussion Response to Teaching: Reinforcement Needed Time/GCodes Time In: 0800 Time Out: 0900 Total Billed Treatment Time: 60 Total Billed Treatment 1 visit FA 60' co-treated with OT from [id number] ESMER LAWSON PT May 10, 2021 08:54
[2021-05-10] MEDS: VITAMIN D3 25 MCG (1,000 UNITS) TABLET PO SCH (08:55)
[2021-05-10] MEDS: LEVETIRACETAM 500 MG PO SCH (08:55)
[2021-05-10] MEDS: OMEGA 3 (FISH OIL) 1000 MG CAP PO SCH (08:56)
[2021-05-10] MEDS: LORATADINE (CLARITIN) 10 MG TAB PO SCH (08:56)
[2021-05-10] MEDS: DOCUSATE SODIUM 100 MG (COLACE) CAP PO SCH ×2 (08:56→20:38)
[2021-05-10] MEDS: ASPIRIN E.C. 81 MG (ECOTRIN) TAB PO SCH (08:56)
[2021-05-10] MEDS: PANTOPRAZOLE 20 MG TABLET (PROTONIX) PO SCH (08:56)
[2021-05-10] MEDS: SENNA W/DOCUSATE (SENOKOT S) TABLET PO SCH ×2 (08:58→20:38)
[2021-05-10] MEDS: polyethylene glycoL POWDER 17 GM (MIRALAX) PACK PO SCH ×2 (08:58→20:38)
--- NOTE | 2021-05-10 11:59 | Physical Therapy Daily Note ---
PT Daily Note-Current Subjective Patient in recliner pre tx, agrees to PT, has no complaints of pain. Appearance Patient in recliner post tx with nurse call, phone, tray, all needs met. Mental Status Patient Orientation: Person, Place, Situation Transfers SCALE: Activities may be completed with or without assistive devices. 4-Cjpufqzogn-vcqjlne completes the activity by him/herself with no assistance from a helper. 5-Set-up or Clean-up Assistance-helper sets up or cleans up; patient completes activity. [place] assists only prior to or following the activity. 4-Supervision or Touching Assistance-helper provides verbal cues and/or michelle imelda/steadying and/or contact guard assistance as patient completes activity. Assistance may be provided throughout the activity or intermittently. 3-Partial/Moderate Assistance-helper does LESS THAN HALF the effort. [place] lifts, holds or supports trunk or limbs, but provides less than half the effort. 2-Substantial/Maximal Assistance-helper does MORE THAN HALF the effort. [place] lifts or holds trunk or limbs and provides more than half the effort. 7-Nuepyvhcq-nolwje does ALL the effort. Patient does none of the effort to complete the activity. Or, the assistance of 2 or more helpers is required for the patient to complete the activity. If activity was not attempted, code reason: 7-Patient Refused. 9-Not Applicable-not attempted and the patient did not perform the activity before the current illness, exacerbation or injury. 10-Not Attempted due to Environmental Limitations-(lack of equipment, weather restraints, etc.). 88-Not Attempted due to Medical Conditions or Safety Concerns. Sit to Stand (QC): 6 Chair/Vrf-ip-Xstmn Xfer(QC): 6 Gait Training Distance: 500'x2 Walk 10 feet (QC): 6 Walk 50 ft with 2 Turns(QC): 6 Walk 150 ft (QC): 6 Gait Assistive Device: FWW slow but steady ambulation, rest break between Treatments ambulation Assessment Current Status: Fair Progress improving endurance PT Short Term Goals Short Term Goals Time Frame: May 11, 2021 Roll Left & Right: 6 Sit to lyin Lying to sitting on side of be: 6 Sit to stand: 4 (SBA) Chair/kfj-pp-cowew transfer: 4 (SBA) Walk 10 feet: 4 (SBA) Walk 50 feet with two turns: 4 (SBA) Walk 150 feet: 4 (SBA) PT Research Chef Goals Nursing Home Goals PT Research Chef Goals Time Frame: May 25, 2021 Roll Left & Right (QC): 6 Sit to Lying (QC): 6 Lying-Sitting on Side/Bed(QC): 6 Sit to Stand (QC): 6 Chair/Tgs-vc-Ilybg Xfer(QC): 6 Toilet Transfer (QC): 6 Car Transfer (QC): 6 Does the Patient Walk: Yes Walk 10 feet (QC): 6 Walk 50ft with 2 Turns (QC): 6 Walk 150 ft (QC): 6 Walking 10ft on Uneven Surface: 6 1 Step (curb) (QC): 4 (SBA) 4 Steps (QC): 4 (SBA) 12 Steps (QC): 4 (SBA) Picking up an Object (QC): 4 (SBA) Wheel 50 feet with 2 turns (QC: 9 Wheel 150 feet: 9 PT Plan Problem List Problem List: Activity Tolerance, Functional Strength, Safety, Balance, Gait, Transfer, Bed Mobility, ROM Treatment/Plan Treatment Plan: Continue Plan of Care Treatment Plan: Bed Mobility, Education, Functional Activity Liang, Functional Strength, Group Therapy, Gait, Safety, Therapeutic Exercise, Transfers Treatment Duration: May 25, 2021 Frequency: At least 5 of 7 days/Wk (IRF) Estimated Hrs Per Day: 1.5 hours per day Patient and/or Family Agrees t: Yes Safety Risks/Education Patient Education: Gait Training, Transfer Techniques, Correct Positioning, Safety Issues Teaching Recipient: Patient Teaching Methods: Demonstration, Discussion Response to Teaching: Reinforcement Needed Time/GCodes Time In: 1140 Time Out: 1155 Total Billed Treatment Time: 15 Total Billed Treatment 1 visit GT 15' ESMER LAWSON PT May 10, 2021 11:59
--- NOTE | 2021-05-10 13:11 | Speech Therapy Daily Note ---
Speech Daily Progress Note Subjective Date Seen by Provider: May 10, 2021 Time Seen by Provider: 09:00 The patient was seated upright in her recliner upon entrance to her room by the clinician. The patient greeted the clinician appropriately and was agreeable to participation in the cognitive linguistic treatment session. Objective - Orientation: The patient is independently oriented to self, city, location, room number, month, date, day of week, and year. - Word--Finding: The patient was provided a specific category and a specific letter. The patient was asked to provide a word that "fits into" the specific category and begins with the provided letter. With moderate clinician cueing, including repetition and prolonged response time, the patient demonstrated high accuracy with the task. Expression of Ideas/Wants: Exhibits (3) Understanding Verbal Content: Understands (4) Brief Interview-Mental Status: Yes Repetition of Three Words: Three (3) Temporal Orientation: Year: Correct (3) Temporal Orientation: Month: Accurate within 5 days(2) Temporal Orientation: Day: Correct (1) Recall : Wear to say "Sock": Yes, no cue required (2) Recall : Color: Yes, no cue required (2) Recall : Bed: Yes, no cue required (2) Memory/Recall Ability: Current season, That he or she is in a hsp/hsp unit Assessment Assessment Current Status: Good Progress Treatment Plan Continue Plan of Care Speech Short Term Goals Short Term Goals Short Term Goals 1. The patient will demonstrate word-finding strategies with 90% accuracy, independently. 2. The patient will demonstrate 90% accuracy with executive function tasks, independently. Speech Group Home Goals [employer] Goals 1. The patient will demonstrate increased functional language and cognition for safe discharge to the least restricted environment. Speech-Plan Treatment Plan Speech Therapy Treatment Plan: Continue Plan of Care Treatment Duration: May 05, 2021 Frequency: 5 times per week Estimated Hrs Per Day: .5 hour per day Rehab Potential: Fair Pt/Family Agrees to Plan: Yes Safety Risks/Education Teaching Recipient: Patient Teaching Methods: Demonstration, Discussion Response to Teaching: Return Demonstration, Reinforcement Needed Education Topics Provided: Word Finding Strategies Time Speech Therapy Time In: 09:00 Speech Therapy Time Out: 09:30 Total Billed Time: 30 Billed Treatment Time MIKA Arguello [facility] May 10, 2021 13:11
[2021-05-10 20:00] VITALS: BP 146/69
[2021-05-10] MEDS: ACETAMINOPHEN 500 MG TAB (TYLENOL) PO PRN (20:20)
[2021-05-10] MEDS: amLODIPine 5 MG (NORVASC) TAB PO SCH (20:20)
[2021-05-10] MEDS: meTOprolol TARTRATE 50 MG (LOPRESSOR) TAB PO SCH (20:20)
[2021-05-10] MEDS: FLUTICASONE NASAL SPRAY (FLONASE) 16 GM BTL NS SCH (20:22)
--- NOTE | 2021-05-11 06:08 | PM&R Progress Note ---
Subjective HPI/CC On Admission Date Seen by Provider: May 11, 2021 Time Seen by Provider: 09:00 Subjective/Events-last exam 05/11/2021: Patient ready for discharge 05/10/2021: Pt doing really well Has a fluid collection in the forehead from the craniotomy incision Checked meds and labs Overall doing well Labs remain stable 05/09/21: Patient doing a lot better Still depressed Check meds labs No falls No pain 05/08/2021: Patient very depressed Effexor started today to add to Celexa to give her a boost I talked to her about her Lipitor dose Checked meds and labs 05/07/2021: Patient doing well No pain is reported Will review a change to her Lexapro Check meds labs Major depression diagnosed by [facility] 05/06/2021: Pt is doing well Took a shower Right sided weakness improved Depression screening for behavioral health consult will be ordered due to daughter's concern Checked meds and labs Overall has no concerns 05/05/2021: Pt is doing very well Working on stationary bike Checked meds and labs Hemoglobin was 8.8 [place] [address] on steroids Checked bp Overall feels really good Review of Systems General: Fatigue Neurological: Weakness Objective Exam Vital Signs Vital Signs Date Time Temp Pulse Resp B/P (MAP) Pulse Ox O2 Delivery O2 Flow Rate FiO2 05/11/21 11:00 36.4 60 16 123/60 96 Room Air Capillary Refill : General Appearance: No Apparent Distress, WD/WN, Chronically ill HEENT: PERRL/EOMI, Normal ENT Inspection, Pharynx Normal Neck: Full Range of Motion, Normal Inspection, Non Tender, Supple, Carotid Bruit Respiratory: Chest Non Tender, Lungs Clear, Normal Breath Sounds, No Accessory Muscle Use, No Respiratory Distress Cardiovascular: Regular Rate, Rhythm, No Edema, No Gallop, No JVD, No Murmur, Normal Peripheral Pulses Gastrointestinal: Normal Bowel Sounds, No Organomegaly, No Pulsatile Mass, Non Tender, Soft Back: Normal Inspection, No CVA Tenderness, No Vertebral Tenderness Extremity: Normal Capillary Refill, Normal Inspection, Normal Range of Motion, Non Tender, No Calf Tenderness, No Pedal Edema Neurologic/Psychiatric: Alert, Oriented x3, Abnormal Gait, Depressed Affect, Facial Droop (Right), Motor Weakness (Right-sided 3/5) Skin: Normal Color, Warm/Dry Lymphatic: No Adenopathy Results/Procedures Lab Patient resulted labs reviewed. FIM Transfers Therapy Code Descriptions/Definitions Functional [place] Measure: 0=Not Assessed/NA 4=Minimal Assistance 1=Total Assistance 5=Supervision or Setup 2=Maximal Assistance 6=Modified [place] 3=Moderate Assistance 7=Complete IndependenceSCALE: Activities may be completed with or without assistive devices. 5-Wdtfhzewmx-tigifwq completes the activity by him/herself with no assistance from a helper. 5-Set-up or Clean-up Assistance-helper sets up or cleans up; patient completes activity. [place] assists only prior to or following the activity. 4-Supervision or Touching Assistance-helper provides verbal cues and/or touching/steadying and/or contact guard assistance as patient completes activity. Assistance may be provided throughout the activity or intermittently. 3-Partial/Moderate Assistance-helper does LESS THAN HALF the effort. [place] lifts, holds or supports trunk or limbs, but provides less than half the effort. 2-Substantial/Maximal Assistance-helper does MORE THAN HALF the effort. [place] lifts or holds trunk or limbs and provides more than half the effort. 0-Pwbzxenjk-selptj does ALL the effort. Patient does none of the effort to complete the activity. Or, the assistance of 2 or more helpers is required for the patient to complete the activity. If activity was not attempted, code reason: 7-Patient Refused. 9-Not Applicable-not attempted and the patient did not perform the activity befo re the current illness, exacerbation or injury. 10-Not Attempted due to Environmental Limitations-(lack of equipment, weather re straints, etc.). 88-Not Attempted due to Medical Conditions or Safety Concerns. Roll Left to Right (QC): 6 Sit to Lying (QC): 6 Sit to Stand (QC): 6 Chair/Zwv-he-Ulduc Xfer(QC): 6 Car Transfer (QC): 6 Gait Training Does the Patient Walk?: Yes Distance: 500'x2 Walk 10 feet (QC): 6 Walk 50 ft with 2 Turns(QC): 6 Walk 150 ft (QC): 6 Walking 10ft/uneven surface-QC: 4 Gait Persons Needed: 1 Gait Assistive Device: FWW Wheelchair Training Does the Pt Use a Wheelchair?: No Wheel 50 ft with 2 turns (QC): 9 Wheel 150 ft (QC): 9 Stair Training Stair Training: Handrails/: 2 handrails #of Steps: 12 1 Step (curb) (QC): 4 4 Steps (QC): 4 12 Steps (QC): 4 Stairs: Pattern: Reciprocal Balance Picking up an Object (QC): 4 ADL-Treatment Eating (QC): 6 Oral Hygiene (QC): 6 Bathing Location: L Arm, R Arm, L Upper Leg, R Upper Leg, L Lower Leg (including foot), R Lower Leg (including foot), Chest, Abdomen, Buttocks, Perineal Area Shower/Bathe Self (QC): 5 Upper Body Dressing (QC): 5 Lower Body Dressing (QC): 5 On/Off Footwear (QC): 5 Toileting Hygiene (QC): 6 Toilet Transfer (QC): 6 Assessment/Plan Assessment and Plan Assess & Plan/Chief Complaint Assessment: CVA with right-sided weakness Right facial droop Hypertension Hyperlipidemia Depression Anxiety Status post craniotomy Anemia Leukocytosis from steroids Elevated liver enzymes Elevated platelet count Major depression evaluated by behavioral consult 05/06/2021 so added Effexor to her Celexa Plan: Restart home meds and [facility] meds Aggressive rehab Supportive care 05/05/2021: Pain control Aggressive rehab 05/06/2021: Review home meds for necessity Entertain changing Lexapro or adding Effexor 05/07/2021: Still reviewing all of her medication as she requested Supportive care 05/08/2021: Supportive care Effexor 05/09/2021: Depression treatment Supportive care 05/10/2021: Increase Effexor Supportive care 05/11/2021: Discharge home (1) Hypertension (2) Right arm weakness (3) Facial droop (4) S/P craniotomy (5) CVA (cerebral vascular accident) (6) GERD (gastroesophageal reflux disease) MASOOD MARTÍNEZ DO May 11, 2021 06:08
[2021-05-11 07:44] VITALS: BP 123/60
[2021-05-11] MEDS ORDERED: VENlafaxine XR 37.5 MG (EFFEXOR XR) CAP PO SCH (08:00)
--- NOTE | 2021-05-11 08:18 | Therapy Team Discharge Summary ---
Therapy Discharge Summary Discharge Recommendations Date of Discharge Physical Therapy Roll Left to Right (QC): 6 Sit to Lying (QC): 6 Lying to Sitting/Side of Bed(Q: 6 Sit to Stand (QC): 6 Chair/Ejk-mf-Byqwp Xfer(QC): 6 Toilet Transfer (QC): 5 Car Transfer (QC): 6 Does the Patient Walk: Yes Mode of Locomotion: Walk Anticipated Mode of Locomotion: Walk Walk 10 feet (QC): 6 Walk 50 ft with 2 Turns(QC): 6 Walk 150 ft (QC): 6 Walking 10ft on uneven surface: 4 Distance: 200', 120', 150' Gait Assistive Device: FWW Does the Pt Use a Wheelchair: No Wheel 50 ft with 2 turns (QC): 9 Wheel 150 ft (QC): 9 #of Steps: 12 1 Step (curb) (QC): 4 4 Steps (QC): 4 12 Steps (QC): 4 Balance Sitting Static: Normal Balance Sitting Dynamic: Normal Balance-Standing Static: Good Picking up an Object (QC): 4 Occupational Therapy Decreased Activ Tolerance, Impaired Cognition Eating (QC): 6 Oral Hygiene (QC): 6 Shower/Bathe Self (QC): 5 Upper Body Dressing (QC): 5 Lower Body Dressing (QC): 5 On/Off Footwear (QC): 5 Toileting Hygiene (QC): 6 Speech-Language Pathology The patient was evaluated by speech pathology and displayed a moderate cognitive linguistic deficit. The patient has displayed great improvement throughout her stay, however, continues to struggle with word-finding. Home health or outpatient speech pathology would be appropriate following discharge. PT Rehab Physician Goals [facility] Goals PT Rehab Physician Goals Time Frame: May 25, 2021 Roll Left to Right (QC): 6 Sit to Lying (QC): 6 Lying-Sitting on Side/Bed(QC): 6 Sit to Stand (QC): 6 Chair/Mdq-yt-Rcojr Xfer(QC): 6 Car Transfer (QC): 6 Does the Patient Walk: Yes Walk 10 feet (QC): 6 Walk 10ft-Uneven Surface(QC): 6 Walk 50ft with 2 Turns (QC): 6 Walk 150 ft (QC): 6 Wheel 50 feet with 2 turns (QC: 9 1 Step (curb) (QC): 4 (SBA) 4 Steps (QC): 4 (SBA) 12 Steps (QC): 4 (SBA) Picking up an Object (QC): 4 (SBA) OT Mcc Goals Rehab Physician Goals Time Frame: May 28, 2021 Eating (QC): 6 (met) Oral Hygiene (QC): 6 (met) Shower/Bathe Self (QC): 6 (mnot met) Upper Body Dressing (QC): 6 (not met) Lower Body Dressing (QC): 6 (not met) On/Off Footwear (QC): 6 (not met) Toileting Hygiene (QC): 6 (met) Toilet/Commode Transfer (QC): 6 Additional Goals: 1-Demonstrate ADL Tasks, 2-Verbalize Understanding, 3- ImproveStrength/Liang 1=Demonstrate adherence to instructed precautions during ADL tasks. 2=Patient will verbalize/demonstrate understanding of assistive devices/modifications for ADL. 3=Patient will improve strength/tolerance for activity to enable patient to perform ADL's. Speech Rehab Physician Goals [facility] Goals 1. The patient will demonstrate increased functional language and cognition for safe discharge to the least restricted environment. MET HENRRY MACHADO May 11, 2021 08:18
[2021-05-11] MEDS: OMEGA 3 (FISH OIL) 1000 MG CAP PO SCH (08:23)
[2021-05-11] MEDS: PANTOPRAZOLE 20 MG TABLET (PROTONIX) PO SCH (08:23)
[2021-05-11] MEDS: LORATADINE (CLARITIN) 10 MG TAB PO SCH (08:23)
[2021-05-11] MEDS: ASPIRIN E.C. 81 MG (ECOTRIN) TAB PO SCH (08:23)
[2021-05-11] MEDS: VITAMIN D3 25 MCG (1,000 UNITS) TABLET PO SCH (08:23)
--- NOTE | 2021-05-11 08:32 | Therapy Team Discharge Summary ---
Therapy Discharge Summary Discharge Recommendations Date of Discharge Physical Therapy Roll Left to Right (QC): 6 Sit to Lying (QC): 6 Lying to Sitting/Side of Bed(Q: 6 Sit to Stand (QC): 6 Chair/Syu-ro-[place] Xfer(QC): 6 Toilet Transfer (QC): 5 Car Transfer (QC): 6 Does the Patient Walk: Yes Mode of Locomotion: Walk Anticipated Mode of Locomotion: Walk Walk 10 feet (QC): 6 Walk 50 ft with 2 Turns(QC): 6 Walk 150 ft (QC): 6 Walking 10ft on uneven surface: 4 Distance: 200', 120', 150' Gait Assistive Device: FWW Does the Pt Use a Wheelchair: No Wheel 50 ft with 2 turns (QC): 9 Wheel 150 ft (QC): 9 #of Steps: 12 1 Step (curb) (QC): 4 4 Steps (QC): 4 12 Steps (QC): 4 Balance Sitting Static: Normal Balance Sitting Dynamic: Normal Balance-Standing Static: Good Picking up an Object (QC): 4 Occupational Therapy Pt admitted to [facility] s/p CVA. At [facility], pt was independent with all ADLs and functional mobility without AD. Upon initial evaluation, pt was independent with eating, required CGA oral care, CGA showering, min A UE/LE dressing, set up footwear and supervision with toileting. Pt made good progress towards goals, meeting LTGs for eating, oral care and toileting. OT recommendations include a bath chair. Pt to discharge from facility, d/c from OT. Decreased Activ Tolerance, Impaired Cognition Eating (QC): 6 Oral Hygiene (QC): 6 Shower/Bathe Self (QC): 5 Upper Body Dressing (QC): 5 Lower Body Dressing (QC): 5 On/Off Footwear (QC): 5 Toileting Hygiene (QC): 6 PT Financial Reporting Advisor Goals Financial Reporting Advisor Goals PT Financial Reporting Advisor Goals Time Frame: May 25, 2021 Roll Left to Right (QC): 6 Sit to Lying (QC): 6 Lying-Sitting on Side/Bed(QC): 6 Sit to Stand (QC): 6 Chair/Qog-km-Dvfnk Xfer(QC): 6 Car Transfer (QC): 6 Does the Patient Walk: Yes Walk 10 feet (QC): 6 Walk 10ft-Uneven Surface(QC): 6 Walk 50ft with 2 Turns (QC): 6 Walk 150 ft (QC): 6 Wheel 50 feet with 2 turns (QC: 9 1 Step (curb) (QC): 4 (SBA) 4 Steps (QC): 4 (SBA) 12 Steps (QC): 4 (SBA) Picking up an Object (QC): 4 (SBA) OT Financial Reporting Advisor Goals Financial Reporting Advisor Goals Time Frame: May 28, 2021 Eating (QC): 6 (met) Oral Hygiene (QC): 6 (met) Shower/Bathe Self (QC): 6 (mnot met) Upper Body Dressing (QC): 6 (not met) Lower Body Dressing (QC): 6 (not met) On/Off Footwear (QC): 6 (not met) Toileting Hygiene (QC): 6 (met) Toilet/Commode Transfer (QC): 6 Additional Goals: 1-Demonstrate ADL Tasks, 2-Verbalize Understanding, 3-Impr oveStrength/Liang 1=Demonstrate adherence to instructed precautions during ADL tasks. 2=Patient will verbalize/demonstrate understanding of assistive devices/modifications for ADL. 3=Patient will improve strength/tolerance for activity to enable patient to perform ADL's. Speech Financial Reporting Advisor Goals Financial Reporting Advisor Goals 1. The patient will demonstrate increased functional language and cognition for safe discharge to the least restricted environment. MET HIREN HORN OT May 11, 2021 08:32
[2021-05-11] MEDS ORDERED: METH-731 PO (08:33)
[2021-05-11] MEDS ORDERED: VENL-48 PO (08:33)
--- NOTE | 2021-05-11 08:34 | D/C HH Face to Face Order ---
D/C Face to Face Orders Reconcile Patient Problems Problems Reviewed?: Yes Instructions for Patient Via [facility], Patient Instructions/FollowUp: Dr Simon as scheduled Physician to follow Patient: [place] Discharge Diet for Home: No Restrictions Patient Problems: Craniotomy Patient Data-Allergies,Ht & Wt Patient Allergies: Coded Allergies: clindamycin (Verified Allergy, Mild, RASH, 08/07/18) phenytoin (Verified Allergy, Mild, HIVES, 08/07/18) Height (Feet): 5 Height (Inches): 4.00 Weight (Pounds): 131 Weight (Ounces): 0.0 Home Health Need/Face to Face Date of Face to Face: May 11, 2021 Clinical Findings: Generalized weakness and fatigue, Instability, Unsteady gait I have seen Pt edyc-ps-gnbu: Yes Discharged To: Home Diagnosis/Conditions: Craniotomy Patient is Homebound due to: CognItive deficits, Charissa fall risk due to instabilty, Muscle weakness Homebound Status Due to the above stated illness, injury or surgical procedure (medical condition or diagnosis) and associated clinical findings, the patient is homebou nd because of his/her inability to leave home except with aid of a supportive device and/or person AND leaving the home requires a considerable and taxing effort or is medically contraindicated. Pt req the following assistanc: Walker Home Health Nursing Orders Home Health Services Order: Nursing Services, Train Announcer-Evaluate & Treat, Physical Therapy-Evaluate & Treat Certify Stmt I certify that this patient is under my care and that I, a nurse practitioner or a physician; a patient care assistant working with me, had a face to face encounter that - meets the physician face to face encounter requirements with this patient as dated. MASOOD SIMON DO May 11, 2021 08:33
--- NOTE | 2021-05-11 08:34 | Discharge Summary ---
Diagnosis/Chief Complaint Date of Admission May 04, 2021 at 13:17 Date of Discharge Discharge Date: May 11, 2021 Discharge Diagnosis Assessment: CVA with right-sided weakness Right facial droop Hypertension Hyperlipidemia Depression Anxiety Status post craniotomy Anemia Leukocytosis from steroids Elevated liver enzymes Elevated platelet count Major depression evaluated by behavioral consult 05/06/2021 so added Effexor to her Celexa Plan: Restart home meds and [facility] meds Aggressive rehab Supportive care 05/05/2021: Pain control Aggressive rehab 05/06/2021: Review home meds for necessity Entertain changing Lexapro or adding Effexor 05/07/2021: Still reviewing all of her medication as she requested Supportive care 05/08/2021: Supportive care Effexor 05/09/2021: Depression treatment Supportive care 05/10/2021: Increase Effexor Supportive care (1) Hypertension (2) Right arm weakness (3) Facial droop (4) S/P craniotomy (5) CVA (cerebral vascular accident) (6) GERD (gastroesophageal reflux disease) Discharge Summary Discharge Physical Examination Allergies: Coded Allergies: clindamycin (Verified Allergy, Mild, RASH, 08/07/18) phenytoin (Verified Allergy, Mild, HIVES, 08/07/18) Vitals & I&Os Vital Signs Date Time Temp Pulse Resp B/P (MAP) Pulse Ox O2 Delivery O2 Flow Rate FiO2 05/11/21 11:00 36.4 60 16 123/60 96 Room Air General Appearance: Alert, Oriented X3, Cooperative Respiratory: Clear to Auscultation Cardiovascular: Regular Rate Neuro: Normal Gait, Normal Speech, Strength at 5/5 X4 Ext Psych/Mental Status: Mental Status NL Hospital Course Was the Problem List Reviewed?: Yes Pt had an uneventful 8 day hospital course status post craniotomy from meningioma resection. She did complete her Decadron. Labs remained stable with elevated platelets and white count due to steroid effect. She was able to regain enough function to decline any home health or outpatient therapy. She was deemed stable for discharge. Labs (last 24 hrs) Laboratory Tests 05/05/21 05:23: White Blood Count 15.9H, Red Blood Count 3.15L, Hemoglobin 8.8L, Hematocrit 28L, Mean Corpuscular Volume 89, Mean Corpuscular Hemoglobin 28, Mean Corpuscular Hemoglobin Concent 31L, Red Cell Distribution Width 15.9H, Platelet Count 416H, Mean Platelet Volume 12.6H, Immature Granulocyte % (Auto) 4, Neutrophils (%) (Auto) 73, Lymphocytes (%) (Auto) 14, Monocytes (%) (Auto) 9, Eosinophils (%) (Auto) 0, Basophils (%) (Auto) 0, Neutrophils # (Auto) 11.6H, Lymphocytes # (Auto) 2.3, Monocytes # (Auto) 1.4H, Eosinophils # (Auto) 0.0, Basophils # (Auto) 0.0, Immature Granulocyte # (Auto) 0.6H, Neutrophils % (Manual) 70, Lymph ocytes % (Manual) 13, Monocytes % (Manual) 8, Eosinophils % (Manual) 0, Basophils % (Manual) 0, Metamyelocytes % 2, Band Neutrophils 3, Nucleated Red Blood Cells 4, Reactive Lymphocytes 4, Polychromasia SLIGHT, Anisocytosis SLIGHT, Sodium Level 136, Potassium Level 3.9, Chloride Level 102, Carbon Dioxide Level 21, Anion Gap 13, Blood Urea Nitrogen 16, Creatinine 0.65, Estimat Glomerular Filtration Rate 92, BUN/Creatinine Ratio 25, Glucose Level 148H, Calcium Level 8.3L, Corrected Calcium 8.5, Total Bilirubin 0.6, Aspartate Amino Transf (AST/SGOT) 83H, Alanine Aminotransferase (ALT/SGPT) 343H, Alkaline Phosphatase 75, Total Protein 6.7, Albumin 3.7 05/10/21 06:27: White Blood Count 16.8H, Red Blood Count 3.15L, Hemoglobin 8.6L, Hematocrit 29L, Mean Corpuscular Volume 91, Mean Corpuscular Hemoglobin 27, Mean Corpuscular Hemoglobin Concent 30L, Red Cell Distribution Width 16.9H, Platelet Count 424H, Mean Platelet Volume 11.2, Immature Granulocyte % (Auto) 6, Neutrophils (%) (Auto) 67, Lymphocytes (%) (Auto) 15, Monocytes (%) (Auto) 8, Eosinophils (%) (Auto) 3, Basophils (%) (Auto) 0, Neutrophils # (Auto) 11.2H, Lymphocytes # (Auto) 2.5, Monocytes # (Auto) 1.4H, Eosinophils # (Auto) 0.5H, Basophils # (Auto) 0.0, Immature Granulocyte # (Auto) 1.1H, Sodium Level 137, Potassium Level 4.3, Chloride Level 104, Carbon Dioxide Level 25, Anion Gap 8, Blood Urea Nitrogen 11, Creatinine 0.63, Estimat Glomerular Filtration Rate 92, BUN/Creatinine Ratio 17, Glucose Level 112H, Calcium Level 7.8L, Corrected Calcium 8.4L, Total Bilirubin 0.5, Aspartate Amino Transf (AST/SGOT) 24, Alanine Aminotransferase (ALT/SGPT) 96H, Alkaline Phosphatase 63, Total Protein 5.5L, Albumin 3.2 Pending Labs Laboratory Tests 05/05/21 05:23: White Blood Count 15.9, Red Blood Count 3.15, Hemoglobin 8.8, Hematocrit 28, Mean Corpuscular Volume 89, Mean Corpuscular Hemoglobin 28, Mean Corpuscular Hemoglobin Concent 31, Red Cell Distribution Width 15.9, Platelet Count 416, Mean Platelet Volume 12.6, Immature Granulocyte % (Auto) 4, Neutrophils (%) (Auto) 73, Lymphocytes (%) (Auto) 14, Monocytes (%) (Auto) 9, Eosinophils (%) (Auto) 0, Basophils (%) (Auto) 0, Neutrophils # (Auto) 11.6, Lymphocytes # (Auto) 2.3, Monocytes # (Auto) 1.4, Eosinophils # (Auto) 0.0, Basophils # (Auto) 0.0, Immature Granulocyte # (Auto) 0.6, Neutrophils % (Manual) 70, Lymphocytes % (Manual) 13, Monocytes % (Manual) 8, Eosinophils % (Manual) 0, Basophils % (Manual) 0, Metamyelocytes % 2, Band Neutrophils 3, Nucleated Red Blood Cells 4, Reactive Lymphocytes 4, Polychromasia SLIGHT, Anisocytosis SLIGHT, Sodium Level 136, Potassium Level 3.9, Chloride Level 102, Carbon Dioxide Level 21, Anion Gap 13, Blood Urea Nitrogen 16, Creatinine 0.65, Estimat Glomerular Filtration Rate 92, BUN/Creatinine Ratio 25, Glucose Level 148, Calcium Level 8.3, Corrected Calcium 8.5, Total Bilirubin 0.6, Aspartate Amino Transf (AST/SGOT) 83, Alanine Aminotransferase (ALT/SGPT) 343, Alkaline Phosphatase 75, Total Protein 6.7, Albumin 3.7 05/10/21 06:27: White Blood Count 16.8, Red Blood Count 3.15, Hemoglobin 8.6, Hematocrit 29, Mean Corpuscular Volume 91, Mean Corpuscular Hemoglobin 27, Mean Corpuscular Hemoglobin Concent 30, Red Cell Distribution Width 16.9, Platelet Count 424, Mean Platelet Volume 11.2, Immature Granulocyte % (Auto) 6, Neutrophils (%) (Auto) 67, Lymphocytes (%) (Auto) 15, Monocytes (%) (Auto) 8, Eosinophils (%) (Auto) 3, Basophils (%) (Auto) 0, Neutrophils # (Auto) 11.2, Lymphocytes # (Auto) 2.5, Monocytes # (Auto) 1.4, Eosinophils # (Auto) 0.5, Basophils # (Auto) 0.0, Immature Granulocyte # (Auto) 1.1, Sodium Level 137, Potassium Level 4.3, Chloride Level 104, Carbon Dioxide Level 25, Anion Gap 8, Blood Urea Nitrogen 11, Creatinine 0.63, Estimat Glomerular Filtration Rate 92, BUN/Creatinine Ratio 17, Glucose Level 112, Calcium Level 7.8, Corrected Calcium 8.4, Total Bilirubin 0.5, Aspartate Amino Transf (AST/SGOT) 24, Alanine Aminotransferase (ALT/SGPT) 96, Alkaline Phosphatase 63, Total Protein 5.5, Albumin 3.2 Discharge Home Medications: Active Scripts Active Venlafaxine HCl ER (Venlafaxine HCl) 37.5 Mg Cap.er.24h 75 Mg PO DAILY@0700 Methocarbamol 500 Mg Tablet 500 Mg PO BID PRN Reported Atorvastatin Calcium 80 Mg Tablet 80 Mg PO HS Omeprazole 20 Mg Capsule.dr 20 Mg PO DAILY Metoprolol Tartrate 50 Mg Tablet 50 Mg PO HS Loratadine 10 Mg Tablet 10 Mg PO DAILY Flonase Allergy Relief (Fluticasone Propionate) 9.9 Ml Casar.susp 1 Casar NSEACH HS 1 SPRAY EACH NARE DAILY Tums Dual Action Tablet Chew (Famotidine/Ca Carb/Mag Hydrox) 1 Each Tab.chew 1 Each PO DAILY PRN Escitalopram Oxalate 20 Mg Tablet 20 Mg PO HS Colace (Docusate Sodium) 100 Mg Capsule 100 Mg PO DAILY PRN Co Q-10 (Ubidecarenone) 100 Mg Capsule 100 Mg PO DAILY Vitamin D3 (Cholecalciferol (Vitamin D3)) 25 Mcg Tablet 100 Mcg PO DAILY TAKES 4 (25MCG) TABS Aspirin EC (Aspirin) 81 Mg Tablet.dr 81 Mg PO DAILY Sea-[place] 1,000 mg Softgel ([place]-3S/Dha/Epa/Fish Oil) 1 Each Capsule 1 Each PO DAILY Amlodipine Besylate 5 Mg Tablet 5 Mg PO HS Instructions to patient/family Please see electronic discharge instructions given to patient. Diagnosis/Problems Diagnosis/Problems (1) Hypertension (2) Right arm weakness (3) Facial droop (4) S/P craniotomy (5) CVA (cerebral vascular accident) (6) GERD (gastroesophageal reflux disease) MASOOD MARTÍNEZ DO May 11, 2021 08:34
[2021-05-11] MEDS: DOCUSATE SODIUM 100 MG (COLACE) CAP PO SCH (09:34)
[2021-05-11] MEDS: polyethylene glycoL POWDER 17 GM (MIRALAX) PACK PO SCH (09:34)
[2021-05-11] MEDS: SENNA W/DOCUSATE (SENOKOT S) TABLET PO SCH (09:34)
[2021-05-11 11:00] VITALS: BP 123/60
--- NOTE | 2021-05-11 15:32 | Therapy Team Discharge Summary ---
Therapy Discharge Summary Discharge Recommendations Date of Discharge May 11, 2021 at 11:16 Physical Therapy Patient came to rehab following a CVA. Upon evaluation patient performed rolling and supine <-> sit with independence, sit <-> stand and transfers with CGA, car transfer CGA, ambulated 200' with a rolling walker with CGA (including 50' with at least 2 turns of 90 degrees and 10' over an uneven surface), went up and down 4 steps using 2 handrails with CGA, and picked up an object from the floor with a engraving operator with CGA. Patient has been performing bed mobility and transfer training, balance and endurance training, functional strengthening, stair training, gait training, and education. Patient has made good progress and has met all of her alf goals except for walking 10' over an uneven surface. Now, patient performs rolling and supine <-> sit with independence, sit <-> stand and transfers with independence, independent with car transfer, ambulate 300' with a rolling walker with independence (including 50' with at least 2 turns of 90 degrees but needs SBA to ambulate 10' over an uneven surface), can go up and down 12 steps using 2 handrails with SBA, and can rock picker an object from the floor with SBA. Patient has been discharged from this facility and will be discharged from PT at this time. Roll Left to Right (QC): 6 Sit to Lying (QC): 6 Lying to Sitting/Side of Bed(Q: 6 Sit to Stand (QC): 6 Chair/Wrd-sy-Hgiwp Xfer(QC): 6 Toilet Transfer (QC): 5 Car Transfer (QC): 6 Does the Patient Walk: Yes Mode of Locomotion: Walk Anticipated Mode of Locomotion: Walk Walk 10 feet (QC): 6 Walk 50 ft with 2 Turns(QC): 6 Walk 150 ft (QC): 6 Walking 10ft on uneven surface: 4 Distance: 200', 120', 150' Gait Assistive Device: FWW Does the Pt Use a Wheelchair: No Wheel 50 ft with 2 turns (QC): 9 Wheel 150 ft (QC): 9 #of Steps: 12 1 Step (curb) (QC): 4 4 Steps (QC): 4 12 Steps (QC): 4 Balance Sitting Static: Normal Balance Sitting Dynamic: Normal Balance-Standing Static: Good Picking up an Object (QC): 4 Occupational Therapy Decreased Activ Tolerance, Impaired Cognition Eating (QC): 6 Oral Hygiene (QC): 6 Shower/Bathe Self (QC): 5 Upper Body Dressing (QC): 5 Lower Body Dressing (QC): 5 On/Off Footwear (QC): 5 Toileting Hygiene (QC): 6 PT Systems Developer Goals Systems Developer Goals PT Systems Developer Goals Time Frame: May 25, 2021 Roll Left to Right (QC): 6 Sit to Lying (QC): 6 Lying-Sitting on Side/Bed(QC): 6 Sit to Stand (QC): 6 Chair/Jfz-jy-Mzblz Xfer(QC): 6 Car Transfer (QC): 6 Does the Patient Walk: Yes Walk 10 feet (QC): 6 Walk 10ft-Uneven Surface(QC): 6 Walk 50ft with 2 Turns (QC): 6 Walk 150 ft (QC): 6 Wheel 50 feet with 2 turns (QC: 9 1 Step (curb) (QC): 4 (SBA) 4 Steps (QC): 4 (SBA) 12 Steps (QC): 4 (SBA) Picking up an Object (QC): 4 (SBA) OT Fci Goals Fci Goals Time Frame: May 28, 2021 Eating (QC): 6 (met) Oral Hygiene (QC): 6 (met) Shower/Bathe Self (QC): 6 (mnot met) Upper Body Dressing (QC): 6 (not met) Lower Body Dressing (QC): 6 (not met) On/Off Footwear (QC): 6 (not met) Toileting Hygiene (QC): 6 (met) Toilet/Commode Transfer (QC): 6 Additional Goals: 1-Demonstrate ADL Tasks, 2-Verbalize Understanding, 3- ImproveStrength/Liang 1=Demonstrate adherence to instructed precautions during ADL tasks. 2=Patient will verbalize/demonstrate understanding of assistive devices/modifications for ADL. 3=Patient will improve strength/tolerance for activity to enable patient to perform ADL's. Speech Systems Developer Goals Systems Developer Goals 1. The patient will demonstrate increased functional language and cognition for safe discharge to the least restricted environment. MET ESMER LAWSON PT May 11, 2021 15:32
== END 2021-05-11 11:16 | disposition home or self-care (01) | DRG 57 ==
PROVIDERS: ADMIT Internal Medicine; ATTEND Internal Medicine
DX: I69.320 Aphasia following cerebral infarction (principal); I69.392 Facial weakness following cerebral infarction; I69.398 Other sequelae of cerebral infarction; H53.461 Homonymous bilateral field defects, right side; I10 Essential (primary) hypertension; K21.9 Gastro-esophageal reflux disease without esophagitis; E78.5 Hyperlipidemia, unspecified; K44.9 Diaphragmatic hernia without obstruction or gangrene; M19.91 Primary osteoarthritis, unspecified site; G25.81 Restless legs syndrome; G47.33 Obstructive sleep apnea (adult) (pediatric); E78.00 Pure hypercholesterolemia, unspecified; F41.9 Anxiety disorder, unspecified; F32.A Depression, unspecified; D72.829 Elevated white blood cell count, unspecified; R74.8 Abnormal levels of other serum enzymes; D75.839 Thrombocytosis, unspecified; D64.9 Anemia, unspecified; Z79.82 Long term (current) use of aspirin; Z88.6 Allergy status to analgesic agent; Z88.8 Allergy status to other drugs, medicaments and biological substances
CPT/HCPCS: 36415; 80053; 85007; 85025; 85027

== ENCOUNTER → 2021-07-20 | Outpatient (CLI) | payer MEDICARE ==
[~2021-07-20] MED LIST changes: -ALPRAZolam 0.25 MG (XANAX) TAB PO PRN; -BISACODYL 10 MG SUPP (DULCOLAX) PR PRN; -CALCIUM CARBONATE 500 MG (TUMS) TAB.CHEW PO PRN; -DOCUSATE SODIUM 100 MG (COLACE) CAP PO PRN; -FLEET ENEMA ADULT 1 EA BTL PR PRN; -LACTULOSE SYRUP 10GM/15ML (ENULOSE) 30ML UDC PO PRN; -LOPERAMIDE 2 MG (IMODIUM) TABLET PO PRN; -MELATONIN 3 MG TABLET PO PRN; -ONDANSETRON 4 MG (ZOFRAN) ORAL DISSOLVE TAB PO PRN; +VENL-48 PO; -diphenhydrAMINE 25 MG TAB (BENADRYL) PO PRN; -guaiFENesin/CODEINE (ROBITUSSIN AC) 10ML UDC PO PRN
[2021-07-20 17:49] LABS: BASOPHILS # (AUTO) 0.1 10^3/uL (0.0-0.1); BASOPHILS % (AUTO) 1 % (0-10); EOSINOPHILS # (AUTO) 0.3 10^3/uL (0.0-0.3); EOSINOPHILS % (AUTO) 4 % (0-10); HEMATOCRIT 27 % (35-52); HEMOGLOBIN 7.7 g/dL (11.5-16.0); LYMPHOCYTES # (AUTO) 0.9 10^3/uL (1.0-4.0); LYMPHOCYTES % (AUTO) 11 % (12-44); MEAN CORPUSCULAR HEMOGLOBIN 24 pg (25-34); MEAN CORPUSCULAR HGB CONC 29 g/dL (32-36); MEAN CORPUSCULAR VOLUME 84 fL (80-99); MEAN PLATELET VOLUME 11.8 fL (9.0-12.2); MONOCYTES # (AUTO) 1.2 10^3/uL (0.0-1.0); MONOCYTES % (AUTO) 14 % (0-12); NEUTROPHILS # (AUTO) 5.9 10^3/uL (1.8-7.8); NEUTROPHILS % (AUTO) 70 % (42-75); PLATELET COUNT 206 10^3/uL (130-400); WHITE BLOOD COUNT 8.3 10^3/uL (4.3-11.0)
[2021-07-20 18:04] LABS: ALBUMIN 3.6 GM/DL (3.2-4.5)
[2021-07-20 18:05] LABS: CALCIUM 8.5 MG/DL (8.5-10.1)
[2021-07-20 18:07] LABS: TOTAL PROTEIN 5.7 GM/DL (6.4-8.2)
[2021-07-20 18:08] LABS: BILIRUBIN,TOTAL 0.5 MG/DL (0.1-1.0)
[2021-07-20 18:10] LABS: CREATININE SERUM 0.69 MG/DL (0.60-1.30)
[2021-07-20 18:39] LABS: LYMPHOCYTES % (MANUAL) 8 %; MONOCYTES % (MANUAL) 10 %; NEUTROPHILS % (MANUAL) 77 %
[2021-07-20 18:40] LABS: BASOPHILS % (MANUAL) 2 %; EOSINOPHILS % (MANUAL) 3 %
[2021-07-20 18:41] LABS: HYPOCHROMASIA SLIGHT; POLYCHROMASIA SLIGHT
[2021-07-20 18:42] LABS: BURR CELLS SLIGHT; STOMATOCYTES SLIGHT
== END ==
LOC: LABNPT 17:44
PROVIDERS: ATTEND Urology
DX: D64.9 Anemia, unspecified (principal)
CPT/HCPCS: 80053; 85007; 85027

== ENCOUNTER 2021-07-23 11:23 | Outpatient (RCR) | payer MEDICARE ==
[2021-07-14 10:30] VITALS: BP 135/77
[2021-07-14] MEDS: IRON SUCROSE 200 MG/10 ML (VENOFER) VIAL IV SCH (11:09)
[2021-07-16 12:10] VITALS: BP 142/77
[2021-07-16] MEDS: IRON SUCROSE 200 MG/10 ML (VENOFER) VIAL IV SCH (12:31)
[2021-07-19] MEDS: IRON SUCROSE 200 MG/10 ML (VENOFER) VIAL IV SCH (12:25)
[2021-07-19 13:02] VITALS: BP 137/66
[2021-07-21] MEDS: IRON SUCROSE 200 MG/10 ML (VENOFER) VIAL IV SCH (12:33)
[2021-07-21 13:10] VITALS: BP 128/63
[~2021-07-23] VITALS: Ht 162.1 cm; Wt 63.0 kg
[2021-07-23 11:20] VITALS: BP 146/72
[2021-07-23] MEDS: IRON SUCROSE 200 MG/10 ML (VENOFER) VIAL IV SCH (11:37)
== END 2021-07-24 | disposition home or self-care (01) ==
LOC: SDC 11:23
PROVIDERS: ATTEND Internal Medicine
DX: E61.1 Iron deficiency (principal)
CPT/HCPCS: 96365; G0463; 99211

== ENCOUNTER → 2021-08-03 | Outpatient (CLI) | payer MEDICARE ==
[2021-08-03 18:20] LABS: BASOPHILS # (AUTO) 0.1 10^3/uL (0.0-0.1); BASOPHILS % (AUTO) 1 % (0-10); EOSINOPHILS % (AUTO) 0 % (0-10); HEMATOCRIT 31 % (35-52); HEMOGLOBIN 9.1 g/dL (11.5-16.0); LYMPHOCYTES # (AUTO) 1.1 10^3/uL (1.0-4.0); LYMPHOCYTES % (AUTO) 15 % (12-44); MEAN CORPUSCULAR HEMOGLOBIN 26 pg (25-34); MEAN CORPUSCULAR HGB CONC 29 g/dL (32-36); MEAN CORPUSCULAR VOLUME 89 fL (80-99); MONOCYTES # (AUTO) 1.1 10^3/uL (0.0-1.0); MONOCYTES % (AUTO) 15 % (0-12); NEUTROPHILS # (AUTO) 4.9 10^3/uL (1.8-7.8); NEUTROPHILS % (AUTO) 68 % (42-75); PLATELET COUNT 362 10^3/uL (130-400); WHITE BLOOD COUNT 7.2 10^3/uL (4.3-11.0)
[2021-08-03 18:36] LABS: ALBUMIN 3.3 GM/DL (3.2-4.5); POTASSIUM 3.9 MMOL/L (3.6-5.0)
[2021-08-03 18:37] LABS: CALCIUM 8.5 MG/DL (8.5-10.1)
[2021-08-03 18:39] LABS: TOTAL PROTEIN 5.6 GM/DL (6.4-8.2)
[2021-08-03 18:41] LABS: BILIRUBIN,TOTAL 0.4 MG/DL (0.1-1.0)
[2021-08-03 18:43] LABS: CREATININE SERUM 0.6 MG/DL (0.60-1.30)
[2021-08-03 18:58] LABS: BASOPHILS % (MANUAL) 1 %; BURR CELLS SLIGHT; HYPOCHROMASIA MODERATE; LYMPHOCYTES % (MANUAL) 17 %; MONOCYTES % (MANUAL) 7 %; NEUTROPHILS % (MANUAL) 75 %
== END ==
LOC: LABNPT 18:12
PROVIDERS: ATTEND Internal Medicine
DX: D64.9 Anemia, unspecified (principal)
CPT/HCPCS: 80053; 80061; 85007; 85027

== ENCOUNTER 2022-02-16 12:28 | Outpatient (RCR) | payer MEDICARE ==
[2022-02-07 12:46] VITALS: BP 125/70
[2022-02-07] MEDS: IRON SUCROSE 200 MG/10 ML (VENOFER) VIAL IV SCH (13:25)
[2022-02-09] MEDS: IRON SUCROSE 200 MG/10 ML (VENOFER) VIAL IV SCH (12:52)
[2022-02-09 13:25] VITALS: BP 132/63
[2022-02-11 12:51] VITALS: BP 125/64
[2022-02-11] MEDS: IRON SUCROSE 200 MG/10 ML (VENOFER) VIAL IV SCH (12:51)
[2022-02-14] MEDS: IRON SUCROSE 200 MG/10 ML (VENOFER) VIAL IV SCH (12:40)
[2022-02-14 12:46] VITALS: BP 120/64
[~2022-02-16] VITALS: Ht 160 cm; Wt 59.1 kg
[~2022-02-16 12:28] MED LIST changes: -FAMO1TAB3 PO; +FAMO1TAB4 PO
[2022-02-16] MEDS: IRON SUCROSE 200 MG/10 ML (VENOFER) VIAL IV SCH (12:58)
[2022-02-16 13:30] VITALS: BP 130/69
== END 2022-02-16 13:30 | disposition home or self-care (01) ==
LOC: SDC 12:28
PROVIDERS: ATTEND Internal Medicine
DX: D50.9 Iron deficiency anemia, unspecified (principal)
CPT/HCPCS: 96365

== ENCOUNTER → 2022-03-01 | Outpatient (CLI) | payer MEDICARE ==
[~2022-03-01] MED LIST changes: +GADOTERATE 0.5 MMOL/ML (CLARISCAN) 15 ML VIAL IV ONE
--- NOTE | 2022-03-01 15:22 | Diagnostic Imaging Report ---
PROCEDURE: MR imaging of the brain with and without contrast. TECHNIQUE: Multiplanar, multisequence MR imaging of the brain was performed with and without contrast. INDICATION: Follow-up meningioma. Multiple prior surgeries. COMPARISON: None. FINDINGS: Postsurgical changes of left frontal craniotomy and mass resection from the left frontal region are noted. There is encephalomalacia and surrounding gliosis in the left frontal lobe. Ex-vacuo dilation of the left lateral ventricle is seen. No abnormal enhancement is seen within this area to suggest mass recurrence. There is focal T2 hyperintense signal and encephalomalacia in the left temporo-occipital region. Intrinsic blood products are seen within this area. Similar-appearing findings are seen in the anterior right frontal lobe. No abnormal enhancement is associated with either of these areas. No midline shift or herniation. No acute ischemia. The basilar cisterns are symmetric and unremarkable. The sellar and suprasellar regions have a normal appearance. The brainstem and posterior fossa are unremarkable. The paranasal sinuses and mastoid air cells demonstrate normal signal characteristics. Bilateral lens implants are seen. IMPRESSION: 1. Postsurgical changes of left frontal craniotomy and mass resection from the left frontal lobe. No abnormal enhancement is seen to suggest mass recurrence. 2. Focal areas of T2 hyperintense signal and encephalomalacia involving the left temporo-occipital region and right frontal lobe. These may represent areas of prior infarct. 3. No evidence of acute ischemia. Dictated by: Dictated on workstation # [id number]
== END ==
LOC: RAD 12:28
PROVIDERS: ATTEND Neurological Surgery
DX: D32.9 Benign neoplasm of meninges, unspecified (principal); G93.89 Other specified disorders of brain; Z98.890 Other specified postprocedural states
CPT/HCPCS: 70553